=== PATIENT | male | born 1970 | race American Indian/Alaskan Native ===

== ENCOUNTER 2016-11-20 14:05 | Inpatient (IN) | payer MEDICAID ==
[2016-11-20 14:31] VITALS: BMI 23.7
--- NOTE | 2016-11-20 15:24 | ED PDOC ---
Arrival/HPI - General Historian: Patient - General Chief Complaint: Alcohol Ingestion Time Seen by Provider: 11/20/16 14:39 - History of Present Illness Narrative History of Present Illness (Text): 11/20/16 15:21 46yr old male presents today with alcohol intoxication and depression, requesting "help". pt denies fever/chills. denies cp or sob. admits to drinking alcohol today. pt c/o depression, states if he doesnt get help he will kill himself. denies vomiting/diarrhea. denies recent trauma or injury. admits to using cocaine. pt also with foul smelling wound to plantar aspect of left foot. no other complaints. 11/20/16 20:10 (Mora Gallagher) Past Medical History - Provider Review Nursing Documentation Reviewed: Yes - Travel History Have you recently traveled outside [place] w/in the past 3 mons?: No - Infectious Disease Hx of Infectious Diseases: None - Tetanus Immunization Tetanus Immunization: Unknown - Cardiac Hx Cardiac Disorders: Yes (Angina) Hx Hypertension: Yes - Pulmonary Hx Respiratory Disorders: Yes Hx Pneumonia: Yes - Neurological Hx Neurological Disorder: No - HEENT Hx HEENT Disorder: No - Renal Hx Renal Disorder: No - Endocrine/Metabolic Hx Diabetes Mellitus Type 2: Yes - Hematological/Oncological Hx Blood Disorders: No - Integumentary Hx Dermatological Disorder: No - Musculoskeletal/Rheumatological Hx Musculoskeletal Disorders: Yes Hx Falls: No Hx Unsteady Gait: Yes - Gastrointestinal Hx Gastrointestinal Disorders: No - Genitourinary/Gynecological Hx Genitourinary Disorders: Yes Other/Comment: urinary retention - Psychiatric Hx Psychophysiologic Disorder: Yes Hx Anxiety: Yes Hx Depression: Yes Hx Hallucinations: Yes Hx Substance Use: No - Surgical History Other/Comment: "left foot surgery" - Anesthesia Hx Anesthesia: Yes Hx Anesthesia Reactions: No Hx Malignant Hyperthermia: No - Suicidal Assessment Feels Threatened In Home Enviroment: No Family/Social History - Physician Review Nursing Documentation Reviewed: Yes Family/Social History: Unknown Family HX Smoking Status: Heavy Smoker > 10 Cigarettes Daily Hx Alcohol Use: Yes Frequency of alcohol use: Daily Hx Substance Use: No Hx Substance Use Treatment: No Allergies/Home Meds Allergies/Adverse Reactions: Allergies No Known Allergies Allergy (Verified 11/20/16 14:31) Review of Systems - Review of Systems Constitutional: absent: Fatigue, Fevers Respiratory: absent: SOB, Cough Cardiovascular: absent: Chest Pain, Palpitations Gastrointestinal: absent: Abdominal Pain, Nausea, Vomiting Genitourinary Male: absent: Dysuria, Frequency, Hematuria Musculoskeletal: absent: Arthralgias, Back Pain, Neck Pain Skin: Skin Lesions (plantar aspect of left foot.) Neurological: absent: Headache, Dizziness Psychiatric: Depression, Suicidal Ideation. absent: Anxiety Physical Exam Vital Signs Reviewed: Yes Temperature: Afebrile Blood Pressure: Hypertensive Pulse: Tachycardic Respiratory Rate: Normal Appearance: Positive for: Well-Appearing, Non-Toxic, Comfortable Pain Distress: None Mental Status: Positive for: Alert and Oriented X 3 - Systems Exam Head: Present: Atraumatic Mouth: Present: Moist Mucous Membranes Respiratory/Chest: Present: Clear to Auscultation Cardiovascular: Present: Tachycardic. No: Murmurs Abdomen: Present: Normal Bowel Sounds. No: Tenderness, Distention, Peritoneal Signs, Rebound, Guarding Back: Present: Normal Inspection. No: Midline Tenderness, Paraspinal Tenderness Upper Extremity: Present: Normal Inspection, Normal ROM Lower Extremity: Present: NORMAL PULSES, Normal ROM, Tenderness (left foot; there is a quarter sized ulceration on the plantar aspect of the left foot over the 5th metatarsal. + edema. foul smell noted. no discharge. ), Neurovascularly Intact, Capillary Refill < 2 s. No: CALF TENDERNESS, Swelling, Deformity Neurological: Present: GCS=15, Speech Normal Skin: Present: Warm, Dry Psychiatric: Present: Alert Vital Signs Temp Pulse Resp BP Pulse Ox 11/20/16 18:59 98.0 F 102 H 18 115/60 97 11/20/16 14:26 98.2 F 110 H 18 146/98 H 98 Medical Decision Making ED Course and Treatment: I was available for consultation during PA evaluation. The chart was reviewed by me, and I agree with disposition. The documented history was done by the physician production inspector. The documented physical exam was done by the physician production inspector. The documented procedures were done by the physician production inspector. (Sang Haro) 11/20/16 15:32 46 yr old male presents today for pes evaluation, admit to drinking and using cocaine. c/o depression. cbc wbc; 13.6 cmp: glucose; 311 Ua: + glucose UDS: + cocaine tylenol wnl etoh; 179 salicylates; wnl EKG: sinus tachycardia at 107b/m no st elevations, normal axis normal intervals cxr:wnl left foot; + bony irregularity noted to the 5th metatarsal. vanco and zosyn given IV. NS iv bolus case discussed with dr. holland; will admit to med/surg for diabetic foot ulcer with hyperglycemia; non compliant. impression: hyperglycemia, leukocytosis, foot ulcer admit to med/surg with psych consult. (Mora Gallagher) - Lab Interpretations Lab Results: 11/20/16 15:21 11/20/16 15:21 Lab Results 11/20/16 18:57: POC Glucose (mg/dL) 374 H 11/20/16 16:07: Urine Opiates Screen Negative, Urine Methadone Screen Negative, Ur Barbiturates Screen Negative, Ur Phencyclidine Scrn Negative, Ur Amphetamines Screen Negative, U Benzodiazepines Scrn Negative, U Oth Cocaine Metabols Positive H, U Cannabinoids Screen Negative 11/20/16 16:07: Urine Color Light yellow, Urine Appearance Clear, Urine pH 6.0, Ur Specific [place] <= 1.005, Urine Protein Negative, Urine Glucose (UA) 500 H, Urine Ketones Negative, Urine Blood Trace-intact H, Urine Nitrate Negative, Urine Bilirubin Negative, Urine Urobilinogen 0.2, Ur Leukocyte Esterase Trace H , Urine RBC Negative, Urine WBC 0 - 2, Ur Epithelial Cells None, Urine Bacteria Neg 11/20/16 15:21: Salicylates < 1 L, Acetaminophen < 10.0 L 11/20/16 15:21: WBC 13.6 H D, RBC 4.18, Hgb 11.8 L, Hct 33.8 L, MCV 80.9, MCH 28.2, MCHC 34.9, RDW 14.2, Plt Count 285, MPV 10.0, Gran % 67.5, Lymph % (Auto) 23.9, [place] % (Auto) 7.2 H, Eos % (Auto) 1.0 L, Baso % (Auto) 0.4, Gran # 9.17 H , Lymph # 3.2, [place] # 1.0 H, Eos # 0.1, Baso # 0.06 11/20/16 15:21: Alcohol, Quantitative 179 H 11/20/16 15:21: Sodium 139, Potassium 4.0, Chloride 100, Carbon Dioxide 23, Anion Gap 20, BUN 9, Creatinine 0.8, Est GFR ( Amer) > 60, Est GFR (Non- Af Amer) > 60, Random Glucose 311 H* D, Calcium 9.8, Total Bilirubin 0.7, AST 37 , ALT 39, Alkaline Phosphatase 104, Lactate Dehydrogenase 479, Total Creatine Kinase 183, Troponin I 0.02, Total Protein 8.3, Albumin 4.5, Globulin 3.8, Albumin/Globulin Ratio 1.2, Lipase 42 - RAD Interpretation Radiology Orders: 11/20/16 14:53 CHEST PORTABLE [RAD] Stat 11/20/16 19:03 FOOT LEFT 3 VIEWS ROUTINE [RAD] Stat - Medication Orders Current Medication Orders: Vancomycin HCl (Vancomycin 1gm) 1 gm in 250 mls @ 167 mls/hr IVPB STAT STA PRN Reason: Protocol Stop: 11/20/16 20:32 Last Admin: 11/20/16 20:01 Dose: 167 mls/hr Discontinued Medications Piperacillin Sod/Tazobactam Sod (Zosyn 3.375 In Ns 100ml) 100 mls @ 200 mls/hr IVPB STAT STA PRN Reason: Protocol Stop: 11/20/16 19:32 Last Admin: 11/20/16 19:58 Dose: 200 mls/hr Disposition/Present on Arrival - Present on Arrival Any Indicators Present on Arrival: Yes History of DVT/PE: No History of Uncontrolled Diabetes: Yes Urinary Catheter: No History of Decub. Ulcer: No History Surgical Site Infection Following: CABG - Mediastinitis, None - Disposition Have Diagnosis and Disposition been Completed?: Yes Disposition Time: 19:00 Patient Plan: Admission - Disposition Diagnosis: Diabetic foot ulcer associated with type 2 diabetes mellitus, Cocaine abuse, Depression Disposition: HOSPITALIZED Condition: FAIR
[2016-11-20 15:28] LABS: ADD MANUAL DIFF? NO
[2016-11-20 15:45] LABS: BASO # 0.06 K/mm3 (0.0-2.0); BASO % 0.4 % (0.0-3.0); EOS # 0.1 (0.0-0.7); GRAN # 9.17 (1.4-6.5); GRAN % 67.5 % (50.0-68.0); HEMATOCRIT 33.8 % (42.0-52.0); LYMPH # 3.2 (1.2-3.4); LYMPH % 23.9 % (22.0-35.0); MEAN CELL VOLUME 80.9 fL (80.0-105.0); MEAN CORPUSCULAR HEMOGLOBIN 28.2 pg (25.0-35.0); MEAN CORPUSCULAR HGB CONC 34.9 g/dl (31.0-37.0); MONO % 7.2 % (1.0-6.0); PLATELET COUNT 285 10^3/uL (120.0-450.0); RED CELL DISTRIBUTION WIDTH 14.2 % (11.5-14.5); WHITE BLOOD COUNT 13.6 10^3/ul (4.5-11.0)
[2016-11-20 15:56] LABS: ALB/GLOB RATIO 1.2 (1.1-1.8); ALKALINE PHOSPHATASE 104 U/L (38-133); ALT/SGPT 39 U/L (7-56); AST/SGOT 37 U/L (15-59); BILIRUBIN,TOTAL 0.7 mg/dL (0.2-1.3); BLOOD UREA NITROGEN 9 mg/dL (7-21); CALCIUM 9.8 mg/dL (8.4-10.5); CARBON DIOXIDE 23 mmol/L (21-33); CHLORIDE 100 mmol/L (98-107); GFR AFRICAN-AMERICAN > 60; LIPASE 42 U/L (23-300); SODIUM 139 mmol/L (132-148); TOTAL PROTEIN 8.3 g/dL (5.8-8.3)
[2016-11-20 16:03] LABS: GLUCOSE,RANDOM 311 mg/dL (70-110)
[2016-11-20 16:07] LABS: TROPONIN I 0.02 ng/mL
[2016-11-20 16:24] LABS: URINE APPEARANCE CLEAR (CLEAR); URINE BILIRUBIN NEGATIVE (NEGATIVE); URINE BLOOD TRACE-INTACT (NEGATIVE); URINE COLOR LIGHT YELLOW (YELLOW); URINE GLUCOSE (UA) 500 mg/dL (NEGATIVE); URINE KETONE NEGATIVE (NEGATIVE); URINE LEUKOCYTE ESTERASE TRACE Leu/uL (NEGATIVE); URINE PROTEIN NEGATIVE mg/dL (<30 mg/dL); URINE UROBILINOGEN 0.2 E.U./dL (<1 E.U./dL)
--- NOTE | 2016-11-20 17:00 | RAD ---
HISTORY: pes eval COMPARISON: Chest x-ray performed 08/31/16 TECHNIQUE: Chest, one view. FINDINGS: LUNGS: No focal consolidation. Please note that chest x-ray has limited sensitivity for the detection of pulmonary masses. PLEURA: No significant pleural effusion identified. No definite pneumothorax . CARDIOVASCULAR: The cardiomediastinal silhouette appears within normal limits of size. OSSEOUS STRUCTURES: Degenerative changes of the spine. VISUALIZED UPPER ABDOMEN: Unremarkable. OTHER FINDINGS: None. IMPRESSION: No focal consolidation, significant pleural effusion, or definite pneumothorax identified.
[2016-11-20 17:33] LABS: URINE BACTERIA NEG (NEG); URINE RBC NEGATIVE /hpf (0-2); URINE WBC 0 - 2 /hpf (0-6)
[2016-11-20] MEDS ORDERED: Piperacillin/Tazobact 3.375 gm 100 ML IVPB STA (19:03)
[2016-11-20] MEDS ORDERED: Vancomycin 1gm in NS 250ml 1 GM/250 ML BAG IVPB STA (19:03)
[2016-11-20] MEDS ORDERED: Sodium Chloride 0.9% 1,000 ML IV STA (20:21)
--- NOTE | 2016-11-20 22:20 | CARD ---
APPROVED REPORT EKG Measurement Heart [id number] <Conclusion> Sinus tachycardia Otherwise normal ECG
[2016-11-20] MEDS ORDERED: Oxycodone/Acetaminophen 5/325 mg Tab PO PRN (23:13)
[2016-11-20] MEDS: Insulin Reg-MEDIUM-Coverage SC SCH (23:50)
[2016-11-20] MEDS ORDERED: Insulin Regular 1 UNITS/0.01 ML ML ONE (23:52)
[2016-11-21] MEDS: Piperacillin/Tazobact 3.375 gm 100 ML IVPB SCH ×4 (03:06→18:19)
[2016-11-21] MEDS ORDERED: Sodium Chloride 0.9% 1,000 ML IV SCH (04:00)
--- NOTE | 2016-11-21 04:34 | CP.PCM.HP ---
<Astrid Schaefer - Last Filed: 11/21/16 04:33> History of Present Illness - History of Present Illness History of Present Illness: 46 year old male with past medical history of hypertension, diabetes, diabetic foot ulcer, left foot osteomyelitis presents to [facility] ED complaining of left foot pain and feeling depressed. Patient was hospitalized and discharged from [facility] in August 2016 for infect diabetic foot ulcer and a mechanical fall. Patient was instructed to follow up with Dr. Azul at the wound clinic routinely after hospital discharge but he only was able to go once. Patient is also not compliant with his medications. Patient states he came to the hospital today hoping to get admitted to the alcohol detox unit. Patient reports he drinks 3 days out of a week. He usually drinks 6 to 7 large size beer cans each time. His last drink was 9am this morning. Patient also reports of cocaine use, last use was 3 days ago. Patient admits to have thoughts of suicide but does not have a concrete plans nor attempts in the past. Patient states I am just so fed up with life right now. He denies having auditory or visual hallucinations, headache, fever, chills, shortness of breath, chest pain, abdominal pain, nausea, vomiting, diarrhea, or urinary complaints. PMD: Dr. Sousa PMHx: hypertension, diabetes, diabetic foot ulcer, left foot osteomyelitis Allergy: Social hx: drinks alcohol 3 days out of a week, admits to tobacco smoking and cocaine use Family hx Home meds: metformin, amlopidine, lisinopril Present on Admission - Present on Admission Any Indicators Present on Admission: No History of DVT/PE: No History of Uncontrolled Diabetes: No Review of Systems - Constitutional Constitutional: As Per HPI, Lethargy. absent: Chills, Fever, Headache - EENT Eyes: As Per HPI. absent: Blurred Vision, Irritation, Loss of Vision Ears: As Per HPI. absent: Dizziness Nose/Mouth/Throat: As Per HPI. absent: Change in Voice, Dysphagia - Cardiovascular Cardiovascular: As Per HPI. absent: Chest Pain, Chest Pain with Activity, Dyspnea - Respiratory Respiratory: As Per HPI. absent: Cough, Dyspnea, Wheezing - Gastrointestinal Gastrointestinal: As Per HPI. absent: Diarrhea, Nausea, Vomiting - Genitourinary Genitourinary: absent: Urinary Frequency, Urinary Hesitance, Urinary Urgency - Musculoskeletal Musculoskeletal: As Per HPI. absent: Deformity, Numbness, Tingling - Integumentary Integumentary: As Per HPI. absent: Erythema, Lesions, Pruritus, Rash - Neurological Neurological: As Per HPI. absent: Dizziness, Numbness, Syncope, Tremor - Psychiatric Psychiatric: As Per HPI, Depression, Suicidal Ideation. absent: Auditory Hallucinations, Visual Hallucinations - Endocrine Endocrine: As Per HPI - Hematologic/Lymphatic Hematologic: As Per HPI Past Patient History - Infectious Disease Hx of Infectious Diseases: None - Tetanus Immunizations Tetanus Immunization: Unknown - Past Social History Smoking Status: Current Some Days Smoker - CARDIAC Hx Cardiac Disorders: Yes Hx Angina: Yes Hx Hypercholesterolemia: Yes Hx Hypertension: Yes - PULMONARY Hx Respiratory Disorders: Yes Hx Pneumonia: Yes - NEUROLOGICAL Hx Neurological Disorder: No - HEENT Hx HEENT Problems: No - RENAL Hx Chronic Kidney Disease: No - ENDOCRINE/METABOLIC Hx Endocrine Disorders: Yes Hx Diabetes Mellitus Type 2: Yes - HEMATOLOGICAL/ONCOLOGICAL Hx Blood Disorders: No - INTEGUMENTARY Hx Dermatological Problems: No - MUSCULOSKELETAL/RHEUMATOLOGICAL Hx Musculoskeletal Disorders: Yes Hx Falls: Yes (3 months ago (Aug 2016)) Hx Unsteady Gait: Yes - GASTROINTESTINAL Hx Gastrointestinal Disorders: No - GENITOURINARY/GYNECOLOGICAL Hx Genitourinary Disorders: No - PSYCHIATRIC Hx Psychophysiologic Disorder: Yes Hx Anxiety: Yes Hx Depression: Yes Hx Hallucinations: Yes Hx Substance Use: Yes - SURGICAL HISTORY Hx Surgeries: Yes (left foot) - ANESTHESIA Hx Anesthesia: Yes Hx Anesthesia Reactions: No Hx Malignant Hyperthermia: No Meds Allergies/Adverse Reactions: Allergies Allergy/AdvReac Type Severity Reaction Status Date / Time No Known Allergies Allergy Verified 11/20/16 14:31 Physical Exam - Constitutional Appears: Non-toxic, No Acute Distress - Head Exam Head Exam: ATRAUMATIC, NORMAL INSPECTION, NORMOCEPHALIC - Eye Exam Eye Exam: EOMI, Normal appearance, PERRL - ENT Exam ENT Exam: Mucous Membranes Moist - Neck Exam Neck exam: Positive for: Normal Inspection - Respiratory Exam Respiratory Exam: Clear to Auscultation Bilateral, NORMAL BREATHING PATTERN. absent: Rhonchi, Wheezes, Respiratory Distress - Cardiovascular Exam Cardiovascular Exam: REGULAR RHYTHM, RRR, +S1, +S2 - GI/Abdominal Exam GI & Abdominal Exam: Normal Bowel Sounds, Soft. absent: Tenderness - Extremities Exam Extremities exam: Positive for: normal capillary refill, tenderness, pedal pulses present. Negative for: pedal edema Additional comments: Left foot tenderness in the plantar surface, non-draining ulceration, dark discoloration - Back Exam Back exam: NORMAL INSPECTION. absent: paraspinal tenderness, vertebral tenderness - Neurological Exam Neurological exam: Alert, Oriented x3 - Psychiatric Exam Psychiatric exam: Normal Affect, Normal Mood - Skin Skin Exam: Dry, Warm Results - Vital Signs Recent Vital Signs: Last Vital Signs Temp 97.7 F 11/21/16 02:40 Pulse 92 H 11/21/16 02:40 Resp 20 11/21/16 02:40 BP 151/90 H 11/21/16 02:40 Pulse Ox 98 11/20/16 22:27 - Labs Result Diagrams: 11/20/16 15:21 11/20/16 15:21 Labs: Laboratory Results - last 24 hr 11/20/16 23:49 POC Glucose (mg/dL) 329 H Assessment & Plan - Assessment and Plan (Free Text) Assessment: 46 year old male with past medical history of hypertension, diabetes, diabetic foot ulcer presents with left foot pain and alcohol intoxication Plan: Left Diabetic foot ulcer, hx of osteomyelitis -Leukocytosis at 13.6, afebrile -Vancomycin and zosyn given in the ED -Left foot x-ray showed bony irregularity on 5th metatarsal bone -ID consult, Dr. Garcia help appreciated -Podiatry consult, Dr. Azul help appreciated -Follow up dangelo cultures -Tylenol for mild pain -Percocet for moderate pain Alcohol intoxication -CIWA protocol -No tremors appreciated -Cessation was advised -NS @100ml/hr -multivitamin -Ativan 1mg prn Depression -Psychiatry consult, Dr. Saunders help appreciated DM -Follow up A1c -ISS -FS ACHS -resume metformin HTN -resume lisinopril, Norvasc Cocaine and tobacco abuse -Cessation was advised -nicotine patch Prophylactic measures -protonix for GI ppx -lovenox for DVT ppx <Tate Lopez - Last Filed: 11/22/16 19:51> Results - Vital Signs Recent Vital Signs: Last Vital Signs Temp 98 F 11/21/16 16:00 Pulse 72 11/21/16 16:00 Resp 20 11/21/16 16:00 BP 138/90 11/21/16 16:00 Pulse Ox 98 11/21/16 16:00 - Labs Result Diagrams: 11/21/16 07:00 11/21/16 07:00 Labs: Laboratory Results - last 24 hr 11/21/16 11/22/16 11/22/16 21:30 07:34 11:39 POC Glucose (mg/dL) 272 H 202 H 191 H 11/22/16 16:30 POC Glucose (mg/dL) 175 H Attending/Attestation - Attestation I have personally seen and examined this patient.: Yes I have fully participated in the care of the patient.: Yes I have reviewed all pertinent clinical information: Yes Notes (Text): 11/22/16 19:50 Patient was seen with medical records technician when he was in the ER. Agree with history, physical examination ,assessment and plan.
[2016-11-21] MEDS: Vancomycin 1gm in NS 250ml 1 GM/250 ML BAG IVPB SCH ×2 (05:22→18:21)
[2016-11-21 07:43] LABS: ADD MANUAL DIFF? NO
[2016-11-21 07:59] LABS: BASO # 0.04 K/mm3 (0.0-2.0); BASO % 0.4 % (0.0-3.0); EOS # 0.1 (0.0-0.7); EOS % 1.1 % (1.5-5.0); GRAN # 6.74 (1.4-6.5); GRAN % 60.3 % (50.0-68.0); HEMATOCRIT 30.2 % (42.0-52.0); LYMPH # 3.4 (1.2-3.4); LYMPH % 30.5 % (22.0-35.0); MEAN CELL VOLUME 81.6 fL (80.0-105.0); MEAN CORPUSCULAR HEMOGLOBIN 27.8 pg (25.0-35.0); MEAN CORPUSCULAR HGB CONC 34.1 g/dl (31.0-37.0); MONO # 0.9 (0.1-0.6); MONO % 7.7 % (1.0-6.0); PLATELET COUNT 252 10^3/uL (120.0-450.0); RED CELL DISTRIBUTION WIDTH 14.3 % (11.5-14.5); WHITE BLOOD COUNT 11.2 10^3/ul (4.5-11.0)
--- NOTE | 2016-11-21 08:02 | RAD ---
PROCEDURE: Left Foot Radiographs. HISTORY: foot pain/swelling COMPARISON: MRI left foot 09/03/2016 and left foot x-ray 08/31/2016 FINDINGS: BONES: No interval fracture. Fifth metatarsal head deformity with cortical irregularity and sclerosis and partial subluxation is similar-appearing. The prominent fibular sided soft tissue prominence and mild increased density is also re- noted. Findings consistent with a remote history is of chronic osteomyelitis this soft tissue findings were MR noted as phlegmonous and/or a crescentic developing abscess These radiographic appearances are similar to the 08/31/2016 study. The os peroneum and a ossification bordering the hypertrophic tibial perhaps old trauma and/or an unusual developmental variant -old trauma/old osseous avulsion given the hypertrophic changes of this portion of the tibial plafond are favored. A change here suggested First metatarsal-phalangeal joint space narrowing with minimal hallux valgus orientation. Hammertoe like orientations there is some nonstick ossific areas of lucency in the lateral soft tissues at the proximal phalangeal level - findings were similar on the 08/31/2016 study. Clinical correlation regarding any chronic unhealed ulcers here is needed. Interval periosteal reaction or interval gross osseous destruction appreciated JOINTS: As above SOFT TISSUES: Normal. OTHER FINDINGS: None. IMPRESSION: The 5th metatarsal phalangeal joint deformity/ subluxation is similar. The 1st metatarsal head osseous hypertrophy and patchy sclerosis are similar appearing consistent with chronic osteomyelitis. Acute on chronic pathology is not excluded. No interval periosteal reaction seen here. No interval gross additional cortical destruction suggested. Axilla in the regional soft tissue changes are similar consistent with chronic ulcer in her chronic cellulitis here. For this clinical correlation needed. If symptoms persist/ for further evaluation is needed, consider MRI.
[2016-11-21 08:16] LABS: ALKALINE PHOSPHATASE 84 U/L (38-133); ALT/SGPT 40 U/L (7-56); AST/SGOT 19 U/L (15-59); BILIRUBIN,TOTAL 0.4 mg/dL (0.2-1.3); BLOOD UREA NITROGEN 15 mg/dL (7-21); CALCIUM 8.7 mg/dL (8.4-10.5); CARBON DIOXIDE 25 mmol/L (21-33); CHLORIDE 107 mmol/L (95-110); GFR AFRICAN-AMERICAN > 60; GLUCOSE,RANDOM 194 mg/dL (70-110); POTASSIUM 3.9 mmol/L (3.6-5.0); SODIUM 140 mmol/L (132-148); TOTAL PROTEIN 6.2 g/dL (5.8-8.3)
[2016-11-21] MEDS: Insulin Reg-MEDIUM-Coverage SC SCH ×4 (09:45→21:47)
[2016-11-21] MEDS: Multivitamin With Minerals Tab PO SCH (11:21)
--- NOTE | 2016-11-21 12:10 | CON ---
DATE: 11/21/2016 Shortly, the patient is a 46-year-old male with history of alcohol abuse, as well as substance abuse. The patient has self-reported history of depression. The patient denied history o f being admitted to the psychiatric inpatient unit. The patient initially came to the Emergency Room requesting help with nonspecific complaint. The patient was intoxicated. Alcohol level was 179, an d cocaine was positive. The patient was found to have osteomyelitis, and the patient presently on e medical side with IV antibiotics. This tag writer is very familiar with this patient from the previous admissions on the medical floor. Mo st recent was in 04/2016. The patient has history of noncompliance with medications, as well as foll owup appointments, history of providing incorrect information. The patient was seen today on the medical side. The patient presented to be alert and oriented. The patient has vague complaints. The patient was saying that he has difficulty to stay focused and mem ory problems, but it could be related to the substance abuse and alcohol use disorder. The patient r eported that his 4 kids were killed, and it was not new, and the patient had that loss years back. T he patient reported that he lives with his current partner in [place], and he has a 2-year-old so n. The patient also reported that he has a 12-year-old daughter. The patient reported that he was n ot able to work because of the pain in his leg, and he is applying for disability. The patient denie d hearing voices, denied seeing things, denied paranoid ideations. VITAL SIGNS: Reviewed. Temperature is 97.7. Pulse is 92, blood pressure 151/90, respirations 20. Oxygen saturation is 98. MEDICATIONS: Reviewed. The patient is on Tylenol, Norvasc, Humulin, Zestril, Ativan 1 mg IV push q. 6 hours as needed, Glucophage, multivitamins, Percocet, Zosyn, sodium chloride, and vancomycin. LABORATORY DATA: Reviewed. Hematology: WBC cells 11.2, hemoglobin and hematocrit 10.3 and 30.2. G ranulocytes ____. Chemistry reviewed. AST and ALT within normal limits. Random glucose is 194. Ur inalysis was reviewed. The patient has blood in his urine, glucose 500, and leukocyte esterase is tr jennifer high. Toxicology was positive for cocaine as well as alcohol level was 179. The patient reported that he fills his medications at [facility], , as well as [facility], . This tag writer gave a call to the [facility]. Last time the patient filled medication was in 2015. The patient was on Glyburide, as well as Xanax 1 mg daily, filled in 01/[address] Wild Traylor. [place] [facility] - nobody picked up the phone. MENTAL STATUS EXAMINATION: The patient presented to be alert and oriented, awake with ____, intermi ttent eye contact. Speech was over-inclusive, lack of details. Mood described "things are not going well." Affect was reactive, mood congruent. Thought process was over-inclusive, circumstantial. T hought content: The patient denies visual, auditory, or tactile hallucinations. Denied paranoid pedro ations. The patient denied thoughts of harming himself or others, denied intent or plan. Insight an d judgment are limited. Impulses are well controlled. IMPRESSION: This tag writer has impression that the patient is abusing cocaine, as well as alcohol, rule out stimulant use disorder and alcohol use disorder. Most likely mood is related to the substances what he is taking. At the present moment, this tag writer cannot exclude that the patient has malingerin g. The patient is applying for social security disability and looking for a stay in the hospital. T he patient has multiple medical problems including hypertension, diabetes, diabetic foot ulcer, left foot osteomyelitis. PLAN: Continue current management. Continue current medications. The patient is on Ativan as neede d for withdrawal symptoms. This tag writer could implement Cymbalta for the patient for depressive sympt oms as well as neuropathy. The patient could have Neurontin at the nighttime in case of insomnia. T his tag writer does not feel that the patient needs to be transferred to the psychiatric inpatient unit. As per pharmacy, the patient was not filling any psychotropic medications since 2015. The patient w ill be on the medical side. He is on contact isolation. We will follow up on this patient every oth er day. Thank you so much for letting me participate in the care of your patient. Shelly Saunders MD cc: [phone] TT: 11/21/2016 12:10:00 Confirmation # [id number] Dictation # [id number] jn
--- NOTE | 2016-11-21 12:25 | PN ---
DATE: 11/21/2016 The patient requested to see this automotive service writer again. The patient asked to be seen by urologist because he has blood in his urine. The patient appears to be concerned about that. At the same time, the gladys ent was educated about Cymbalta, Neurontin. Risks, benefits and alternatives of the medications were discussed. The patient seems to be concerned about his health. The patient does not appear to be d epressed, suicidal or psychotic. Thank you very much for letting me participate in the care of your patient. Nursing staff was notifi ed. Consult will be initiated by medical team if they are in agreement with that plan. Shelly Saunders MD cc: [id number] TT: 11/21/2016 10:41:28 Confirmation # [id number] Dictation # [id number] jese
--- NOTE | 2016-11-21 17:10 | PN ---
DATE: 11/21/2016 HISTORY OF PRESENT ILLNESS: This patient is a 46-year-old male seen at bedside for a diabetic foot ul cer to his left foot. This is a chronic problem with this patient. He never follows up at the wound care center. I asked him why he did not follow up and he states that the wound went on to heal. I did also tell him that he needed to get diabetic shoes to prevent the wound from reoccurring. Gillian hernandez, he states that they are so ugly and he is too young to wear those type of shoes. PAST MEDICAL HISTORY: Positive for hypertension, diabetes and a history of osteomyelitis to the same area that he has at this time. He had been treated with 5 weeks of IV antibiotic therapy at which t alee the wound went on to heal last year. The patient at this visit is stating that he is depressed, that he is tired of drinking and doing drugs and that he wants to go into rehabilitation. He needs a n inpatient rehabilitation in order to help him get clean. The patient's medications were reviewed. He has been seen by psych and he is presently on Ativan and Cymbalta as well as Glucophage, Humulin, Neurontin, Norvasc, OxyContin for pain, which I am going to stop, sodium chloride and multivitamin. The patient also is on folic acid daily. VITAL SIGNS: Reviewed. His temperature is 97.4, his pulse is 73. His blood pressure is 141/88. LABORATORY DATA: The patient's labs were reviewed. His white cell count upon admission is 13.6; it is 11.2 today with the IV antibiotics. His H and H is 10.3 and 30.2. His chemistry shows grossly wi thin normal except for his glucose at 194. His urine had over 500 glucose and his toxicology was pos itive for alcohol and cocaine. PHYSICAL EXAMINATION: The patient's foot was inspected. He has 1/4 palpable pedal pulses. He has a callus on the plantar aspect of his 5th MPJ on the left foot. He is insensate to feeling on his lef t foot and with permission, we debrided the callus and found an abscess. There was approximately 4-5 mL of a pink purulence which was released. However, this wound goes right to the bone. I discussed with the patient that this means another round of IV antibiotics. I also spoke with the patient abou t surgical correction for this wound. I told him that we could debride the bone, which would definit jose take care of the infection; however, that would involve losing his pinky toe and part of the 5th metatarsal. The patient states he does not want to lose any of his foot at this time. He wants to t ry antibiotics again. The patient's x-rays were reviewed. There is callus formation around the 5th metatarsal and 5th MPJ secondary to the old osteomyelitis. At this time, there is no new periosteal lifting or erosions noted; however, because this wound probes right to that bone, he has to be consid ered positive for osteomyelitis. The patient's chest x-ray was also reviewed and there does not appe ar to be any pleural effusions. ASSESSMENT: A diabetic with neuropathy with abscess to the left foot and osteomyelitis of the 5th me tatarsal of the right foot. PLAN OF TREATMENT: Bedside I and D was done with the patient's permission and extrusion of abscess. The wound was copiously flushed with saline and iodoform packing was placed into the cavity. The pa tient will need to be off-weightbearing. He does have an off-weightbearing shoe which we had given t o him before which he does not use and he will be seen in followup. A dry sterile dressing was place d on it and the cultures were sent to down to pathology. The patient will be seen in followup. Emani Azul DPM cc: [id number] TT: 11/21/2016 17:09:50 Confirmation # [id number] Dictation # [id number] twyla
[2016-11-21 17:25] LABS: URINE BILIRUBIN NEGATIVE (NEGATIVE); URINE BLOOD TRACE-LYSED (NEGATIVE); URINE GLUCOSE (UA) 100 mg/dL (NEGATIVE); URINE KETONE NEGATIVE (NEGATIVE); URINE LEUKOCYTE ESTERASE TRACE Leu/uL (NEGATIVE); URINE PROTEIN NEGATIVE mg/dL (<30 mg/dL); URINE UROBILINOGEN 0.2 E.U./dL (<1 E.U./dL)
[2016-11-21 17:32] LABS: URINE APPEARANCE CLEAR (CLEAR); URINE COLOR YELLOW (YELLOW)
[2016-11-21 18:04] LABS: URINE EPITHELIAL CELLS 0 - 2 /hpf (0-5)
[2016-11-21 18:05] LABS: URINE BACTERIA SMALL (NEG)
[2016-11-22] MEDS ORDERED: Lidocaine 2% Inj (20ml) ONE (14:18)
--- NOTE | 2016-11-22 16:19 | CON ---
DATE: 11/22/2016 LOCATION: 576, bed 2. The patient was seen earlier this morning. REASON FOR CONSULTATION: Left foot pain and possible infection. HISTORY OF PRESENT ILLNESS: We have a 46-year-old male with past medical history of alcoholism, illi cit drug use, history of osteomyelitis of the left foot, who comes in complaining of worsening of lef t foot pain for the past 3-4 days; however, the pain has been present for a few weeks now. The patie nt was recently admitted in [facility] for the same problem, and the patient is noted to have a history of osteomyelitis of the same area, the 5th metatarsal head on the left foot. This erin e the pain has been worsening and there is also a note of ulcer, although there is note of some disch arge but it is not thick and purulent. The patient denies animal contacts, denies wading in [place] r swimming in [place], denies walking barefoot on soil, has not had any travel outside of [place] i n the past 3 months, denies fever or chills, no nausea, no vomiting, no headache, no dizziness, no bl urring of vision, no sore throat, no odynophagia, no dysphagia, no rhinorrhea, no chest pain, no abdo rosalio pain, no diarrhea and no dysuria, no hematuria. Because of the possible infection, infectious disease has been consulted for further evaluation and management. REVIEW OF SYSTEMS: As per history of present illness. PAST MEDICAL HISTORY: As per history of present illness. FAMILY MEDICAL HISTORY: Noncontributory. PERSONAL AND SOCIAL HISTORY: The patient is an occasional smoker, occasional illicit drug user, also drinks alcoholic beverages. OBJECTIVE: VITAL SIGNS: The patient is afebrile, blood pressure 130/70, heart rate of 84, respiratory rate of 2 0. HEAD AND NECK: Normocephalic, atraumatic. CHEST: Decreased breath sounds bilaterally. HEART: S1, S2 are normal. ABDOMEN: Soft, nontender, not distended. EXTREMITIES: The lateral part of the left foot has an ulcer on the lateral side which probes to bone . LABORATORY DATA: We are able to review the labs from yesterday. WBC count from 13.6 went down to 11 .2, platelets 252. The GFR is greater than 60. Alcohol level is 179. Has positive cocaine on urina ry drug screen. Foot x-ray does not show sequelae of osteomyelitis. ASSESSMENT: We have a 46-year-old male with past medical history of alcohol abuse and illicit drug u se, history of osteomyelitis of the left foot, coming in with probable sepsis due to left foot chroni c osteomyelitis. We have discussed the findings with Dr. Azul, and the patient will need at least 4-6 weeks of IV antibiotics and possible even a longer duration of antibiotic treatment. PLAN: We have started the patient on broad spectrum antibiotics. We will follow up cultures taken b y Dr. Azul's team to see if we can narrow down our broad spectrum antibiotics. The patient will n eed prolonged antibiotic course, as said at least 4-6 weeks but probably a more prolonged course chrissy use of the chronicity of the osteomyelitis. The patient will need to follow up at the wound center w [facility] Dr. Azul and her team. We will continue to follow this patient clinically. Orlando Lim M.D. cc: [id number] TT: 11/22/2016 16:18:42 Confirmation # [id number] Dictation # [id number] macy
[2016-11-23] MEDS: Piperacillin/Tazobact 3.375 gm 100 ML IVPB SCH ×5 (00:17→23:53)
[2016-11-23] MEDS: Vancomycin 1gm in NS 250ml 1 GM/250 ML BAG IVPB SCH ×3 (06:31→17:21)
--- NOTE | 2016-11-23 08:17 | PN ---
DATE: 11/22/2016 SUBJECTIVE: This is a 46-year-old diabetic male patient who was seen at bedside this morning with Dr. Azul present for followup of left foot ulceration. The patient is seen resting comfortably in bed at time of visit. Denies any acute overnight events. Denies fever, nausea, vomiting, chills, shortness of breath or chest pain. Denies any pain or discomfort to the foot at this time. Says he has not been walking very much since he was seen yesterday. The patient also states that he is requesting a rehab facility for possible therapy and possible detox. Denies any other complaints at this time. LOWER EXTREMITY EXAMINATION (LEFT FOOT FOCUSED ): VASCULAR: Pedal pulses are palpable, capillary refill is less than 3 seconds to digits x 5. Skin temperature runs warm to warm from proximal to distal. There is slight nonpitting edema noted to the plantar lateral aspect of the foot at the fifth MTPJ area. NEUROLOGIC: pedal sensation is grossly diminished. DERMATOLOGIC: There is a full thickness ulceration noted to the plantar lateral aspect of the left foot at the MTPJ. Ulceration probes to bone. There is approximately 1 mL of serosanguineous drainage noted on compression of the ulceration. Ulceration measures approximately 0.4 x 0.3 cm x 0.5 cm. There is no malodor, no tracking, no fluctuance, no purulence noted. No surrounding erythema. ORTHO: No tenderness noted on palpation of ulceration or periulcerative site. ASSESSMENT: A 46-year-old male diabetic patient with ulceration to left foot secondary to diabetic neuropathy. PLAN: The patient seen and evaluated with Dr. Azul present. Chart reviewed. Ulceration site flushed copiously with sterile normal saline, 1/4 inch iodoform packing reapplied to the ulceration site. Dressing applied with DSD. . Awaiting wound culture results. Will likely require PICC line for IV antibiotics. Podiatry will continue to follow while he is in-house. 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
[2016-11-23] MEDS: Insulin Reg-MEDIUM-Coverage SC SCH ×4 (09:24→22:48)
[2016-11-23] MEDS: Multivitamin With Minerals Tab PO SCH (09:25)
--- NOTE | 2016-11-23 10:57 | PN ---
DATE: 11/23/2016 The patient was followed up today on the medical side. The patient presented to be alert and oriente d with much improvement to compare with the last time when this database report writer spoke to the patient. The lydia ient reported that he tolerated all medications well. Mood is improving. Sleep is good. Anxiety is under control. VITAL SIGNS: Within normal limits. MEDICATIONS: Reviewed. The patient is on Cymbalta 30 mg daily, Neurontin 300 mg 3 times a day. The patient also is on Ativan as needed as per medical team and patient is on metformin, multivitamins, Zosyn as well as sodium chloride and vancomycin. Microbiology reviewed, gram-negative barron from the wound culture. Reports reviewed. Cardiac catheter ization was done on . Consultation by Dr. Lim was done yesterday. At present moment, patient is septic, on contact isolation, needs to have broad spectrum antibiotics. Collaterals from the nurs ing staff. The patient is doing well, no signs of depression. The patient has good appetite and sle ep. MENTAL STATUS EXAMINATION: The patient alert and oriented, pleasant, cooperative. The patient repor hi his mood is "I'm fine." Affect was more reactive, mood congruent. Speech was more spontaneous, normal rate, tone, quality, and quantity. Thought process was coherent and goal directed. Thought c ontent: The patient denied visual, auditory, tactile hallucinations. Denied paranoid ideation. The patient denied thoughts of killing himself or others, denied intent or plan. Insight and judgment a re improving. Impulses are well controlled. IMPRESSION: Rule out substance-induced mood disorder, rule out mood disorder due to general medical condition. The patient has history of polysubstance abuse and dependence and alcohol abuse and depen dence. PLAN: Continue current management. The patient tolerated Cymbalta well, Neurontin as well. The lydia townsend needs to be followed up with his outpatient psychiatrist. The patient has all of the informatio n about his primary care psychiatrist to follow up there. From this database report writer's perspective, there is n o need for psychiatry team to follow patient up. The patient is not suicidal, not homicidal, not psy chotic. This database report writer will sign off. Should you have any questions, give me a call back. If patient wants to go to rehab, social work evaluation is recommended. Shelly Saunders MD cc: [id number] TT: 11/23/2016 10:56:45 Confirmation # [id number] Dictation # [id number] en
[2016-11-23] MEDS: Oxychlorosene Topical 2 gm Packet TOP SCH (11:50)
--- NOTE | 2016-11-23 12:36 | CP.PCM.PN ---
<Gretchen Garcia - Last Filed: 11/23/16 12:30> Subjective - Date & Time of Evaluation Date of Evaluation: 11/23/16 Time of Evaluation: 11:45 - Subjective Subjective: 46 yo diabetic male patient seen at bedside this morning for follow up of left foot ulceration. Pt seen resting comfortably in bed at time of visit. Pt denies any acute overnight events, denies and pain or discomfort to the left foot at this time. Denies f/n/v/c/sob/cp. Says that he received the PICC line. Denies any other pedal complaints at this time. Objective - Vital Signs/Intake and Output Vital Signs (last 24 hours): Temp Pulse Resp BP Pulse Ox 98.3 F 87 20 131/82 100 11/23/16 08:00 11/23/16 08:00 11/23/16 08:00 11/23/16 09:27 11/23/16 08:00 Intake and Output: 11/23/16 11/23/16 06:59 18:59 Output Total 400 Balance -400 - Medications Medications: Current Medications Acetaminophen (Tylenol 325mg Tab) 650 mg PO Q4 PRN PRN Reason: Pain, Mild (1-3) Acetaminophen (Tylenol 325mg Tab) 650 mg PO Q4 PRN PRN Reason: Fever >100.4 F Amlodipine Besylate (Norvasc) 10 mg PO DAILY [facility] Last Admin: 11/23/16 09:25 Dose: 10 mg Duloxetine HCl (Cymbalta) 30 mg PO DAILY [facility] Last Admin: 11/23/16 09:24 Dose: 30 mg Folic Acid (Folic Acid) 1 mg PO DAILY [facility] Last Admin: 11/23/16 09:24 Dose: 1 mg Gabapentin (Neurontin) 300 mg PO TID [facility] PRN Reason: Protocol Last Admin: 11/23/16 09:25 Dose: 300 mg Vancomycin HCl (Vancomycin 1gm) 1 gm in 250 mls @ 167 mls/hr IVPB Q12H [facility] PRN Reason: Protocol Last Admin: 11/23/16 09:26 Dose: Not Given Piperacillin Sod/Tazobactam Sod (Zosyn 3.375 In Ns 100ml) 100 mls @ 200 mls/hr IVPB Q6 [facility] PRN Reason: Protocol Stop: 11/28/16 00:01 Last Admin: 11/23/16 06:35 Dose: 200 mls/hr Sodium Chloride (Sodium Chloride 0.9%) 1,000 mls @ 100 mls/hr IV .Q10H [facility] Last Admin: 11/21/16 05:01 Dose: 100 mls/hr Insulin Human Regular (Humulin R Med) 0 units SC ACHS [facility] PRN Reason: Protocol Last Admin: 11/23/16 09:24 Dose: 1 units Lisinopril (Zestril) 10 mg PO DAILY [facility] Last Admin: 11/23/16 09:27 Dose: 10 mg Lorazepam (Ativan) 1 mg IVP Q6H PRN; Protocol PRN Reason: Symptoms of alcohol withdrawl Last Admin: 11/21/16 11:22 Dose: 1 mg Metformin HCl (Glucophage) 500 mg PO BID [facility] Last Admin: 11/23/16 09:24 Dose: 500 mg Multivitamins/Minerals (Therapeutic-M Tab) 1 tab PO DAILY [facility] Last Admin: 11/23/16 09:25 Dose: 1 tab Oxychlorosene Sodium (Clorpactin Wcs-90) 2 gm TOP DAILY [facility] Thiamine HCl (Vitamin B1 Tab) 100 mg PO DAILY [facility] Last Admin: 11/23/16 09:27 Dose: 100 mg - Labs Labs: 11/21/16 07:00 11/21/16 07:00 - Constitutional Appears: Non-toxic, No Acute Distress - Extremities Exam Additional comments: Left lower ext. exam: Bandage absent from left foot at time of visit VASC- DP pulse is palpable 2/4, PT pulse is 1/4, skin temp runs warm to warm, cap refill <4 sec to digits x 5, no pedal edema noted NEURO- pedal sensation is grossly diminished DERM- there is a full thickness ulceration noted to the plantar aspect of 5th metatarsal head, scant serosanguinous drainage noted on compression, positive probe to bone, no purulence, no malodor, no sinus tracking, no surrounding or ascending cellulitis appreciated ORTHO- no tenderness to palpation of ulceration site - Neurological Exam Neurological Exam: Alert, Awake, Oriented x3 - Psychiatric Exam Psychiatric exam: Normal Affect, Normal Mood Assessment and Plan - Assessment and Plan (Free Text) Assessment: 46 yo patient with left foot ulceration with likely osteomyelitis of 5th metatarsal Plan: -Pt S&E at bedside -Plan discussed with attending Dr. Alvarado -Chart, labs, vitals reviewed: afebrile, WBC trending down (10.0 today) -Wound flushed with sterile saline, 1/4 inch iodoform packing to wound, with 4x4 gauze and kerlix -Discussed w/ patient that he will require 4-6 weeks of IV abx per PICC for OM of the foot -Advised patient that he may require surgical intervention of the foot at a future date -Pt advised to wear surgical shoe to the left foot when weightbearing -Strongly advised to f/u with wound care center to see Dr. Azul following discharge <Rai Alvarado - Last Filed: 11/23/16 16:42> Objective - Vital Signs/Intake and Output Vital Signs (last 24 hours): Temp Pulse Resp BP Pulse Ox 97.9 F 85 18 123/78 95 11/23/16 15:51 11/23/16 15:51 11/23/16 15:51 11/23/16 15:51 11/23/16 15:51 Intake and Output: 11/23/16 11/23/16 06:59 18:59 Output Total 400 Balance -400 - Medications Medications: Current Medications Acetaminophen (Tylenol 325mg Tab) 650 mg PO Q4 PRN PRN Reason: Pain, Mild (1-3) Acetaminophen (Tylenol 325mg Tab) 650 mg PO Q4 PRN PRN Reason: Fever >100.4 F Amlodipine Besylate (Norvasc) 10 mg PO DAILY [facility] Last Admin: 11/23/16 09:25 Dose: 10 mg Duloxetine HCl (Cymbalta) 30 mg PO DAILY [facility] Last Admin: 11/23/16 09:24 Dose: 30 mg Folic Acid (Folic Acid) 1 mg PO DAILY [facility] Last Admin: 11/23/16 09:24 Dose: 1 mg Gabapentin (Neurontin) 300 mg PO TID [facility] PRN Reason: Protocol Last Admin: 11/23/16 14:15 Dose: 300 mg Vancomycin HCl (Vancomycin 1gm) 1 gm in 250 mls @ 167 mls/hr IVPB Q12H [facility] PRN Reason: Protocol Last Admin: 11/23/16 09:26 Dose: Not Given Piperacillin Sod/Tazobactam Sod (Zosyn 3.375 In Ns 100ml) 100 mls @ 200 mls/hr IVPB Q6 [facility] PRN Reason: Protocol Stop: 11/28/16 00:01 Last Admin: 11/23/16 13:56 Dose: 200 mls/hr Sodium Chloride (Sodium Chloride 0.9%) 1,000 mls @ 100 mls/hr IV .Q10H [facility] Last Admin: 11/21/16 05:01 Dose: 100 mls/hr Insulin Human Regular (Humulin R Med) 0 units SC ACHS [facility] PRN Reason: Protocol Last Admin: 11/23/16 13:14 Dose: 1 units Lisinopril (Zestril) 10 mg PO DAILY [facility] Last Admin: 11/23/16 09:27 Dose: 10 mg Lorazepam (Ativan) 1 mg IVP Q6H PRN; Protocol PRN Reason: Symptoms of alcohol withdrawl Last Admin: 11/21/16 11:22 Dose: 1 mg Metformin HCl (Glucophage) 500 mg PO BID [facility] Last Admin: 11/23/16 09:24 Dose: 500 mg Multivitamins/Minerals (Therapeutic-M Tab) 1 tab PO DAILY [facility] Last Admin: 11/23/16 09:25 Dose: 1 tab Oxychlorosene Sodium (Clorpactin Wcs-90) 2 gm TOP DAILY [facility] Last Admin: 11/23/16 11:50 Dose: 2 gm Thiamine HCl (Vitamin B1 Tab) 100 mg PO DAILY [facility] Last Admin: 11/23/16 09:27 Dose: 100 mg - Labs Labs: 11/22/16 07:00 11/21/16 07:00 Attending/Attestation - Attestation I have personally seen and examined this patient.: Yes I have fully participated in the care of the patient.: Yes I have reviewed all pertinent clinical information, including history, physical exam and plan: Yes
[2016-11-23 12:39] LABS: HEMATOCRIT 31.7 % (42.0-52.0); MEAN CELL VOLUME 82.1 fL (80.0-105.0); MEAN CORPUSCULAR HGB CONC 34.1 g/dl (31.0-37.0); RED CELL DISTRIBUTION WIDTH 14.1 % (11.5-14.5); WHITE BLOOD COUNT 10.1 10^3/ul (4.5-11.0)
[2016-11-23 17:13] LABS: ALKALINE PHOSPHATASE 85 U/L (38-133); ALT/SGPT 39 U/L (7-56); AST/SGOT 33 U/L (15-59); BILIRUBIN,TOTAL 0.7 mg/dL (0.2-1.3); BLOOD UREA NITROGEN 9 mg/dL (7-21); CALCIUM 8.7 mg/dL (8.4-10.5); CARBON DIOXIDE 26 mmol/L (21-33); CHLORIDE 103 mmol/L (95-110); GFR AFRICAN-AMERICAN > 60; GLUCOSE,RANDOM 173 mg/dL (70-110); MAGNESIUM 1.7 mg/dL (1.7-2.2); PHOSPHOROUS 2.7 mg/dL (2.5-4.5); POTASSIUM 3.8 mmol/L (3.6-5.0); SODIUM 135 mmol/L (132-148); TOTAL PROTEIN 6.3 g/dL (5.8-8.3)
--- NOTE | 2016-11-23 21:52 | CP.PCM.PN ---
<Travis Poole - Last Filed: 11/23/16 21:59> Subjective - Date & Time of Evaluation Date of Evaluation: 11/23/16 Time of Evaluation: 07:45 - Subjective Subjective: Patient seen and examined this morning with medical attending. Patient reports no new complaints. Tolerating diet. Pt is s/p PICC line placement. Pending MAYELA placement. No acute events over night. Objective - Vital Signs/Intake and Output Vital Signs (last 24 hours): Temp Pulse Resp BP Pulse Ox 97.9 F 85 18 123/78 95 11/23/16 15:51 11/23/16 15:51 11/23/16 15:51 11/23/16 15:51 11/23/16 15:51 - Medications Medications: Current Medications Acetaminophen (Tylenol 325mg Tab) 650 mg PO Q4 PRN PRN Reason: Pain, Mild (1-3) Acetaminophen (Tylenol 325mg Tab) 650 mg PO Q4 PRN PRN Reason: Fever >100.4 F Amlodipine Besylate (Norvasc) 10 mg PO DAILY [facility] Last Admin: 11/23/16 09:25 Dose: 10 mg Duloxetine HCl (Cymbalta) 30 mg PO DAILY [facility] Last Admin: 11/23/16 09:24 Dose: 30 mg Folic Acid (Folic Acid) 1 mg PO DAILY [facility] Last Admin: 11/23/16 09:24 Dose: 1 mg Gabapentin (Neurontin) 300 mg PO TID [facility] PRN Reason: Protocol Last Admin: 11/23/16 17:20 Dose: 300 mg Vancomycin HCl (Vancomycin 1gm) 1 gm in 250 mls @ 167 mls/hr IVPB Q12H [facility] PRN Reason: Protocol Last Admin: 11/23/16 17:21 Dose: 167 mls/hr Piperacillin Sod/Tazobactam Sod (Zosyn 3.375 In Ns 100ml) 100 mls @ 200 mls/hr IVPB Q6 [facility] PRN Reason: Protocol Stop: 11/28/16 00:01 Last Admin: 11/23/16 13:56 Dose: 200 mls/hr Sodium Chloride (Sodium Chloride 0.9%) 1,000 mls @ 100 mls/hr IV .Q10H [facility] Last Admin: 11/21/16 05:01 Dose: 100 mls/hr Insulin Human Regular (Humulin R Med) 0 units SC ACHS [facility] PRN Reason: Protocol Last Admin: 11/23/16 17:20 Dose: 1 units Lisinopril (Zestril) 10 mg PO DAILY [facility] Last Admin: 11/23/16 09:27 Dose: 10 mg Lorazepam (Ativan) 1 mg IVP Q6H PRN; Protocol PRN Reason: Symptoms of alcohol withdrawl Last Admin: 11/21/16 11:22 Dose: 1 mg Metformin HCl (Glucophage) 500 mg PO BID [facility] Last Admin: 11/23/16 17:20 Dose: 500 mg Multivitamins/Minerals (Therapeutic-M Tab) 1 tab PO DAILY [facility] Last Admin: 11/23/16 09:25 Dose: 1 tab Oxychlorosene Sodium (Clorpactin Wcs-90) 2 gm TOP DAILY [facility] Last Admin: 11/23/16 11:50 Dose: 2 gm Thiamine HCl (Vitamin B1 Tab) 100 mg PO DAILY [facility] Last Admin: 11/23/16 09:27 Dose: 100 mg - Labs Labs: 11/22/16 07:00 11/22/16 07:00 - Constitutional Appears: No Acute Distress - Head Exam Head Exam: NORMOCEPHALIC - Eye Exam Eye Exam: Normal appearance - ENT Exam ENT Exam: Mucous Membranes Moist - Respiratory Exam Respiratory Exam: NORMAL BREATHING PATTERN - Cardiovascular Exam Cardiovascular Exam: +S1, +S2 - GI/Abdominal Exam GI & Abdominal Exam: Soft - Extremities Exam Extremities Exam: absent: Pedal Edema - Neurological Exam Neurological Exam: Alert, Awake, Oriented x3 - Psychiatric Exam Psychiatric exam: Normal Mood - Skin Skin Exam: Dry, Warm Assessment and Plan - Assessment and Plan (Free Text) Assessment: 46 year old male with past medical history of hypertension, diabetes, diabetic foot ulcer presents with left foot pain and alcohol intoxication Plan: Left Diabetic foot ulcer, hx of osteomyelitis -WBC nml, afebrile -Vancomycin and zosyn per ID. Patient will need abx for 4-6 weeks -Left foot x-ray showed bony irregularity on 5th metatarsal bone -Podiatry recs appreciated -Wound Cx: + proteus mirabilis, gram - barron. Urine Cx + E.coli -Tylenol for mild pain -Patient awaiting MAYELA placement. Hx of drug abuse, not eligible to go home w/ Picc Line. Alcohol intoxication -[facility] protocol -No tremors appreciated -Cessation was advised -NS @100ml/hr -multivitamin -Ativan 1mg prn -Thiamine, folic acid Depression -Psychiatry consult, recs appreciated -Neurontin, Cymbalta DM -A1c: 8.6 -ISS -FS ACHS -resume metformin HTN -resume lisinopril, Norvasc Cocaine and tobacco abuse -Cessation was advised -nicotine patch Prophylactic measures -protonix for GI ppx -lovenox for DVT ppx Assesment and plan discussed w medical attending. <Ck Kelly MD - Last Filed: 11/24/16 14:26> Objective - Vital Signs/Intake and Output Vital Signs (last 24 hours): Temp Pulse Resp BP Pulse Ox 98 F 83 16 147/93 H 96 11/24/16 08:00 11/24/16 08:00 11/24/16 08:00 11/24/16 09:21 11/24/16 08:00 Intake and Output: 11/24/16 11/24/16 06:59 18:59 Intake Total 480 Output Total 500 Balance -20 - Medications Medications: Current Medications Acetaminophen (Tylenol 325mg Tab) 650 mg PO Q4 PRN PRN Reason: Pain, Mild (1-3) Acetaminophen (Tylenol 325mg Tab) 650 mg PO Q4 PRN PRN Reason: Fever >100.4 F Amlodipine Besylate (Norvasc) 10 mg PO DAILY [facility] Last Admin: 11/24/16 09:20 Dose: 10 mg Duloxetine HCl (Cymbalta) 30 mg PO DAILY [facility] Last Admin: 11/24/16 09:17 Dose: 30 mg Enoxaparin Sodium (Lovenox) 40 mg SC DAILY [facility] PRN Reason: Protocol Last Admin: 11/24/16 09:18 Dose: 40 mg Folic Acid (Folic Acid) 1 mg PO DAILY [facility] Last Admin: 11/24/16 09:18 Dose: 1 mg Gabapentin (Neurontin) 300 mg PO TID [facility] PRN Reason: Protocol Last Admin: 11/24/16 09:19 Dose: 300 mg Vancomycin HCl (Vancomycin 1gm) 1 gm in 250 mls @ 167 mls/hr IVPB Q12H [facility] PRN Reason: Protocol Last Admin: 11/24/16 06:41 Dose: 167 mls/hr Piperacillin Sod/Tazobactam Sod (Zosyn 3.375 In Ns 100ml) 100 mls @ 200 mls/hr IVPB Q6 [facility] PRN Reason: Protocol Stop: 11/28/16 00:01 Last Admin: 11/24/16 13:26 Dose: 200 mls/hr Insulin Human Regular (Humulin R Med) 0 units SC ACHS [facility] PRN Reason: Protocol Last Admin: 11/24/16 09:08 Dose: 1 units Lisinopril (Zestril) 10 mg PO DAILY [facility] Last Admin: 11/24/16 09:21 Dose: 10 mg Lorazepam (Ativan) 1 mg IVP Q6H PRN; Protocol PRN Reason: Symptoms of alcohol withdrawl Last Admin: 11/21/16 11:22 Dose: 1 mg Metformin HCl (Glucophage) 500 mg PO BID [facility] Last Admin: 11/24/16 09:16 Dose: 500 mg Multivitamins/Minerals (Therapeutic-M Tab) 1 tab PO DAILY [facility] Last Admin: 11/24/16 09:20 Dose: 1 tab Oxychlorosene Sodium (Clorpactin Wcs-90) 2 gm TOP DAILY [facility] Last Admin: 11/24/16 09:07 Dose: 2 gm Pantoprazole Sodium (Protonix Ec Tab) 40 mg PO 0630 [facility] Last Admin: 11/24/16 09:20 Dose: 40 mg Thiamine HCl (Vitamin B1 Tab) 100 mg PO DAILY [facility] Last Admin: 11/24/16 09:21 Dose: 100 mg - Labs Labs: 11/24/16 05:45 11/24/16 05:45 Attending/Attestation - Attestation I have personally seen and examined this patient.: Yes I have fully participated in the care of the patient.: Yes I have reviewed all pertinent clinical information, including history, physical exam and plan: Yes Notes (Text): 11/24/16 14:26 Patient was seen and examined with medical laboratory technologist .Agreed with resident assessment and plan. Management plan was discussed in detail with patient Education was provided.
--- NOTE | 2016-11-23 22:34 | CP.PCM.PN ---
Subjective - Date & Time of Evaluation Date of Evaluation: 11/23/16 Time of Evaluation: 10:50 - Subjective Subjective: No new complaints, afebrile. Objective - Vital Signs/Intake and Output Vital Signs (last 24 hours): Temp Pulse Resp BP Pulse Ox 97.9 F 85 18 123/78 95 11/23/16 15:51 11/23/16 15:51 11/23/16 15:51 11/23/16 15:51 11/23/16 15:51 Intake and Output: 11/23/16 11/24/16 18:59 06:59 Intake Total 480 Output Total 500 Balance -20 - Medications Medications: Current Medications Acetaminophen (Tylenol 325mg Tab) 650 mg PO Q4 PRN PRN Reason: Pain, Mild (1-3) Acetaminophen (Tylenol 325mg Tab) 650 mg PO Q4 PRN PRN Reason: Fever >100.4 F Amlodipine Besylate (Norvasc) 10 mg PO DAILY [facility] Last Admin: 11/23/16 09:25 Dose: 10 mg Duloxetine HCl (Cymbalta) 30 mg PO DAILY [facility] Last Admin: 11/23/16 09:24 Dose: 30 mg Enoxaparin Sodium (Lovenox) 40 mg SC DAILY [facility] PRN Reason: Protocol Folic Acid (Folic Acid) 1 mg PO DAILY [facility] Last Admin: 11/23/16 09:24 Dose: 1 mg Gabapentin (Neurontin) 300 mg PO TID [facility] PRN Reason: Protocol Last Admin: 11/23/16 17:20 Dose: 300 mg Vancomycin HCl (Vancomycin 1gm) 1 gm in 250 mls @ 167 mls/hr IVPB Q12H [facility] PRN Reason: Protocol Last Admin: 11/23/16 17:21 Dose: 167 mls/hr Piperacillin Sod/Tazobactam Sod (Zosyn 3.375 In Ns 100ml) 100 mls @ 200 mls/hr IVPB Q6 [facility] PRN Reason: Protocol Stop: 11/28/16 00:01 Last Admin: 11/23/16 13:56 Dose: 200 mls/hr Sodium Chloride (Sodium Chloride 0.9%) 1,000 mls @ 100 mls/hr IV .Q10H [facility] Last Admin: 11/21/16 05:01 Dose: 100 mls/hr Insulin Human Regular (Humulin R Med) 0 units SC ACHS [facility] PRN Reason: Protocol Last Admin: 11/23/16 17:20 Dose: 1 units Lisinopril (Zestril) 10 mg PO DAILY [facility] Last Admin: 11/23/16 09:27 Dose: 10 mg Lorazepam (Ativan) 1 mg IVP Q6H PRN; Protocol PRN Reason: Symptoms of alcohol withdrawl Last Admin: 11/21/16 11:22 Dose: 1 mg Metformin HCl (Glucophage) 500 mg PO BID [facility] Last Admin: 11/23/16 17:20 Dose: 500 mg Multivitamins/Minerals (Therapeutic-M Tab) 1 tab PO DAILY [facility] Last Admin: 11/23/16 09:25 Dose: 1 tab Oxychlorosene Sodium (Clorpactin Wcs-90) 2 gm TOP DAILY [facility] Last Admin: 11/23/16 11:50 Dose: 2 gm Pantoprazole Sodium (Protonix Ec Tab) 40 mg PO 0630 [facility] Thiamine HCl (Vitamin B1 Tab) 100 mg PO DAILY [facility] Last Admin: 11/23/16 09:27 Dose: 100 mg - Labs Labs: 11/22/16 07:00 11/22/16 07:00 - Constitutional Appears: Non-toxic, No Acute Distress - Head Exam Head Exam: NORMAL INSPECTION - ENT Exam ENT Exam: Mucous Membranes Moist - Neck Exam Neck Exam: absent: Lymphadenopathy, Meningismus - Respiratory Exam Respiratory Exam: Decreased Breath Sounds - Cardiovascular Exam Cardiovascular Exam: +S1, +S2 - GI/Abdominal Exam GI & Abdominal Exam: Soft. absent: Tenderness - Extremities Exam Additional comments: left foot with dry dressings in place Assessment and Plan - Assessment and Plan (Free Text) Plan: Assessment Consider left foot ulcer infection with probable osteomyelitis of the 5th metatarsal head and phlegmon - as discussed with Dr. Azul, has history of chronic osteomyelitis; growing gram negative bacilli and gram positive cocci HTN DM history of osteomyelitis of the left foot last year Plan continue Vancomycin and Zosyn pending identification and sensitivities of the bacteria from the wound; will need at least 6 weeks of antibiotics
[2016-11-24] MEDS: Piperacillin/Tazobact 3.375 gm 100 ML IVPB SCH ×4 (05:15→23:39)
[2016-11-24 05:47] LABS: ADD MANUAL DIFF? NO
[2016-11-24 06:03] LABS: BASO # 0.03 K/mm3 (0.0-2.0); BASO % 0.3 % (0.0-3.0); EOS # 0.2 (0.0-0.7); EOS % 1.9 % (1.5-5.0); GRAN # 6.12 (1.4-6.5); LYMPH % 21.1 % (22.0-35.0); MEAN CELL VOLUME 82.3 fL (80.0-105.0); MEAN CORPUSCULAR HEMOGLOBIN 27.8 pg (25.0-35.0); MEAN CORPUSCULAR HGB CONC 33.8 g/dl (31.0-37.0); MEAN PLATELET VOLUME 9.7 fl (7.0-11.0); MONO # 1.1 (0.1-0.6); MONO % 11.7 % (1.0-6.0); PLATELET COUNT 246 10^3/uL (120.0-450.0); WHITE BLOOD COUNT 9.4 10^3/ul (4.5-11.0)
[2016-11-24 06:11] LABS: ALB/GLOB RATIO 1.2 (1.1-1.8); ALKALINE PHOSPHATASE 82 U/L (38-133); ALT/SGPT 43 U/L (7-56); AST/SGOT 31 U/L (15-59); BILIRUBIN,TOTAL 0.8 mg/dL (0.2-1.3); BLOOD UREA NITROGEN 10 mg/dL (7-21); CARBON DIOXIDE 27 mmol/L (21-33); CHLORIDE 104 mmol/L (98-107); GFR AFRICAN-AMERICAN > 60; GLUCOSE,RANDOM 171 mg/dL (70-110); SODIUM 136 mmol/L (132-148); TOTAL PROTEIN 6.5 g/dL (5.8-8.3)
[2016-11-24] MEDS: Vancomycin 1gm in NS 250ml 1 GM/250 ML BAG IVPB SCH ×2 (06:41→17:39)
[2016-11-24] MEDS: Oxychlorosene Topical 2 gm Packet TOP SCH (09:07)
[2016-11-24] MEDS: Insulin Reg-MEDIUM-Coverage SC SCH ×4 (09:08→21:52)
[2016-11-24] MEDS: Enoxaparin 40 mg Syringe SC SCH (09:18)
[2016-11-24] MEDS: Pantoprazole 40 mg EC Tab PO SCH (09:20)
[2016-11-24] MEDS: Multivitamin With Minerals Tab PO SCH (09:20)
--- NOTE | 2016-11-24 09:33 | CP.PCM.PN ---
<Renae Yan - Last Filed: 11/24/16 09:56> Subjective - Date & Time of Evaluation Date of Evaluation: 11/24/16 Time of Evaluation: 08:55 - Subjective Subjective: Pt seen and evaluated at bedside. Pt denies chest pain, foot pain and abdominal pain. Afebrile overnight. Objective - Vital Signs/Intake and Output Vital Signs (last 24 hours): Temp Pulse Resp BP Pulse Ox 97.9 F 85 18 147/93 H 95 11/23/16 15:51 11/23/16 15:51 11/23/16 15:51 11/24/16 09:21 11/23/16 15:51 Intake and Output: 11/24/16 11/24/16 06:59 18:59 Intake Total 480 Output Total 500 Balance -20 - Medications Medications: Current Medications Acetaminophen (Tylenol 325mg Tab) 650 mg PO Q4 PRN PRN Reason: Pain, Mild (1-3) Acetaminophen (Tylenol 325mg Tab) 650 mg PO Q4 PRN PRN Reason: Fever >100.4 F Amlodipine Besylate (Norvasc) 10 mg PO DAILY [facility] Last Admin: 11/24/16 09:20 Dose: 10 mg Duloxetine HCl (Cymbalta) 30 mg PO DAILY [facility] Last Admin: 11/24/16 09:17 Dose: 30 mg Enoxaparin Sodium (Lovenox) 40 mg SC DAILY [facility] PRN Reason: Protocol Last Admin: 11/24/16 09:18 Dose: 40 mg Folic Acid (Folic Acid) 1 mg PO DAILY [facility] Last Admin: 11/24/16 09:18 Dose: 1 mg Gabapentin (Neurontin) 300 mg PO TID [facility] PRN Reason: Protocol Last Admin: 11/24/16 09:19 Dose: 300 mg Vancomycin HCl (Vancomycin 1gm) 1 gm in 250 mls @ 167 mls/hr IVPB Q12H [facility] PRN Reason: Protocol Last Admin: 11/24/16 06:41 Dose: 167 mls/hr Piperacillin Sod/Tazobactam Sod (Zosyn 3.375 In Ns 100ml) 100 mls @ 200 mls/hr IVPB Q6 [facility] PRN Reason: Protocol Stop: 11/28/16 00:01 Last Admin: 11/24/16 05:15 Dose: 200 mls/hr Sodium Chloride (Sodium Chloride 0.9%) 1,000 mls @ 100 mls/hr IV .Q10H [facility] Last Admin: 11/21/16 05:01 Dose: 100 mls/hr Insulin Human Regular (Humulin R Med) 0 units SC ACHS [facility] PRN Reason: Protocol Last Admin: 11/24/16 09:08 Dose: 1 units Lisinopril (Zestril) 10 mg PO DAILY [facility] Last Admin: 11/24/16 09:21 Dose: 10 mg Lorazepam (Ativan) 1 mg IVP Q6H PRN; Protocol PRN Reason: Symptoms of alcohol withdrawl Last Admin: 11/21/16 11:22 Dose: 1 mg Metformin HCl (Glucophage) 500 mg PO BID [facility] Last Admin: 11/24/16 09:16 Dose: 500 mg Multivitamins/Minerals (Therapeutic-M Tab) 1 tab PO DAILY [facility] Last Admin: 11/24/16 09:20 Dose: 1 tab Oxychlorosene Sodium (Clorpactin Wcs-90) 2 gm TOP DAILY [facility] Last Admin: 11/24/16 09:07 Dose: 2 gm Pantoprazole Sodium (Protonix Ec Tab) 40 mg PO 0630 [facility] Last Admin: 11/24/16 09:20 Dose: 40 mg Thiamine HCl (Vitamin B1 Tab) 100 mg PO DAILY [facility] Last Admin: 11/24/16 09:21 Dose: 100 mg - Labs Labs: 11/24/16 05:45 11/24/16 05:45 - Constitutional Appears: Non-toxic, No Acute Distress - Head Exam Head Exam: ATRAUMATIC, NORMOCEPHALIC - Eye Exam Eye Exam: EOMI, Normal appearance - Respiratory Exam Respiratory Exam: Clear to Ausculation Bilateral, NORMAL BREATHING PATTERN - Cardiovascular Exam Cardiovascular Exam: +S1, +S2. absent: Bradycardia - GI/Abdominal Exam GI & Abdominal Exam: Soft. absent: Tenderness - Exam External exam: absent: Lacerations, Swelling - Extremities Exam Extremities Exam: absent: Normal Capillary Refill, Pedal Edema Additional comments: Ulcer of L foot - Neurological Exam Neurological Exam: Alert, Awake - Skin Skin Exam: Normal Color, Warm Assessment and Plan - Assessment and Plan (Free Text) Plan: 46 year old male with past medical history of hypertension, diabetes, diabetic foot ulcer presents with left foot pain and alcohol intoxication Plan: Left Diabetic foot ulcer, hx of osteomyelitis -WBC nml, afebrile -Vancomycin and zosyn per ID. Patient will need abx for 4-6 weeks -Left foot x-ray showed bony irregularity on 5th metatarsal bone -Podiatry recs appreciated -Wound Cx: + proteus mirabilis, gram - barron. Urine Cx + E.coli -Tylenol for mild pain -Patient awaiting MAYELA placement. Hx of drug abuse, not eligible to go home w/ PICC Line. Alcohol intoxication -[facility] protocol -No tremors appreciated -Cessation was advised -multivitamin -Ativan 1mg prn -Thiamine, folic acid Depression -Psychiatry consult, recs appreciated -Neurontin, Cymbalta DM -A1c: 8.6 -ISS -FS ACHS - metformin HTN - lisinopril, Norvasc Cocaine and tobacco abuse -Cessation was advised -nicotine patch Prophylactic measures -protonix for GI ppx -lovenox for DVT ppx Assesment and plan discussed w medical attending. <Robin SIN,Ck - Last Filed: 11/24/16 14:37> Objective - Vital Signs/Intake and Output Vital Signs (last 24 hours): Temp Pulse Resp BP Pulse Ox 98 F 83 16 147/93 H 96 11/24/16 08:00 11/24/16 08:00 11/24/16 08:00 11/24/16 09:21 11/24/16 08:00 Intake and Output: 11/24/16 11/24/16 06:59 18:59 Intake Total 480 Output Total 500 Balance -20 - Medications Medications: Current Medications Acetaminophen (Tylenol 325mg Tab) 650 mg PO Q4 PRN PRN Reason: Pain, Mild (1-3) Acetaminophen (Tylenol 325mg Tab) 650 mg PO Q4 PRN PRN Reason: Fever >100.4 F Amlodipine Besylate (Norvasc) 10 mg PO DAILY [facility] Last Admin: 11/24/16 09:20 Dose: 10 mg Duloxetine HCl (Cymbalta) 30 mg PO DAILY [facility] Last Admin: 11/24/16 09:17 Dose: 30 mg Enoxaparin Sodium (Lovenox) 40 mg SC DAILY [facility] PRN Reason: Protocol Last Admin: 11/24/16 09:18 Dose: 40 mg Folic Acid (Folic Acid) 1 mg PO DAILY [facility] Last Admin: 11/24/16 09:18 Dose: 1 mg Gabapentin (Neurontin) 300 mg PO TID [facility] PRN Reason: Protocol Last Admin: 11/24/16 09:19 Dose: 300 mg Vancomycin HCl (Vancomycin 1gm) 1 gm in 250 mls @ 167 mls/hr IVPB Q12H [facility] PRN Reason: Protocol Last Admin: 11/24/16 06:41 Dose: 167 mls/hr Piperacillin Sod/Tazobactam Sod (Zosyn 3.375 In Ns 100ml) 100 mls @ 200 mls/hr IVPB Q6 [facility] PRN Reason: Protocol Stop: 11/28/16 00:01 Last Admin: 11/24/16 13:26 Dose: 200 mls/hr Insulin Human Regular (Humulin R Med) 0 units SC ACHS [facility] PRN Reason: Protocol Last Admin: 11/24/16 09:08 Dose: 1 units Lisinopril (Zestril) 10 mg PO DAILY [facility] Last Admin: 11/24/16 09:21 Dose: 10 mg Lorazepam (Ativan) 1 mg IVP Q6H PRN; Protocol PRN Reason: Symptoms of alcohol withdrawl Last Admin: 11/21/16 11:22 Dose: 1 mg Metformin HCl (Glucophage) 500 mg PO BID [facility] Last Admin: 11/24/16 09:16 Dose: 500 mg Multivitamins/Minerals (Therapeutic-M Tab) 1 tab PO DAILY [facility] Last Admin: 11/24/16 09:20 Dose: 1 tab Oxychlorosene Sodium (Clorpactin Wcs-90) 2 gm TOP DAILY [facility] Last Admin: 11/24/16 09:07 Dose: 2 gm Pantoprazole Sodium (Protonix Ec Tab) 40 mg PO 0630 [facility] Last Admin: 11/24/16 09:20 Dose: 40 mg Thiamine HCl (Vitamin B1 Tab) 100 mg PO DAILY [facility] Last Admin: 11/24/16 09:21 Dose: 100 mg - Labs Labs: 11/24/16 05:45 11/24/16 05:45 Attending/Attestation - Attestation I have personally seen and examined this patient.: Yes I have fully participated in the care of the patient.: Yes I have reviewed all pertinent clinical information, including history, physical exam and plan: Yes Notes (Text): 11/24/16 14:32 Patient was seen and examined with medical imaging technologist .Agreed with resident assessment and plan. 46 year old male with past medical history of hypertension, diabetes, diabetic foot ulcer presents with left foot pain and alcohol intoxication.Left foot ulcers are likely chronic osteomylitis, need 6 weeks of antibiotics as per ID.Patient has history of IV drug abuse .Wound cultures are growing Proteus mirabilis. He has PICC line placed in and is awaiting Placement, can not be discharged home.Case management is working on disposition. Management plan was discussed in detail with patient Education was provided. 11/24/16 14:36
--- NOTE | 2016-11-24 12:07 | CP.PCM.PN ---
<Shilpa Erazo - Last Filed: 11/24/16 12:04> Subjective - Date & Time of Evaluation Date of Evaluation: 11/24/16 Time of Evaluation: 08:30 - Subjective Subjective: 46 y/o diabetic male patient seen at bedside this morning for follow up of left foot ulceration. Pt seen resting comfortably in bed at time of visit. Pt denies any acute overnight events, denies and pain or discomfort to the left foot at this time. Denies f/n/v/c/sob/cp. Denies any other pedal complaints at this time. Objective - Vital Signs/Intake and Output Vital Signs (last 24 hours): Temp Pulse Resp BP Pulse Ox 98 F 83 16 147/93 H 96 11/24/16 08:00 11/24/16 08:00 11/24/16 08:00 11/24/16 09:21 11/24/16 08:00 Intake and Output: 11/24/16 11/24/16 06:59 18:59 Intake Total 480 Output Total 500 Balance -20 - Medications Medications: Current Medications Acetaminophen (Tylenol 325mg Tab) 650 mg PO Q4 PRN PRN Reason: Pain, Mild (1-3) Acetaminophen (Tylenol 325mg Tab) 650 mg PO Q4 PRN PRN Reason: Fever >100.4 F Amlodipine Besylate (Norvasc) 10 mg PO DAILY [facility] Last Admin: 11/24/16 09:20 Dose: 10 mg Duloxetine HCl (Cymbalta) 30 mg PO DAILY [facility] Last Admin: 11/24/16 09:17 Dose: 30 mg Enoxaparin Sodium (Lovenox) 40 mg SC DAILY [facility] PRN Reason: Protocol Last Admin: 11/24/16 09:18 Dose: 40 mg Folic Acid (Folic Acid) 1 mg PO DAILY [facility] Last Admin: 11/24/16 09:18 Dose: 1 mg Gabapentin (Neurontin) 300 mg PO TID [facility] PRN Reason: Protocol Last Admin: 11/24/16 09:19 Dose: 300 mg Vancomycin HCl (Vancomycin 1gm) 1 gm in 250 mls @ 167 mls/hr IVPB Q12H [facility] PRN Reason: Protocol Last Admin: 11/24/16 06:41 Dose: 167 mls/hr Piperacillin Sod/Tazobactam Sod (Zosyn 3.375 In Ns 100ml) 100 mls @ 200 mls/hr IVPB Q6 [facility] PRN Reason: Protocol Stop: 11/28/16 00:01 Last Admin: 11/24/16 05:15 Dose: 200 mls/hr Insulin Human Regular (Humulin R Med) 0 units SC ACHS [facility] PRN Reason: Protocol Last Admin: 11/24/16 09:08 Dose: 1 units Lisinopril (Zestril) 10 mg PO DAILY [facility] Last Admin: 11/24/16 09:21 Dose: 10 mg Lorazepam (Ativan) 1 mg IVP Q6H PRN; Protocol PRN Reason: Symptoms of alcohol withdrawl Last Admin: 11/21/16 11:22 Dose: 1 mg Metformin HCl (Glucophage) 500 mg PO BID [facility] Last Admin: 11/24/16 09:16 Dose: 500 mg Multivitamins/Minerals (Therapeutic-M Tab) 1 tab PO DAILY [facility] Last Admin: 11/24/16 09:20 Dose: 1 tab Oxychlorosene Sodium (Clorpactin Wcs-90) 2 gm TOP DAILY [facility] Last Admin: 11/24/16 09:07 Dose: 2 gm Pantoprazole Sodium (Protonix Ec Tab) 40 mg PO 0630 [facility] Last Admin: 11/24/16 09:20 Dose: 40 mg Thiamine HCl (Vitamin B1 Tab) 100 mg PO DAILY [facility] Last Admin: 11/24/16 09:21 Dose: 100 mg - Labs Labs: 11/24/16 05:45 11/24/16 05:45 - Constitutional Appears: Well, Non-toxic, No Acute Distress - Extremities Exam Additional comments: Left lower ext. exam: Dressing clean, dry, and disheveled. VASC- DP pulse is palpable 2/4, PT pulse is 1/4, skin temp runs warm to warm, cap refill <4 sec to digits x 5, no pedal edema noted NEURO- pedal sensation is grossly diminished DERM- there is a full thickness ulceration noted to the plantar aspect of 5th metatarsal head, scant serosanguinous drainage noted on compression, positive probe to bone, no purulence, no malodor, no sinus tracking, no surrounding or ascending cellulitis appreciated ORTHO- no tenderness to palpation of ulceration site - Neurological Exam Neurological Exam: Alert, Awake, Oriented x3 - Psychiatric Exam Psychiatric exam: Normal Affect, Normal Mood Assessment and Plan - Assessment and Plan (Free Text) Assessment: 46 yo patient with left foot ulceration with likely osteomyelitis of 5th metatarsal Plan: -Pt seen and evaluated at bedside, with attending Dr. Alvarado present. -Chart, labs, vitals reviewed: afebrile, WBC trending down (9.4 today) -Wound flushed with sterile saline, 1/4 inch iodoform packing to wound, with 4x4 gauze and kerlix -Discussed w/ patient that he will require 4-6 weeks of IV abx per PICC for OM of the foot -Advised patient that he may require surgical intervention of the foot at a future date -Pt advised to wear surgical shoe to the left foot when weightbearing -Strongly advised to f/u with wound care center to see Dr. Azul following discharge <Rai Alvarado - Last Filed: 11/27/16 11:58> Objective - Vital Signs/Intake and Output Vital Signs (last 24 hours): Temp Pulse Resp BP Pulse Ox 98.2 F 75 20 132/92 H 98 11/26/16 16:00 11/26/16 16:00 11/26/16 16:00 11/26/16 16:00 11/26/16 16:00 - Labs Labs: 11/26/16 05:00 11/26/16 05:00 Attending/Attestation - Attestation I have personally seen and examined this patient.: Yes I have fully participated in the care of the patient.: Yes I have reviewed all pertinent clinical information, including history, physical exam and plan: Yes
--- NOTE | 2016-11-24 13:01 | CP.PCM.PN ---
Subjective - Date & Time of Evaluation Date of Evaluation: 11/24/16 Time of Evaluation: 11:10 - Subjective Subjective: Comfortable in bed, not in distress, no nausea, no diarrhea. No fevers. Objective - Vital Signs/Intake and Output Vital Signs (last 24 hours): Temp Pulse Resp BP Pulse Ox 98 F 83 16 147/93 H 96 11/24/16 08:00 11/24/16 08:00 11/24/16 08:00 11/24/16 09:21 11/24/16 08:00 Intake and Output: 11/24/16 11/24/16 06:59 18:59 Intake Total 480 Output Total 500 Balance -20 - Medications Medications: Current Medications Acetaminophen (Tylenol 325mg Tab) 650 mg PO Q4 PRN PRN Reason: Pain, Mild (1-3) Acetaminophen (Tylenol 325mg Tab) 650 mg PO Q4 PRN PRN Reason: Fever >100.4 F Amlodipine Besylate (Norvasc) 10 mg PO DAILY [facility] Last Admin: 11/24/16 09:20 Dose: 10 mg Duloxetine HCl (Cymbalta) 30 mg PO DAILY [facility] Last Admin: 11/24/16 09:17 Dose: 30 mg Enoxaparin Sodium (Lovenox) 40 mg SC DAILY [facility] PRN Reason: Protocol Last Admin: 11/24/16 09:18 Dose: 40 mg Folic Acid (Folic Acid) 1 mg PO DAILY [facility] Last Admin: 11/24/16 09:18 Dose: 1 mg Gabapentin (Neurontin) 300 mg PO TID [facility] PRN Reason: Protocol Last Admin: 11/24/16 09:19 Dose: 300 mg Vancomycin HCl (Vancomycin 1gm) 1 gm in 250 mls @ 167 mls/hr IVPB Q12H [facility] PRN Reason: Protocol Last Admin: 11/24/16 06:41 Dose: 167 mls/hr Piperacillin Sod/Tazobactam Sod (Zosyn 3.375 In Ns 100ml) 100 mls @ 200 mls/hr IVPB Q6 [facility] PRN Reason: Protocol Stop: 11/28/16 00:01 Last Admin: 11/24/16 05:15 Dose: 200 mls/hr Insulin Human Regular (Humulin R Med) 0 units SC ACHS [facility] PRN Reason: Protocol Last Admin: 11/24/16 09:08 Dose: 1 units Lisinopril (Zestril) 10 mg PO DAILY [facility] Last Admin: 11/24/16 09:21 Dose: 10 mg Lorazepam (Ativan) 1 mg IVP Q6H PRN; Protocol PRN Reason: Symptoms of alcohol withdrawl Last Admin: 11/21/16 11:22 Dose: 1 mg Metformin HCl (Glucophage) 500 mg PO BID [facility] Last Admin: 11/24/16 09:16 Dose: 500 mg Multivitamins/Minerals (Therapeutic-M Tab) 1 tab PO DAILY [facility] Last Admin: 11/24/16 09:20 Dose: 1 tab Oxychlorosene Sodium (Clorpactin Wcs-90) 2 gm TOP DAILY [facility] Last Admin: 11/24/16 09:07 Dose: 2 gm Pantoprazole Sodium (Protonix Ec Tab) 40 mg PO 0630 [facility] Last Admin: 11/24/16 09:20 Dose: 40 mg Thiamine HCl (Vitamin B1 Tab) 100 mg PO DAILY [facility] Last Admin: 11/24/16 09:21 Dose: 100 mg - Labs Labs: 11/24/16 05:45 11/24/16 05:45 - Constitutional Appears: Non-toxic, No Acute Distress - Head Exam Head Exam: NORMAL INSPECTION - Neck Exam Neck Exam: absent: Lymphadenopathy, Meningismus - Respiratory Exam Respiratory Exam: Decreased Breath Sounds - Cardiovascular Exam Cardiovascular Exam: +S1, +S2 - GI/Abdominal Exam GI & Abdominal Exam: Soft. absent: Tenderness - Extremities Exam Additional comments: left foot with dry dressings in place Assessment and Plan - Assessment and Plan (Free Text) Plan: Assessment Consider left foot ulcer infection with probable osteomyelitis of the 5th metatarsal head and phlegmon - as discussed with Dr. Azul, has history of chronic osteomyelitis; growing gram negative bacilli and gram positive cocci HTN DM history of osteomyelitis of the left foot last year Plan continue Vancomycin and Zosyn pending identification and sensitivities of the bacteria from the wound; will need at least 6 weeks of antibiotics with weekly ESR, CRP, CBC, CMP Discussed with Dr. Azul previously
[2016-11-25] MEDS: Pantoprazole 40 mg EC Tab PO SCH (05:31)
[2016-11-25] MEDS: Piperacillin/Tazobact 3.375 gm 100 ML IVPB SCH (05:31)
[2016-11-25] MEDS: Vancomycin 1gm in NS 250ml 1 GM/250 ML BAG IVPB SCH (05:32)
[2016-11-25 06:12] LABS: ADD MANUAL DIFF? NO
[2016-11-25 07:11] LABS: BASO # 0.02 K/mm3 (0.0-2.0); BASO % 0.2 % (0.0-3.0); EOS # 0.2 (0.0-0.7); EOS % 1.9 % (1.5-5.0); GRAN # 5.72 (1.4-6.5); GRAN % 67.2 % (50.0-68.0); HEMATOCRIT 30.9 % (42.0-52.0); LYMPH # 1.9 (1.2-3.4); LYMPH % 21.9 % (22.0-35.0); MEAN CELL VOLUME 81.7 fL (80.0-105.0); MEAN CORPUSCULAR HEMOGLOBIN 28.3 pg (25.0-35.0); MEAN CORPUSCULAR HGB CONC 34.6 g/dl (31.0-37.0); MEAN PLATELET VOLUME 9.9 fl (7.0-11.0); MONO # 0.8 (0.1-0.6); MONO % 8.8 % (1.0-6.0); PLATELET COUNT 243 10^3/uL (120.0-450.0); RED CELL DISTRIBUTION WIDTH 13.6 % (11.5-14.5); WHITE BLOOD COUNT 8.5 10^3/ul (4.5-11.0)
[2016-11-25] MEDS: Insulin Reg-MEDIUM-Coverage SC SCH ×4 (08:15→21:44)
[2016-11-25 08:33] LABS: ALB/GLOB RATIO 1.1 (1.1-1.8); ALKALINE PHOSPHATASE 78 U/L (38-133); ALT/SGPT 46 U/L (7-56); AST/SGOT 31 U/L (15-59); BILIRUBIN,TOTAL 0.8 mg/dL (0.2-1.3); BLOOD UREA NITROGEN 8 mg/dL (7-21); CALCIUM 8.8 mg/dL (8.4-10.5); CARBON DIOXIDE 25 mmol/L (21-33); CHLORIDE 105 mmol/L (98-107); GFR AFRICAN-AMERICAN > 60; GLUCOSE,RANDOM 177 mg/dL (70-110); POTASSIUM 3.7 mmol/L (3.6-5.0); SODIUM 136 mmol/L (132-148); TOTAL PROTEIN 6.5 g/dL (5.8-8.3)
[2016-11-25] MEDS: Enoxaparin 40 mg Syringe SC SCH (09:29)
[2016-11-25] MEDS: Oxychlorosene Topical 2 gm Packet TOP SCH (09:29)
[2016-11-25] MEDS: Multivitamin With Minerals Tab PO SCH (09:30)
--- NOTE | 2016-11-25 14:40 | CP.PCM.PN ---
<GaviotaDonaldo - Last Filed: 11/25/16 14:37> Subjective - Date & Time of Evaluation Date of Evaluation: 11/25/16 Time of Evaluation: 07:45 - Subjective Subjective: Medicine Progress note. Dr. Kelly Pt seen and examined at bedside. No acute events overnight. No F/C. No CP/SOB. No N/V/D. Tolerating diet. No new complaints Objective - Vital Signs/Intake and Output Vital Signs (last 24 hours): Temp Pulse Resp BP Pulse Ox 99.5 F 77 19 126/81 96 11/25/16 08:00 11/25/16 09:31 11/25/16 08:00 11/25/16 09:31 11/25/16 08:00 Intake and Output: 11/25/16 11/25/16 06:59 18:59 Intake Total 0 Output Total 700 Balance -700 - Medications Medications: Current Medications Acetaminophen (Tylenol 325mg Tab) 650 mg PO Q4 PRN PRN Reason: Pain, Mild (1-3) Acetaminophen (Tylenol 325mg Tab) 650 mg PO Q4 PRN PRN Reason: Fever >100.4 F Amlodipine Besylate (Norvasc) 10 mg PO DAILY [facility] Last Admin: 11/25/16 09:30 Dose: 10 mg Duloxetine HCl (Cymbalta) 30 mg PO DAILY [facility] Last Admin: 11/25/16 09:32 Dose: 30 mg Enoxaparin Sodium (Lovenox) 40 mg SC DAILY [facility] PRN Reason: Protocol Last Admin: 11/25/16 09:29 Dose: 40 mg Folic Acid (Folic Acid) 1 mg PO DAILY [facility] Last Admin: 11/25/16 09:32 Dose: 1 mg Gabapentin (Neurontin) 300 mg PO TID [facility] PRN Reason: Protocol Last Admin: 11/25/16 09:29 Dose: 300 mg Cefazolin Sodium 2 gm/ Sodium (Chloride) 100 mls @ 200 mls/hr IVPB Q8 [facility] PRN Reason: Protocol Insulin Human Regular (Humulin R Med) 0 units SC ACHS [facility] PRN Reason: Protocol Last Admin: 11/25/16 12:10 Dose: 1 units Lisinopril (Zestril) 10 mg PO DAILY [facility] Last Admin: 11/25/16 09:31 Dose: 10 mg Lorazepam (Ativan) 1 mg IVP Q6H PRN; Protocol PRN Reason: Symptoms of alcohol withdrawl Last Admin: 11/21/16 11:22 Dose: 1 mg Metformin HCl (Glucophage) 500 mg PO BID [facility] Last Admin: 11/25/16 09:33 Dose: 500 mg Multivitamins/Minerals (Therapeutic-M Tab) 1 tab PO DAILY [facility] Last Admin: 11/25/16 09:30 Dose: 1 tab Oxychlorosene Sodium (Clorpactin Wcs-90) 2 gm TOP DAILY [facility] Last Admin: 11/25/16 09:29 Dose: 2 gm Pantoprazole Sodium (Protonix Ec Tab) 40 mg PO 0630 [facility] Last Admin: 11/25/16 05:31 Dose: 40 mg Thiamine HCl (Vitamin B1 Tab) 100 mg PO DAILY [facility] Last Admin: 11/25/16 09:31 Dose: 100 mg - Labs Labs: 11/25/16 06:10 11/25/16 06:10 - Constitutional Appears: Well, No Acute Distress - Head Exam Head Exam: ATRAUMATIC, NORMAL INSPECTION, NORMOCEPHALIC - Eye Exam Eye Exam: EOMI, Normal appearance. absent: Scleral icterus Pupil Exam: PERRL - ENT Exam ENT Exam: Mucous Membranes Moist - Neck Exam Neck Exam: Full ROM - Respiratory Exam Respiratory Exam: Clear to Ausculation Bilateral. absent: Rales, Rhonchi, Wheezes - Cardiovascular Exam Cardiovascular Exam: REGULAR RHYTHM, RRR, +S1, +S2. absent: JVD - GI/Abdominal Exam GI & Abdominal Exam: Soft. absent: Distended, Firm, Guarding, Tenderness - Extremities Exam Extremities Exam: Normal Inspection. absent: Calf Tenderness, Pedal Edema Additional comments: Left foot ulcer. Dressing clean dry and intact - Neurological Exam Neurological Exam: Alert, Awake, Oriented x3 - Psychiatric Exam Psychiatric exam: Normal Affect, Normal Mood - Skin Skin Exam: Dry, Normal Color, Warm Assessment and Plan - Assessment and Plan (Free Text) Assessment: 46 year old male with past medical history of hypertension, diabetes, diabetic foot ulcer presents with left foot pain and alcohol intoxication 1. Left Diabetic foot ulcer, hx of osteomyelitis -WBC nml, afebrile -Vancomycin and zosyn per ID. Patient will need abx for 4-6 weeks -Left foot x-ray showed bony irregularity on 5th metatarsal bone -Podiatry recs appreciated -Wound Cx: + proteus mirabilis, gram - barron. Urine Cx + E.coli -Tylenol for mild pain -Patient awaiting [facility] placement. Hx of drug abuse, not eligible to go home w/ PICC Line. 2. Alcohol intoxication -[facility] protocol -No tremors appreciated -Cessation was advised -multivitamin -Ativan 1mg prn -Thiamine, folic acid 3. Depression -Psychiatry consult, recs appreciated -Neurontin, Cymbalta 4. Hx of DM -A1c: 8.6 -ISS -FS ACHS - metformin 5. Hx of HTN - lisinopril, Norvasc 6. Cocaine and tobacco abuse -Cessation was advised -nicotine patch 7. PPx -protonix for GI ppx -lovenox for DVT ppx Dispo: Awaiting possible [facility] placement Discussed case with Dr. Robin Meek PGY1 <Robin SIN,Ck - Last Filed: 11/25/16 14:48> Objective - Vital Signs/Intake and Output Vital Signs (last 24 hours): Temp Pulse Resp BP Pulse Ox 99.5 F 77 19 126/81 96 11/25/16 08:00 11/25/16 09:31 11/25/16 08:00 11/25/16 09:31 11/25/16 08:00 Intake and Output: 11/25/16 11/25/16 06:59 18:59 Intake Total 0 Output Total 700 Balance -700 - Medications Medications: Current Medications Acetaminophen (Tylenol 325mg Tab) 650 mg PO Q4 PRN PRN Reason: Pain, Mild (1-3) Acetaminophen (Tylenol 325mg Tab) 650 mg PO Q4 PRN PRN Reason: Fever >100.4 F Amlodipine Besylate (Norvasc) 10 mg PO DAILY [facility] Last Admin: 11/25/16 09:30 Dose: 10 mg Duloxetine HCl (Cymbalta) 30 mg PO DAILY [facility] Last Admin: 11/25/16 09:32 Dose: 30 mg Enoxaparin Sodium (Lovenox) 40 mg SC DAILY [facility] PRN Reason: Protocol Last Admin: 11/25/16 09:29 Dose: 40 mg Folic Acid (Folic Acid) 1 mg PO DAILY [facility] Last Admin: 11/25/16 09:32 Dose: 1 mg Gabapentin (Neurontin) 300 mg PO TID [facility] PRN Reason: Protocol Last Admin: 11/25/16 09:29 Dose: 300 mg Cefazolin Sodium 2 gm/ Sodium (Chloride) 100 mls @ 200 mls/hr IVPB Q8 [facility] PRN Reason: Protocol Insulin Human Regular (Humulin R Med) 0 units SC ACHS [facility] PRN Reason: Protocol Last Admin: 11/25/16 12:10 Dose: 1 units Lisinopril (Zestril) 10 mg PO DAILY [facility] Last Admin: 11/25/16 09:31 Dose: 10 mg Lorazepam (Ativan) 1 mg IVP Q6H PRN; Protocol PRN Reason: Symptoms of alcohol withdrawl Last Admin: 11/21/16 11:22 Dose: 1 mg Metformin HCl (Glucophage) 500 mg PO BID [facility] Last Admin: 11/25/16 09:33 Dose: 500 mg Multivitamins/Minerals (Therapeutic-M Tab) 1 tab PO DAILY [facility] Last Admin: 11/25/16 09:30 Dose: 1 tab Oxychlorosene Sodium (Clorpactin Wcs-90) 2 gm TOP DAILY [facility] Last Admin: 11/25/16 09:29 Dose: 2 gm Pantoprazole Sodium (Protonix Ec Tab) 40 mg PO 0630 [facility] Last Admin: 11/25/16 05:31 Dose: 40 mg Thiamine HCl (Vitamin B1 Tab) 100 mg PO DAILY [facility] Last Admin: 11/25/16 09:31 Dose: 100 mg - Labs Labs: 11/25/16 06:10 11/25/16 06:10 Attending/Attestation - Attestation I have personally seen and examined this patient.: Yes I have fully participated in the care of the patient.: Yes I have reviewed all pertinent clinical information, including history, physical exam and plan: Yes Notes (Text): 11/25/16 14:45 Patient was seen and examined with medical auditor .Agreed with resident assessment and plan. 46 year old male with past medical history of hypertension, diabetes, diabetic foot ulcer presents with left foot pain and alcohol intoxication.Left foot ulcers are likely chronic osteomylitis, need 6 weeks of antibiotics as per ID.Patient has history of IV drug abuse .Wound cultures are growing Proteus mirabilis.He has PICC line placed in and is awaiting Placement, cannot be discharged home.Case management is working on disposition.Patient will need weekly CBC,CMP,CRP ,vancomycin trough level while on antibiotics. Management plan was discussed in detail with patient Education was provided.
[2016-11-25] MEDS: ceFAZolin 2 GM in Sodium Chloride 0.9% 100 ML IVPB SCH ×2 (14:47→21:47)
[2016-11-26] MEDS: ceFAZolin 2 GM in Sodium Chloride 0.9% 100 ML IVPB SCH ×2 (05:20→14:05)
[2016-11-26] MEDS: Pantoprazole 40 mg EC Tab PO SCH (06:19)
[2016-11-26 07:24] LABS: ADD MANUAL DIFF? NO
[2016-11-26 07:30] LABS: BASO # 0.05 K/mm3 (0.0-2.0); BASO % 0.6 % (0.0-3.0); EOS # 0.2 (0.0-0.7); EOS % 2.3 % (1.5-5.0); GRAN # 5.49 (1.4-6.5); HEMATOCRIT 32.8 % (42.0-52.0); LYMPH # 1.7 (1.2-3.4); LYMPH % 20.3 % (22.0-35.0); MEAN CORPUSCULAR HEMOGLOBIN 28.3 pg (25.0-35.0); MEAN CORPUSCULAR HGB CONC 34.5 g/dl (31.0-37.0); MEAN PLATELET VOLUME 9.5 fl (7.0-11.0); MONO % 11.8 % (1.0-6.0); PLATELET COUNT 247 10^3/uL (120.0-450.0); RED CELL DISTRIBUTION WIDTH 13.4 % (11.5-14.5); WHITE BLOOD COUNT 8.4 10^3/ul (4.5-11.0)
[2016-11-26 07:52] LABS: ALB/GLOB RATIO 1.2 (1.1-1.8); ALKALINE PHOSPHATASE 86 U/L (38-133); ALT/SGPT 66 U/L (7-56); AST/SGOT 53 U/L (15-59); BILIRUBIN,TOTAL 0.5 mg/dL (0.2-1.3); BLOOD UREA NITROGEN 9 mg/dL (7-21); CALCIUM 9.2 mg/dL (8.4-10.5); CARBON DIOXIDE 28 mmol/L (21-33); CHLORIDE 106 mmol/L (98-107); GFR AFRICAN-AMERICAN > 60; GLUCOSE,RANDOM 163 mg/dL (70-110); POTASSIUM 3.9 mmol/L (3.6-5.0); SODIUM 141 mmol/L (132-148); TOTAL PROTEIN 6.9 g/dL (5.8-8.3)
[2016-11-26] MEDS: Insulin Reg-MEDIUM-Coverage SC SCH ×4 (08:15→16:55)
[2016-11-26 09:25] VITALS: O2SAT 98
[2016-11-26] MEDS: Oxychlorosene Topical 2 gm Packet TOP SCH (10:19)
[2016-11-26] MEDS: Multivitamin With Minerals Tab PO SCH (10:20)
[2016-11-26] MEDS: Enoxaparin 40 mg Syringe SC SCH (10:22)
--- NOTE | 2016-11-26 15:07 | CP.PCM.DIS ---
<Travis Poole - Last Filed: 12/04/16 06:34> Provider - Provider Date of Admission: 11/20/16 20:14 Attending physician: Crow Pastor MD Primary care physician: NO PRIMARY CARE PROVIDER Time Spent in preparation of Discharge (in minutes): 35 Hospital Course - Lab Results Lab Results: Micro Results 11/21/16 17:00 Foot - Left Gram Stain - Final 11/21/16 17:00 Foot - Left Wound Culture - Final Proteus Mirabilis 11/21/16 01:30 Foot - Left Gram Stain - Final 11/21/16 01:30 Foot - Left Wound Culture - Final Proteus Mirabilis Beta Hemolytic Strep Group B Most Recent Lab Values WBC 8.4 10^3/ul (4.5-11.0) 11/26/16 05:00 RBC 4.00 10^6/uL (3.5-6.1) 11/26/16 05:00 Hgb 11.3 gm/dL (14.0-18.0) L 11/26/16 05:00 Hct 32.8 % (42.0-52.0) L 11/26/16 05:00 MCV 82.0 fL (80.0-105.0) 11/26/16 05:00 MCH 28.3 pg (25.0-35.0) 11/26/16 05:00 MCHC 34.5 g/dl (31.0-37.0) 11/26/16 05:00 RDW 13.4 % (11.5-14.5) 11/26/16 05:00 Plt Count 247 10^3/uL (120.0-450.0) 11/26/16 05:00 MPV 9.5 fl (7.0-11.0) 11/26/16 05:00 Gran % 65.0 % (50.0-68.0) 11/26/16 05:00 Lymph % (Auto) 20.3 % (22.0-35.0) L 11/26/16 05:00 [place] % (Auto) 11.8 % (1.0-6.0) H 11/26/16 05:00 Eos % (Auto) 2.3 % (1.5-5.0) 11/26/16 05:00 Baso % (Auto) 0.6 % (0.0-3.0) 11/26/16 05:00 Gran # 5.49 (1.4-6.5) 11/26/16 05:00 Lymph # 1.7 (1.2-3.4) 11/26/16 05:00 [place] # 1.0 (0.1-0.6) H 11/26/16 05:00 Eos # 0.2 (0.0-0.7) 11/26/16 05:00 Baso # 0.05 K/mm3 (0.0-2.0) 11/26/16 05:00 Sodium 141 mmol/L (132-148) 11/26/16 05:00 Potassium 3.9 mmol/L (3.6-5.0) 11/26/16 05:00 Chloride 106 mmol/L (98-107) 11/26/16 05:00 Carbon Dioxide 28 mmol/L (21-33) 11/26/16 05:00 Anion Gap 11 (10-20) 11/26/16 05:00 BUN 9 mg/dL (7-21) 11/26/16 05:00 Creatinine 0.9 mg/dL (0.5-1.4) 11/26/16 05:00 Est GFR ( Amer) > 60 11/26/16 05:00 Est GFR (Non-Af Amer) > 60 11/26/16 05:00 POC Glucose (mg/dL) 189 mg/dL (65-110) H 11/26/16 11:29 Random Glucose 163 mg/dL (70-110) H 11/26/16 05:00 Hemoglobin A1c 8.6 % (4.2-6.5) H 11/21/16 07:00 Calcium 9.2 mg/dL (8.4-10.5) 11/26/16 05:00 Phosphorus 2.7 mg/dL (2.5-4.5) 11/22/16 07:00 Magnesium 1.7 mg/dL (1.7-2.2) 11/22/16 07:00 Total Bilirubin 0.5 mg/dL (0.2-1.3) 11/26/16 05:00 AST 53 U/L (15-59) 11/26/16 05:00 ALT 66 U/L (7-56) H 11/26/16 05:00 Alkaline Phosphatase 86 U/L (38-133) 11/26/16 05:00 Lactate Dehydrogenase 479 U/L (333-699) 11/20/16 15:21 Total Creatine Kinase 183 U/L (35-230) 11/20/16 15:21 Troponin I 0.02 ng/mL 11/20/16 15:21 Total Protein 6.9 g/dL (5.8-8.3) 11/26/16 05:00 Albumin 3.7 g/dL (3.0-4.8) 11/26/16 05:00 Globulin 3.2 gm/dL 11/26/16 05:00 Albumin/Globulin Ratio 1.2 (1.1-1.8) 11/26/16 05:00 Lipase 42 U/L (23-300) 11/20/16 15:21 Procalcitonin < 0.05 NG/ML (0.19-0.49) L 11/21/16 08:00 Urine Color Yellow (YELLOW) 11/21/16 17:21 Urine Appearance Clear (CLEAR) 11/21/16 17:21 Urine pH 6.0 (4.7-8.0) 11/21/16 17:21 Ur Specific [place] 1.020 (1.005-1.035) 11/21/16 17:21 Urine Protein Negative mg/dL (<30 mg/dL) 11/21/16 17:21 Urine Glucose (UA) 100 mg/dL (NEGATIVE) H 11/21/16 17:21 Urine Ketones Negative mg/dL (NEGATIVE) 11/21/16 17:21 Urine Blood Trace-lysed (NEGATIVE) H 11/21/16 17:21 Urine Nitrate Negative (NEGATIVE) 11/21/16 17:21 Urine Bilirubin Negative (NEGATIVE) 11/21/16 17:21 Urine Urobilinogen 0.2 E.U./dL (<1 E.U./dL) 11/21/16 17:21 Ur Leukocyte Esterase Trace Cesario/uL (NEGATIVE) H 11/21/16 17:21 Urine RBC 2 - 5 /hpf (0-2) 11/21/16 17:21 Urine WBC 10 - 15 /hpf (0-6) 11/21/16 17:21 Ur Epithelial Cells 0 - 2 /hpf (0-5) 11/21/16 17:21 Urine Bacteria Small (NEG) 11/21/16 17:21 Salicylates < 1 mg/dL (2.0-20.0) L 11/20/16 15:21 Urine Opiates Screen Negative (NEGATIVE) 11/20/16 16:07 Urine Methadone Screen Negative (NEGATIVE) 11/20/16 16:07 Acetaminophen < 10.0 ug/ml (10.0-20.0) L 11/20/16 15:21 Ur Barbiturates Screen Negative (NEGATIVE) 11/20/16 16:07 Ur Phencyclidine Scrn Negative (NEGATIVE) 11/20/16 16:07 Ur Amphetamines Screen Negative (NEGATIVE) 11/20/16 16:07 U Benzodiazepines Scrn Negative (NEGATIVE) 11/20/16 16:07 U Oth Cocaine Metabols Positive (NEGATIVE) H 11/20/16 16:07 U Cannabinoids Screen Negative (NEGATIVE) 11/20/16 16:07 Alcohol, Quantitative 179 mg/dL (0-10) H 11/20/16 15:21 C.trachomatis RNA (TMA) Not detected (Not Detected) 11/21/16 14:30 N.gonorrhoeae RNA (TMA) Not detected (Not Detected) 11/21/16 14:30 - Hospital Course Hospital Course: 11/21: 46M with PMHx of HTN, DM, diabetic foot ulcer, left foot osteomyelitis presents to [facility] ED complaining of left foot pain and feeling depressed. Patient was hospitalized and discharged from [facility] in August 2016 for infect diabetic foot ulcer and a mechanical fall. Patient was instructed to follow up with Dr. Azul at the wound clinic routinely after hospital discharge but he only was able to go once. Patient is also not compliant with his medications. Patient states he came to the hospital today hoping to get admitted to the alcohol detox unit. Patient reports he drinks 3 days out of a week. He usually drinks 6 to 7 large size beer cans each time. His last drink was 9am this morning. Patient also reports of cocaine use, last use was 3 days ago. Patient admits to have thoughts of suicide but does not have a concrete plans nor attempts in the past. Patient states I am just so fed up with life right now. He denies having auditory or visual hallucinations, headache, fever, chills, shortness of breath, chest pain, abdominal pain, nausea, vomiting, diarrhea, or urinary complaints. 11/22: Patient was seen by podiatry. Patient's left foot wound was flushed and packed with iodoform. Podiatry and infectious disease recommended 4-6 weeks of IV abx per PICC. Line was placed Dr. Joy. Wound cultures were positive for proteus and Group B Strep. Patient placed on vanc and zosyn for chronic osteomyelitis. 11/23: Patient will need six weeks of antibiotics as per ID and podiatry recs. Patient will need six weeks of antibiotics and will be placed in subacute rehab. 11/24: Patinent to go to [facility]. Discharge Exam - Head Exam Head Exam: ATRAUMATIC, NORMAL INSPECTION, NORMOCEPHALIC - Eye Exam Eye Exam: Normal appearance - ENT Exam ENT Exam: Mucous Membranes Moist - Respiratory Exam Respiratory Exam: NORMAL BREATHING PATTERN - Cardiovascular Exam Cardiovascular Exam: +S1, +S2 - GI/Abdominal Exam GI & Abdominal Exam: Soft - Extremities Exam Additional comments: chronic osteomyelitis - Neurological Exam Neurological exam: Alert, Oriented x3 - Psychiatric Exam Psychiatric exam: Normal Mood - Skin Skin Exam: Dry, Warm Discharge Plan - Discharge Medications Prescriptions: Piperacill/Tazo 3.375gm in Dex [Zosyn 3.375 Gm IV] 3.375 gm IVPB Q6H #120 bag Vancomycin/0.9 % Sod Chloride [Vancomycin 1 G/100Ml-0.9% NaCl] 1 gm IV BID #60 plast..bag - Follow Up Plan Condition: FAIR Disposition: TRANSF TO SNF Instructions: Osteomyelitis (DC), Cigarette Smoking and Your Health (GEN), Diabetes Mellitus Type 1 in Adults (DC), Peripherally Inserted Central Catheters and Midline Catheters (DC), Basic Carbohydrate Counting (DC), Meal Planning with Diabetes Exchanges (DC), Diabetic Neuropathy (GEN), Diabetic Foot Ulcers (DC), Alcohol Use Disorder (GEN) Additional Instructions: Weekly ESR, CRP, CBC, CMP levels Referrals: Emani Azul DPM [Staff Provider] - Orlando Lim MD [Staff Provider] - <Crow Pastor - Last Filed: 12/04/16 22:18> Provider - Provider Date of Admission: 11/20/16 20:14 Attending physician: Crow Pastor MD Primary care physician: NO PRIMARY CARE PROVIDER Hospital Course - Lab Results Lab Results: Micro Results 11/21/16 17:00 Foot - Left Gram Stain - Final 11/21/16 17:00 Foot - Left Wound Culture - Final Proteus Mirabilis 11/21/16 01:30 Foot - Left Gram Stain - Final 11/21/16 01:30 Foot - Left Wound Culture - Final Proteus Mirabilis Beta Hemolytic Strep Group B Most Recent Lab Values WBC 8.4 10^3/ul (4.5-11.0) 11/26/16 05:00 RBC 4.00 10^6/uL (3.5-6.1) 11/26/16 05:00 Hgb 11.3 gm/dL (14.0-18.0) L 11/26/16 05:00 Hct 32.8 % (42.0-52.0) L 11/26/16 05:00 MCV 82.0 fL (80.0-105.0) 11/26/16 05:00 MCH 28.3 pg (25.0-35.0) 11/26/16 05:00 MCHC 34.5 g/dl (31.0-37.0) 11/26/16 05:00 RDW 13.4 % (11.5-14.5) 11/26/16 05:00 Plt Count 247 10^3/uL (120.0-450.0) 11/26/16 05:00 MPV 9.5 fl (7.0-11.0) 11/26/16 05:00 Gran % 65.0 % (50.0-68.0) 11/26/16 05:00 Lymph % (Auto) 20.3 % (22.0-35.0) L 11/26/16 05:00 [place] % (Auto) 11.8 % (1.0-6.0) H 11/26/16 05:00 Eos % (Auto) 2.3 % (1.5-5.0) 11/26/16 05:00 Baso % (Auto) 0.6 % (0.0-3.0) 11/26/16 05:00 Gran # 5.49 (1.4-6.5) 11/26/16 05:00 Lymph # 1.7 (1.2-3.4) 11/26/16 05:00 [place] # 1.0 (0.1-0.6) H 11/26/16 05:00 Eos # 0.2 (0.0-0.7) 11/26/16 05:00 Baso # 0.05 K/mm3 (0.0-2.0) 11/26/16 05:00 Sodium 141 mmol/L (132-148) 11/26/16 05:00 Potassium 3.9 mmol/L (3.6-5.0) 11/26/16 05:00 Chloride 106 mmol/L (98-107) 11/26/16 05:00 Carbon Dioxide 28 mmol/L (21-33) 11/26/16 05:00 Anion Gap 11 (10-20) 11/26/16 05:00 BUN 9 mg/dL (7-21) 11/26/16 05:00 Creatinine 0.9 mg/dL (0.5-1.4) 11/26/16 05:00 Est GFR ( Amer) > 60 11/26/16 05:00 Est GFR (Non-Af Amer) > 60 11/26/16 05:00 POC Glucose (mg/dL) 163 mg/dL (65-110) H 11/26/16 16:20 Random Glucose 163 mg/dL (70-110) H 11/26/16 05:00 Hemoglobin A1c 8.6 % (4.2-6.5) H 11/21/16 07:00 Calcium 9.2 mg/dL (8.4-10.5) 11/26/16 05:00 Phosphorus 2.7 mg/dL (2.5-4.5) 11/22/16 07:00 Magnesium 1.7 mg/dL (1.7-2.2) 11/22/16 07:00 Total Bilirubin 0.5 mg/dL (0.2-1.3) 11/26/16 05:00 AST 53 U/L (15-59) 11/26/16 05:00 ALT 66 U/L (7-56) H 11/26/16 05:00 Alkaline Phosphatase 86 U/L (38-133) 11/26/16 05:00 Lactate Dehydrogenase 479 U/L (333-699) 11/20/16 15:21 Total Creatine Kinase 183 U/L (35-230) 11/20/16 15:21 Troponin I 0.02 ng/mL 11/20/16 15:21 Total Protein 6.9 g/dL (5.8-8.3) 11/26/16 05:00 Albumin 3.7 g/dL (3.0-4.8) 11/26/16 05:00 Globulin 3.2 gm/dL 11/26/16 05:00 Albumin/Globulin Ratio 1.2 (1.1-1.8) 11/26/16 05:00 Lipase 42 U/L (23-300) 11/20/16 15:21 Procalcitonin < 0.05 NG/ML (0.19-0.49) L 11/21/16 08:00 Urine Color Yellow (YELLOW) 11/21/16 17:21 Urine Appearance Clear (CLEAR) 11/21/16 17:21 Urine pH 6.0 (4.7-8.0) 11/21/16 17:21 Ur Specific [place] 1.020 (1.005-1.035) 11/21/16 17:21 Urine Protein Negative mg/dL (<30 mg/dL) 11/21/16 17:21 Urine Glucose (UA) 100 mg/dL (NEGATIVE) H 11/21/16 17:21 Urine Ketones Negative mg/dL (NEGATIVE) 11/21/16 17:21 Urine Blood Trace-lysed (NEGATIVE) H 11/21/16 17:21 Urine Nitrate Negative (NEGATIVE) 11/21/16 17:21 Urine Bilirubin Negative (NEGATIVE) 11/21/16 17:21 Urine Urobilinogen 0.2 E.U./dL (<1 E.U./dL) 11/21/16 17:21 Ur Leukocyte Esterase Trace Cesario/uL (NEGATIVE) H 11/21/16 17:21 Urine RBC 2 - 5 /hpf (0-2) 11/21/16 17:21 Urine WBC 10 - 15 /hpf (0-6) 11/21/16 17:21 Ur Epithelial Cells 0 - 2 /hpf (0-5) 11/21/16 17:21 Urine Bacteria Small (NEG) 11/21/16 17:21 Salicylates < 1 mg/dL (2.0-20.0) L 11/20/16 15:21 Urine Opiates Screen Negative (NEGATIVE) 11/20/16 16:07 Urine Methadone Screen Negative (NEGATIVE) 11/20/16 16:07 Acetaminophen < 10.0 ug/ml (10.0-20.0) L 11/20/16 15:21 Ur Barbiturates Screen Negative (NEGATIVE) 11/20/16 16:07 Ur Phencyclidine Scrn Negative (NEGATIVE) 11/20/16 16:07 Ur Amphetamines Screen Negative (NEGATIVE) 11/20/16 16:07 U Benzodiazepines Scrn Negative (NEGATIVE) 11/20/16 16:07 U Oth Cocaine Metabols Positive (NEGATIVE) H 11/20/16 16:07 U Cannabinoids Screen Negative (NEGATIVE) 11/20/16 16:07 Alcohol, Quantitative 179 mg/dL (0-10) H 11/20/16 15:21 C.trachomatis RNA (TMA) Not detected (Not Detected) 11/21/16 14:30 N.gonorrhoeae RNA (TMA) Not detected (Not Detected) 11/21/16 14:30 Attending/Attestation - Attestation I have personally seen and examined this patient.: Yes I have fully participated in the care of the patient.: Yes I have reviewed all pertinent clinical information, including history, physical exam and plan: Yes Notes (Text): 12/04/16 22:14 46 year old male with past medical history of hypertension, diabetes and diabetic foot ulcer who presented with left foot pain. He was started on iv antibiotics for chronic osteomyelitis. He was seen by ID and podiatry. Picc line was placed and patient is discharged to [facility] to complete iv antbiotics with weekly labs as above. Crow Pastor MD Hospitalist.
--- NOTE | 2016-11-26 17:35 | CP.PCM.PN ---
<Gretchen Garcia - Last Filed: 11/26/16 17:32> Subjective - Date & Time of Evaluation Date of Evaluation: 11/26/16 Time of Evaluation: 17:00 - Subjective Subjective: 46 y/o diabetic male patient seen at bedside with Dr. Azul for follow-up of left forefoot ulceration. Pt seen resting comfortably at bedside at time of visit. Appears to be in NAD. Denies f/n/v/c/sob/cp at this time. Says that he may me going to the subacute rehab today for his IV antibiotics. Denies any other pedal complaints at this time. Objective - Vital Signs/Intake and Output Vital Signs (last 24 hours): Temp Pulse Resp BP Pulse Ox 97.9 F 72 19 126/80 98 11/26/16 07:30 11/26/16 10:21 11/26/16 07:30 11/26/16 10:21 11/26/16 07:30 Intake and Output: 11/26/16 11/26/16 06:59 18:59 Intake Total 780 780 Output Total 400 4 Balance 380 776 - Medications Medications: Current Medications Acetaminophen (Tylenol 325mg Tab) 650 mg PO Q4 PRN PRN Reason: Pain, Mild (1-3) Last Admin: 11/25/16 21:46 Dose: 650 mg Acetaminophen (Tylenol 325mg Tab) 650 mg PO Q4 PRN PRN Reason: Fever >100.4 F Amlodipine Besylate (Norvasc) 10 mg PO DAILY [facility] Last Admin: 11/26/16 10:21 Dose: 10 mg Duloxetine HCl (Cymbalta) 30 mg PO DAILY [facility] Last Admin: 11/26/16 10:19 Dose: 30 mg Enoxaparin Sodium (Lovenox) 40 mg SC DAILY [facility] PRN Reason: Protocol Last Admin: 11/26/16 10:22 Dose: 40 mg Folic Acid (Folic Acid) 1 mg PO DAILY [facility] Last Admin: 11/26/16 10:22 Dose: 1 mg Gabapentin (Neurontin) 300 mg PO TID [facility] PRN Reason: Protocol Last Admin: 11/26/16 14:15 Dose: 300 mg Cefazolin Sodium 2 gm/ Sodium (Chloride) 100 mls @ 200 mls/hr IVPB Q8 [facility] PRN Reason: Protocol Last Admin: 11/26/16 05:20 Dose: 200 mls/hr Insulin Human Regular (Humulin R Med) 0 units SC ACHS [facility] PRN Reason: Protocol Last Admin: 11/26/16 12:23 Dose: 1 units Lisinopril (Zestril) 10 mg PO DAILY [facility] Last Admin: 11/26/16 10:21 Dose: 10 mg Lorazepam (Ativan) 1 mg IVP Q6H PRN; Protocol PRN Reason: Symptoms of alcohol withdrawl Last Admin: 11/21/16 11:22 Dose: 1 mg Metformin HCl (Glucophage) 500 mg PO BID [facility] Last Admin: 11/26/16 10:20 Dose: 500 mg Multivitamins/Minerals (Therapeutic-M Tab) 1 tab PO DAILY [facility] Last Admin: 11/26/16 10:20 Dose: 1 tab Oxychlorosene Sodium (Clorpactin Wcs-90) 2 gm TOP DAILY [facility] Last Admin: 11/26/16 10:19 Dose: 2 gm Pantoprazole Sodium (Protonix Ec Tab) 40 mg PO 0630 [facility] Last Admin: 11/26/16 06:19 Dose: 40 mg Thiamine HCl (Vitamin B1 Tab) 100 mg PO DAILY [facility] Last Admin: 11/26/16 10:20 Dose: 100 mg - Labs Labs: 11/26/16 05:00 11/26/16 05:00 - Constitutional Appears: Well, Non-toxic, No Acute Distress - Extremities Exam Additional comments: left foot focused: Dressing appears c/d/i to the left foot. Dressing note changed as nurse just changed dressing. - Neurological Exam Neurological Exam: Alert, Awake, Oriented x3 - Psychiatric Exam Psychiatric exam: Normal Affect, Normal Mood Assessment and Plan - Assessment and Plan (Free Text) Assessment: 46 yo patient with left foot ulceration with likely OM of left 5th metatarsal Plan: -Pt S&E at bedside with attending Dr. Azul -Chart, labs and vitals reviewed -Pt is for discharge to [facility] for 6 weeks IV abx (abx per ID) -Dressings is to be changed once daily, flush wound w/ saline, 1/4 inch iodoform packing, DSD -Pt is to wear surgical shoe at all times with weight-bearing -Dr. Alvarado to follow patient while in [facility] -Stable per podiatry <Emani Azul - Last Filed: 12/09/16 16:41> Objective - Vital Signs/Intake and Output Vital Signs (last 24 hours): Temp Pulse Resp BP Pulse Ox 98.2 F 75 20 132/92 H 98 11/26/16 16:00 11/26/16 16:00 11/26/16 16:00 11/26/16 16:00 11/26/16 16:00 - Labs Labs: 11/26/16 05:00 11/26/16 05:00 Attending/Attestation - Attestation I have personally seen and examined this patient.: Yes I have fully participated in the care of the patient.: Yes I have reviewed all pertinent clinical information, including history, physical exam and plan: Yes
--- NOTE | 2016-11-26 19:36 | CP.PCM.PN ---
Subjective - Date & Time of Evaluation Date of Evaluation: 11/26/16 Time of Evaluation: 10:50 - Subjective Subjective: Comfortable in bed, not in distress, afebrile. Objective - Vital Signs/Intake and Output Vital Signs (last 24 hours): Temp Pulse Resp BP Pulse Ox 97.9 F 72 19 126/80 98 11/26/16 07:30 11/26/16 10:21 11/26/16 07:30 11/26/16 10:21 11/26/16 07:30 Intake and Output: 11/26/16 11/27/16 18:59 06:59 Intake Total 780 Output Total 4 Balance 776 - Medications Medications: Current Medications Acetaminophen (Tylenol 325mg Tab) 650 mg PO Q4 PRN PRN Reason: Pain, Mild (1-3) Last Admin: 11/25/16 21:46 Dose: 650 mg Acetaminophen (Tylenol 325mg Tab) 650 mg PO Q4 PRN PRN Reason: Fever >100.4 F Amlodipine Besylate (Norvasc) 10 mg PO DAILY [facility] Last Admin: 11/26/16 10:21 Dose: 10 mg Duloxetine HCl (Cymbalta) 30 mg PO DAILY [facility] Last Admin: 11/26/16 10:19 Dose: 30 mg Enoxaparin Sodium (Lovenox) 40 mg SC DAILY [facility] PRN Reason: Protocol Last Admin: 11/26/16 10:22 Dose: 40 mg Folic Acid (Folic Acid) 1 mg PO DAILY [facility] Last Admin: 11/26/16 10:22 Dose: 1 mg Gabapentin (Neurontin) 300 mg PO TID [facility] PRN Reason: Protocol Last Admin: 11/26/16 18:58 Dose: 300 mg Cefazolin Sodium 2 gm/ Sodium (Chloride) 100 mls @ 200 mls/hr IVPB Q8 [facility] PRN Reason: Protocol Last Admin: 11/26/16 14:05 Dose: 200 mls/hr Insulin Human Regular (Humulin R Med) 0 units SC ACHS [facility] PRN Reason: Protocol Last Admin: 11/26/16 16:55 Dose: 1 units Lisinopril (Zestril) 10 mg PO DAILY [facility] Last Admin: 11/26/16 10:21 Dose: 10 mg Lorazepam (Ativan) 1 mg IVP Q6H PRN; Protocol PRN Reason: Symptoms of alcohol withdrawl Last Admin: 11/21/16 11:22 Dose: 1 mg Metformin HCl (Glucophage) 500 mg PO BID [facility] Last Admin: 11/26/16 18:52 Dose: 500 mg Multivitamins/Minerals (Therapeutic-M Tab) 1 tab PO DAILY [facility] Last Admin: 11/26/16 10:20 Dose: 1 tab Oxychlorosene Sodium (Clorpactin Wcs-90) 2 gm TOP DAILY [facility] Last Admin: 11/26/16 10:19 Dose: 2 gm Pantoprazole Sodium (Protonix Ec Tab) 40 mg PO 0630 [facility] Last Admin: 11/26/16 06:19 Dose: 40 mg Thiamine HCl (Vitamin B1 Tab) 100 mg PO DAILY [facility] Last Admin: 11/26/16 10:20 Dose: 100 mg - Labs Labs: 11/26/16 05:00 11/26/16 05:00 - Constitutional Appears: Non-toxic, No Acute Distress - Head Exam Head Exam: NORMAL INSPECTION - Neck Exam Neck Exam: absent: Lymphadenopathy, Meningismus - Respiratory Exam Respiratory Exam: Decreased Breath Sounds - Cardiovascular Exam Cardiovascular Exam: +S1, +S2 - GI/Abdominal Exam GI & Abdominal Exam: Soft. absent: Tenderness Assessment and Plan - Assessment and Plan (Free Text) Plan: Assessment Consider left foot ulcer infection with probable osteomyelitis of the 5th metatarsal head and phlegmon - as discussed with Dr. Azul, has history of chronic osteomyelitis; growing PRoteus and Group B Strep HTN DM history of osteomyelitis of the left foot last year Plan switched antibiotics to Cefazolin and will need at least 6 weeks of antibiotics with weekly ESR, CRP, CBC, CMP Discussed with Dr. Azul previously
[2016-11-26 20:08] VITALS: BP 132/92; PULSE 75; RESP 20; TEMP 98.2
--- NOTE | 2016-12-06 09:57 | VASCULAR ---
PROCEDURE: Ultrasound and fluoroscopically placed left upper extremity PICC line. HISTORY: Left foot osteomyelitis. Long-term IV antibiotics. Needs PICC line. PHYSICIAN(S): Pablo Joy MD. TECHNIQUE: The relative risks and indications of the procedure were explained to the patient and consent obtained. The patient was placed supine on the arteriogram table and the left arm prepped and draped in the usual sterile fashion. A tourniquet was applied to the left axilla. 1% Xylocaine was used to anesthetize the skin and soft tissues at the puncture site above the elbow. The left basilic vein was punctured under direct ultrasound guidance with a micropuncture set. A 0.018 guidewire was advanced centrally and used to measure the length to the SVC/RA junction. A 5 Maltese single-lumen PICC line 41 cm long was advanced to the SVC/RA junction. The catheter was flushed and secured. The patient tolerated the procedure well. IMPRESSION: 1. Ultrasound and fluoroscopically placed left upper extremity PICC line. A 5 Maltese single-lumen PICC line 41 cm long was advanced to the SVC/RA junction.
== END 2016-11-26 22:15 | DRG 750 ==
LOC: ED 14:05 → ERH 20:14 → 5RSO 11-21 00:01
PROVIDERS: ADMIT Internal Medicine; ATTEND Internal Medicine
PROC: 02HV33Z Insertion of Infusion Device into Superior Vena Cava, Percutaneous Approach (ICD-10-PCS; principal; 2016-11-22)
PROC: B54NZZ3 Ultrasonography of Left Upper Extremity Veins, Intravascular (ICD-10-PCS; 2016-11-22)
PROC: B51NZZA Fluoroscopy of Left Upper Extremity Veins, Guidance (ICD-10-PCS; 2016-11-22)
DX: F10.229 Alcohol dependence with intoxication, unspecified (principal); E11.621 Type 2 diabetes mellitus with foot ulcer; F14.10 Cocaine abuse, uncomplicated; E11.40 Type 2 diabetes mellitus with diabetic neuropathy, unspecified; E11.65 Type 2 diabetes mellitus with hyperglycemia; L02.612 Cutaneous abscess of left foot; L97.529 Non-pressure chronic ulcer of other part of left foot with unspecified severity; B96.4 Proteus (mirabilis) (morganii) as the cause of diseases classified elsewhere; F32.89 Other specified depressive episodes; E11.69 Type 2 diabetes mellitus with other specified complication; D72.829 Elevated white blood cell count, unspecified; E78.00 Pure hypercholesterolemia, unspecified; F41.9 Anxiety disorder, unspecified; I10 Essential (primary) hypertension; R31.9 Hematuria, unspecified; Y90.6 Blood alcohol level of 120-199 mg/100 ml; Z72.0 Tobacco use; Z76.5 Malingerer [conscious simulation]; Z87.01 Personal history of pneumonia (recurrent); Z91.14 Patient's other noncompliance with medication regimen; Z86.59 Personal history of other mental and behavioral disorders; R00.0 Tachycardia, unspecified; R40.2412 Glasgow coma scale score 13-15, at arrival to emergency department; I20.9 Angina pectoris, unspecified; F19.24 Other psychoactive substance dependence with psychoactive substance-induced mood disorder; F06.30 Mood disorder due to known physiological condition, unspecified; M86.672 Other chronic osteomyelitis, left ankle and foot; B95.1 Streptococcus, group B, as the cause of diseases classified elsewhere

== ENCOUNTER 2016-12-27 01:44 | Emergency (ER) | payer MEDICAID ==
[2016-12-27 01:49] VITALS: BMI 22.4
[2016-12-27 02:06] VITALS: BP 143/89; PULSE 96; RESP 16; TEMP 98.1; O2SAT 96
--- NOTE | 2016-12-27 02:13 | ED PDOC ---
Arrival/HPI - General Historian: Patient - History of Present Illness Time/Duration: Prior to Arrival Symptom Course: Unchanged Context: Home - General Time Seen by Provider: 12/27/16 01:47 - History of Present Illness Narrative History of Present Illness (Text): 12/27/16 02:09 46 yo male with PMH of DM, HTN, osteomylitis of left foot presented to ED with tooth pain. Patient states that the pain started yesterday and is located on the right side. He describes the pain as sharp, 8/10 pain. He states he had an ear ache a few days ago but it resolved before the toothache started. He denies any fever, chills, sob, abd pain. Patient currently has picc line in left arm for IV antibiotic for osteomyelitis of of the left foot. PMD: none (Vani Du) Past Medical History - Provider Review Nursing Documentation Reviewed: Yes - Infectious Disease Hx of Infectious Diseases: None - Tetanus Immunization Tetanus Immunization: Unknown - Cardiac Hx Cardiac Disorders: Yes Hx Angina: Yes Hx Hypertension: Yes - Pulmonary Hx Respiratory Disorders: Yes Hx Pneumonia: Yes - Neurological Hx Neurological Disorder: No - HEENT Hx HEENT Disorder: No - Renal Hx Renal Disorder: No - Endocrine/Metabolic Hx Endocrine Disorders: Yes Hx Diabetes Mellitus Type 2: Yes - Hematological/Oncological Hx Blood Disorders: No - Integumentary Hx Dermatological Disorder: No Other/Comment: right foot ulcer mrsa possibly - Musculoskeletal/Rheumatological Hx Musculoskeletal Disorders: Yes Hx Falls: Yes (3 months ago (Aug 2016)) Hx Unsteady Gait: Yes - Gastrointestinal Hx Gastrointestinal Disorders: No - Genitourinary/Gynecological Hx Genitourinary Disorders: No - Psychiatric Hx Psychophysiologic Disorder: Yes Hx Anxiety: Yes Hx Depression: Yes Hx Hallucinations: Yes Hx Substance Use: Yes - Surgical History Other/Comment: "left foot surgery" - Anesthesia Hx Anesthesia: Yes Hx Anesthesia Reactions: No Hx Malignant Hyperthermia: No - Suicidal Assessment Feels Threatened In Home Enviroment: No Family/Social History - Physician Review Nursing Documentation Reviewed: Yes Family/Social History: No Known Family HX Smoking Status: Current Some Days Smoker Hx Alcohol Use: Yes Hx Substance Use: Yes Hx Substance Use Treatment: No Allergies/Home Meds Allergies/Adverse Reactions: Allergies No Known Allergies Allergy (Verified 12/27/16 01:50) Home Medications: Home Meds Medication Instructions Recorded Confirmed DULoxetine [Cymbalta] 60 mg PO DAILY 12/27/16 12/27/16 Folic Acid 1 mg PO DAILY 12/27/16 12/27/16 Insulin Glargine,Hum.rec.anlog 10 unit SQ HS 12/27/16 12/27/16 [Lantus] Megestrol Acetate [Megace] 10 ml PO DAILY 12/27/16 12/27/16 metFORMIN [glucOPHAGE] 1,000 mg PO BID 12/27/16 12/27/16 traMADol [Ultram] 50 mg PO Q6 PRN 12/27/16 12/27/16 Review of Systems - Review of Systems Constitutional: Normal. absent: Fatigue, Fevers Eyes: Normal. absent: Vision Changes ENT: Normal, Other (tooth pain ). absent: Sore Throat, Rhinorrhea, Sinus Congestion Respiratory: Normal. absent: SOB, Cough, Sputum, Wheezing Cardiovascular: Normal. absent: Chest Pain, Palpitations, Edema Gastrointestinal: Normal. absent: Abdominal Pain, Constipation, Diarrhea, Nausea, Vomiting Genitourinary Male: Normal. absent: Dysuria, Frequency, Hematuria Musculoskeletal: Normal. absent: Arthralgias, Back Pain, Myalgias Skin: Normal, Ulcer (left foot). absent: Rash, Laceration Neurological: Normal. absent: Headache, Dizziness Endocrine: Normal. absent: Diaphoresis Hemo/Lymphatic: Normal. absent: Easy Bleeding, Easy Bruising Psychiatric: Normal Physical Exam Finger Stick Blood Glucose: 440 - Systems Exam Head: Present: Atraumatic, Normocephalic Pupils: Present: PERRL. No: Non-Reactive, Pinpoint Extroacular Muscles: Present: EOMI. No: Gaze Palsy, Entrapment Conjunctiva: Present: Normal Ears: Present: Normal, NORMAL TM. No: Erythema Mouth: Present: Moist Mucous Membranes, Normal Tounge, Other (tooth sensitive to percussion ) Pharnyx: Present: Normal. No: ERYTHEMA, EXUDATE, TONSILS ENLARGED Neck: Present: Normal Range of Motion Respiratory/Chest: Present: Clear to Auscultation, Good Air Exchange. No: Respiratory Distress, Accessory Muscle Use, Wheezes, Rales, Rhonchi, Tachypneic Cardiovascular: Present: Regular Rate and Rhythm, Normal S1, S2. No: Murmurs, Tachycardic, Bradycardic Abdomen: Present: Normal Bowel Sounds. No: Tenderness, Distention, Peritoneal Signs Back: Present: Normal Inspection Upper Extremity: Present: Normal Inspection, Other (PICC line left arm). No: Cyanosis, Edema, Tenderness, Swelling Neurological: Present: GCS=15, CN II-XII Intact, Speech Normal Skin: Present: Warm, Dry, Normal Color. No: Rashes Psychiatric: Present: Alert, Oriented x 3, Normal Insight, Normal Concentration Vital Signs Temp Pulse Resp BP Pulse Ox 12/27/16 02:05 98.1 F 96 H 16 143/89 96 Medical Decision Making ED Course and Treatment: Impression: Pt seen and evaluated with medical center manager. Pt, whose past medical history includes diabetes, hypertension, and osteomyelitis, transferred from [facility] for right sided dental pain since yesterday. Aware and agree with HPI, clinical findings, plan, and management. Plan: -- Percocet -- Reassess and disposition (Edinson Ross) 12/27/16 02:17 Impression: 46 yo male with PMH of DM, HTN, osteomylitis of left foot presented to ED with tooth pain. Differential diagnoses includes but not limited to: - dental caries Plan: - tramadol - patient is receiving antibiotic via picc line of osteomyletis. 12/27/16 02:18 - Patient refused tramdol, asked for percocet. - patients blood glucose was 440, will give 6 units insulin 12/27/16 04:14 - Patient is agreeable to be discharged, he is to follow up with dentist in 1-2 days. (Vani Du) - Medication Orders Current Medication Orders: Discontinued Medications Insulin Human Regular (Humulin R) 6 units SC ONCE ONE Stop: 12/27/16 02:32 Last Admin: 12/27/16 02:47 Dose: 6 units Oxycodone/Acetaminophen (Percocet 5/325 Mg Tab) 1 tab PO STAT [facility] Stop: 12/27/16 02:15 Last Admin: 12/27/16 02:20 Dose: 1 tab Disposition/Present on Arrival - Present on Arrival Any Indicators Present on Arrival: Yes History of DVT/PE: No History of Uncontrolled Diabetes: Yes Urinary Catheter: No History of Decub. Ulcer: Yes History Surgical Site Infection Following: None - Disposition Have Diagnosis and Disposition been Completed?: Yes Disposition Time: 03:00 Patient Plan: Discharge - Disposition Diagnosis: Pain, dental Disposition: HOME/ ROUTINE Condition: GOOD Discharge Instructions (ExitCare): Toothache (ED) Additional Instructions: Byron Cárdenas, thank you for letting us take care of you today. Your provider was Dr. Du and Dr. Cabrales. You were treated for dental pain. The emergency medical care you received today was directed at your acute symptoms. If you were prescribed any medication, please fill it and take as directed. It may take several days for your symptoms to resolve. Return to the Emergency Department if your symptoms worsen, do not improve, or if you have any other problems. Please contact your doctor or call one of the physicians/clinics you have been referred to that are listed on the Patient Visit Information form that is included in your discharge packet. Bring any paperwork you were given at discharge with you along with any medications you are taking to your follow up visit. Our treatment cannot replace ongoing medical care by a primary care provider (PCP) outside of the emergency department. Thank you for allowing the [facility] team to be part of your care today. Prescriptions: oxyCODONE/Acetaminophen [Percocet 5/325 mg Tab] 1 ea PO QID #10 tab
[2016-12-27] MEDS ORDERED: Oxycodone/Acetaminophen 5/325 mg Tab PO STA (02:14)
[2016-12-27] MEDS ORDERED: Insulin Regular 1 UNITS/0.01 ML ML SC ONE (02:31)
== END 2016-12-27 03:35 | disposition home or self-care (01) ==
LOC: ED 01:44
DX: K08.89 Other specified disorders of teeth and supporting structures (principal); I10 Essential (primary) hypertension; E11.9 Type 2 diabetes mellitus without complications

== ENCOUNTER 2017-01-11 14:37 | Emergency (ER) | payer MEDICAID ==
[2017-01-11 14:43] VITALS: BMI 23.1
[2017-01-11] MEDS ORDERED: Sodium Chloride 0.9% 1,000 ML IV STA ×2 (14:55→15:24)
--- NOTE | 2017-01-11 15:20 | ED PDOC ---
Arrival/HPI - General Chief Complaint: High Blood Sugar Time Seen by Provider: 01/11/17 14:53 - History of Present Illness Narrative History of Present Illness (Text): 01/11/17 15:19 Patient reports that he was discharged from [facility] days ago and has not had his insulin since then. He reports that he went to his PMD today and PMD sent him to emergency department as FS was >600. He reports some lightheadedness Past Medical History - Infectious Disease Hx of Infectious Diseases: None - Tetanus Immunization Tetanus Immunization: Unknown - Cardiac Hx Cardiac Disorders: Yes Hx Angina: Yes Hx Hypertension: Yes - Pulmonary Hx Respiratory Disorders: Yes Hx Pneumonia: Yes - Neurological Hx Neurological Disorder: No - HEENT Hx HEENT Disorder: No - Renal Hx Renal Disorder: No - Endocrine/Metabolic Hx Endocrine Disorders: Yes Hx Diabetes Mellitus Type 2: Yes - Hematological/Oncological Hx Blood Disorders: No - Integumentary Hx Dermatological Disorder: No Other/Comment: right foot ulcer mrsa possibly - Musculoskeletal/Rheumatological Hx Musculoskeletal Disorders: Yes Hx Falls: Yes (3 months ago (Aug 2016)) Hx Unsteady Gait: Yes - Gastrointestinal Hx Gastrointestinal Disorders: No - Genitourinary/Gynecological Hx Genitourinary Disorders: No - Psychiatric Hx Psychophysiologic Disorder: Yes Hx Anxiety: Yes Hx Depression: Yes Hx Hallucinations: Yes Hx Substance Use: Yes - Surgical History Other/Comment: "left foot surgery" - Anesthesia Hx Anesthesia: Yes Hx Anesthesia Reactions: No Hx Malignant Hyperthermia: No - Suicidal Assessment Feels Threatened In Home Enviroment: No Family/Social History Family/Social History: No Known Family HX Smoking Status: Current Some Days Smoker Hx Alcohol Use: Yes Hx Substance Use: Yes Hx Substance Use Treatment: No Allergies/Home Meds Allergies/Adverse Reactions: Allergies No Known Allergies Allergy (Verified 12/27/16 01:50) Home Medications: Home Meds Medication Instructions Recorded Confirmed DULoxetine [Cymbalta] 60 mg PO DAILY 12/27/16 12/27/16 Folic Acid 1 mg PO DAILY 12/27/16 12/27/16 Insulin Glargine,Hum.rec.anlog 10 unit SQ HS 12/27/16 12/27/16 [Lantus] Megestrol Acetate [Megace] 10 ml PO DAILY 12/27/16 12/27/16 metFORMIN [glucOPHAGE] 1,000 mg PO BID 12/27/16 12/27/16 traMADol [Ultram] 50 mg PO Q6 PRN 12/27/16 12/27/16 Review of Systems - Review of Systems Constitutional: absent: Fatigue, Weight Change, Fevers ENT: absent: Hearing Changes Respiratory: absent: SOB, Cough, Sputum, Wheezing Cardiovascular: absent: Chest Pain, Edema, Calf Pain, NAIR, Orthopnea Gastrointestinal: absent: Constipation, Diarrhea, Nausea, Vomiting Genitourinary Male: absent: Dysuria Neurological: Other (lightheaded). absent: Headache Physical Exam Vital Signs Temp Pulse Resp BP Pulse Ox 01/11/17 17:05 98.3 F 97 H 20 136/83 100 01/11/17 14:39 98.1 F 105 H 21 136/80 99 Medical Decision Making ED Course and Treatment: 01/11/17 16:58 EKG shows sinus tach at 102bpm wtih normal intervals and no ST changes. Patient is hyperglycemic with normal ph and normal anion gap. He was given 2L IVF and 10units insulin and his vitals and glucose normalized. He was instructed on the importance of taking his insulin and reports that he now has a prescription. - Lab Interpretations Lab Results: 01/11/17 15:00 01/11/17 15:00 Lab Results 01/11/17 15:25: Urine Color Yellow, Urine Appearance Clear, Urine pH 6.0, Ur Specific Mcgregor <= 1.005, Urine Protein Negative, Urine Glucose (UA) >=1000, Urine Ketones Negative, Urine Blood Negative, Urine Nitrate Negative, Urine Bilirubin Negative, Urine Urobilinogen 0.2, Ur Leukocyte Esterase Negative 01/11/17 15:00: Sodium 134, Chloride 102, Potassium 4.3, Carbon Dioxide 18 L, Anion Gap 18, BUN 20, Creatinine 0.8, Est GFR ( Amer) > 60, Est GFR (Non- Af Amer) > 60, Random Glucose 519 H* D, Calcium 10.0, Phosphorus 3.8, Magnesium 1.4 L, Total Bilirubin 0.3, AST 26, ALT 32, Alkaline Phosphatase 92, Lactate Dehydrogenase 298 L, Total Creatine Kinase 54, Troponin I < 0.01 D, Total Protein 7.4, Albumin 4.0, Globulin 3.4, Albumin/Globulin Ratio 1.2 01/11/17 15:00: pO2 75 H, VBG pH 7.34, VBG pCO2 37.0 L, VBG HCO3 20.0 L, VBG Total CO2 21.1 L, VBG O2 Sat (Calc) 97.0 H, VBG Base Excess -5.3 L, VBG Potassium 4.4, Sodium 136.0, Chloride 105.0, Glucose 520 H*, Lactate 2.3 H, FiO2 21.0, Venous Blood Potassium 4.4 01/11/17 15:00: WBC 10.6 D, RBC 3.48 L, Hgb 9.4 L, Hct 27.4 L, MCV 78.7 L, MCH 27.0, MCHC 34.3, RDW 14.4, Plt Count 268, MPV 9.8, Gran % 63.8, Lymph % (Auto) 28.7, Yell % (Auto) 5.7, Eos % (Auto) 1.5, Baso % (Auto) 0.3, Gran # 6.76 H, Lymph # 3.1, Yell # 0.6, Eos # 0.2, Baso # 0.03 - RAD Interpretation Radiology Orders: 01/11/17 14:53 CHEST PORTABLE [RAD] Stat - Medication Orders Current Medication Orders: Discontinued Medications Sodium Chloride (Sodium Chloride 0.9%) 1,000 mls @ 999 mls/hr IV .Q1H1M STA Stop: 01/11/17 15:55 Last Admin: 01/11/17 15:00 Dose: 999 mls/hr Sodium Chloride (Sodium Chloride 0.9%) 1,000 mls @ 999 mls/hr IV .Q1H1M STA Stop: 01/11/17 16:24 Last Admin: 01/11/17 15:37 Dose: 999 mls/hr Insulin Human Regular (Humulin R) 10 units IV STAT STA Stop: 01/11/17 15:48 Last Admin: 01/11/17 15:53 Dose: 10 units Insulin Human Regular (Humulin R) Confirm Administered Dose 5 units .ROUTE .[facility] Stop: 01/11/17 15:52 Last Admin: 01/11/17 15:57 Dose: Disposition/Present on Arrival - Present on Arrival Any Indicators Present on Arrival: No History of DVT/PE: No History of Uncontrolled Diabetes: Yes Urinary Catheter: No History of Decub. Ulcer: No History Surgical Site Infection Following: None - Disposition Have Diagnosis and Disposition been Completed?: Yes Diagnosis: Hyperglycemia Disposition: HOME/ ROUTINE Disposition Time: 16:59 Patient Plan: Discharge Condition: GOOD Discharge Instructions (ExitCare): Diabetic Hyperglycemia (ED) Additional Instructions: Take all medication as prescribed. Return to emergency department if condition worsens. Referrals: Merry Zhao MD [Primary Care Provider] - Follow up with primary
[2017-01-11 15:21] LABS: BASO # 0.03 K/mm3 (0.0-2.0); BASO % 0.3 % (0.0-3.0); EOS # 0.2 (0.0-0.7); EOS % 1.5 % (1.5-5.0); GRAN # 6.76 (1.4-6.5); GRAN % 63.8 % (50.0-68.0); HEMOGLOBIN 9.4 gm/dL (14.0-18.0); LYMPH # 3.1 (1.2-3.4); LYMPH % 28.7 % (22.0-35.0); MEAN CELL VOLUME 78.7 fL (80.0-105.0); MEAN CORPUSCULAR HGB CONC 34.3 g/dl (31.0-37.0); MEAN PLATELET VOLUME 9.8 fl (7.0-11.0); MONO # 0.6 (0.1-0.6); MONO % 5.7 % (1.0-6.0); PLATELET COUNT 268 10^3/uL (120.0-450.0); RBC 3.48 10^6/uL (3.5-6.1); RED CELL DISTRIBUTION WIDTH 14.4 % (11.5-14.5); VENOUS BLOOD GAS BASE EXCESS -5.3 mmol/L (0.0-2.0); VENOUS BLOOD GAS PO2 75 mm/Hg (30-55); VENOUS BLOOD PH 7.34 (7.32-7.43); WHITE BLOOD COUNT 10.6 10^3/ul (4.5-11.0)
[2017-01-11 15:38] LABS: URINE BILIRUBIN NEGATIVE (NEGATIVE); URINE BLOOD NEGATIVE (NEGATIVE); URINE GLUCOSE (UA) >=1000 mg/dL (NEGATIVE); URINE LEUKOCYTE ESTERASE NEGATIVE Leu/uL (NEGATIVE); URINE NITRATE NEGATIVE (NEGATIVE); URINE PROTEIN NEGATIVE mg/dL (<30 mg/dL); URINE UROBILINOGEN 0.2 E.U./dL (<1 E.U./dL)
--- NOTE | 2017-01-11 15:38 | RAD ---
HISTORY: hyperglycemia COMPARISON: 11/20/2016 FINDINGS: LUNGS: No active pulmonary disease. PLEURA: No significant pleural effusion identified, no pneumothorax apparent. CARDIOVASCULAR: Normal. OSSEOUS STRUCTURES: No significant abnormalities. VISUALIZED UPPER ABDOMEN: Normal. OTHER FINDINGS: None. IMPRESSION: No active disease.
[2017-01-11 15:41] LABS: URINE APPEARANCE CLEAR (CLEAR); URINE COLOR YELLOW (YELLOW)
[2017-01-11 15:43] LABS: ALB/GLOB RATIO 1.2 (1.1-1.8); ALT/SGPT 32 U/L (7-56); AST/SGOT 26 U/L (15-59); BLOOD UREA NITROGEN 20 mg/dL (7-21); GFR AFRICAN-AMERICAN > 60; GFR NON-AFRICAN AMERICAN > 60; MAGNESIUM 1.4 mg/dL (1.7-2.2)
[2017-01-11] MEDS ORDERED: Insulin Regular 1 UNITS/0.01 ML ML IV STA (15:47)
[2017-01-11] MEDS ORDERED: Insulin Regular 1 UNITS/0.01 ML ML ONE (15:51)
[2017-01-11 15:56] LABS: TROPONIN I < 0.01 ng/mL
[2017-01-11 17:07] VITALS: BP 136/83; PULSE 97; RESP 20; TEMP 98.3; O2SAT 100
--- NOTE | 2017-01-12 09:41 | CARD ---
APPROVED REPORT EKG Measurement Heart [id number] <Conclusion> Sinus tachycardia Otherwise normal ECG
== END 2017-01-11 17:07 | disposition home or self-care (01) ==
LOC: ED 14:37
DX: E11.65 Type 2 diabetes mellitus with hyperglycemia (principal); I10 Essential (primary) hypertension; Z72.0 Tobacco use
CPT/HCPCS: 71010; 80053; 81003; 82550; 82803; 83615; 83735; 84100; 84484; 85025; 93005; 96361; 96374; 99284; J7040

== ENCOUNTER 2017-07-26 19:30 | Emergency (ER) | payer MEDICAID ==
[2017-07-26 19:31] VITALS: BMI 23.1
[2017-07-26 19:58] VITALS: TEMP 98.8
[2017-07-26 21:07] LABS: BASO # 0.04 K/mm3 (0.0-2.0); BASO % 0.4 % (0.0-3.0); EOS # 0.2 (0.0-0.7); EOS % 1.4 % (1.5-5.0); GRAN # 7.56 (1.4-6.5); GRAN % 67.3 % (50.0-68.0); HEMOGLOBIN 12.7 g/dL (14.0-18.0); LYMPH # 2.5 (1.2-3.4); LYMPH % 22.3 % (22.0-35.0); MEAN CORPUSCULAR HEMOGLOBIN 27.8 pg (25.0-35.0); MEAN CORPUSCULAR HGB CONC 34.3 g/dl (31.0-37.0); MEAN PLATELET VOLUME 10.7 fl (7.0-11.0); MONO % 8.6 % (1.0-6.0); RBC 4.57 10^6/uL (3.5-6.1); RED CELL DISTRIBUTION WIDTH 13.5 % (11.5-14.5); WHITE BLOOD COUNT 11.2 10^3/ul (4.5-11.0)
[2017-07-26 21:23] LABS: ALB/GLOB RATIO 1.4 (1.1-1.8); ALBUMIN 4.3 g/dL (3.0-4.8); ALT/SGPT 118 U/L (7-56); AST/SGOT 86 U/L (17-59); BLOOD UREA NITROGEN 21 mg/dL (7-21); CALCIUM 10.1 mg/dL (8.4-10.5); GFR AFRICAN-AMERICAN > 60; GFR NON-AFRICAN AMERICAN > 60; MAGNESIUM 1.6 mg/dL (1.7-2.2)
[2017-07-26 21:28] LABS: B-TYPE NATRIURETIC PEPTIDE 48.8 pg/mL (0-450); TROPONIN I < 0.01 ng/mL
[2017-07-26 21:36] LABS: INR 0.93 (0.93-1.08); PARTIAL THROMBOPLASTIN TIME 32.9 Seconds (25.1-36.5); PROTHROMBIN TIME 10.6 SECONDS (9.4-12.5)
[2017-07-26] MEDS ORDERED: Sodium Chloride 0.9% 1,000 ML IV STA (21:45)
[2017-07-26] MEDS ORDERED: Magnesium Sulfate 1 gm in D5W 1 GM/100 ML BAG IVPB ONE (21:45)
--- NOTE | 2017-07-26 21:46 | ED PDOC ---
Arrival/HPI - General Chief Complaint: Back Pain Time Seen by Provider: 07/26/17 20:02 Historian: Patient, Family - History of Present Illness Narrative History of Present Illness (Text): you were treated in the ED today for history of COPD, left flank pain and pain related difficulty breathing with mild dark urine but otherwise without any trauma/fall/neck pain/nausea/vomiting/headache/dizziness/chest pain/abdomen pain /numbness/tingling/loss of limb function/pain with urination. you didn't want sexual disease testing or treatment. 07/26/17 21:56 07/26/17 22:53 Time/Duration: Other (2 days) Symptom Course: Unchanged Quality: Aching Severity Level: 4 Activities at Onset: Rest Context: Sitting Past Medical History - Provider Review Nursing Documentation Reviewed: Yes - Travel History Have you recently traveled outside [place] w/in the past 3 mons?: No - Infectious Disease Hx of Infectious Diseases: None - Tetanus Immunization Tetanus Immunization: Unknown - Cardiac Hx Cardiac Disorders: Yes Hx Angina: Yes Hx Hypertension: Yes - Pulmonary Hx Respiratory Disorders: Yes Hx Pneumonia: Yes - Neurological Hx Neurological Disorder: No - HEENT Hx HEENT Disorder: No - Renal Hx Renal Disorder: No - Endocrine/Metabolic Hx Endocrine Disorders: Yes Hx Diabetes Mellitus Type 2: Yes - Hematological/Oncological Hx Blood Disorders: No - Integumentary Hx Dermatological Disorder: No Other/Comment: right foot ulcer mrsa possibly - Musculoskeletal/Rheumatological Hx Musculoskeletal Disorders: Yes Hx Falls: Yes (3 months ago (Aug 2016)) Hx Unsteady Gait: Yes - Gastrointestinal Hx Gastrointestinal Disorders: No - Genitourinary/Gynecological Hx Genitourinary Disorders: No - Psychiatric Hx Psychophysiologic Disorder: Yes Hx Anxiety: Yes Hx Depression: Yes Hx Hallucinations: Yes Hx Substance Use: Yes - Surgical History Other/Comment: "left foot surgery" - Anesthesia Hx Anesthesia: Yes Hx Anesthesia Reactions: No Hx Malignant Hyperthermia: No - Suicidal Assessment Feels Threatened In Home Enviroment: No Family/Social History - Physician Review Nursing Documentation Reviewed: Yes Family/Social History: No Known Family HX Smoking Status: Heavy Smoker > 10 Cigarettes Daily Hx Alcohol Use: Yes Hx Substance Use: Yes Hx Substance Use Treatment: No Allergies/Home Meds Allergies/Adverse Reactions: Allergies No Known Allergies Allergy (Verified 12/27/16 01:50) Home Medications: Home Meds Medication Instructions Recorded Confirmed Alprazolam [Xanax] 2 mg PO DAILY PRN 07/26/17 07/26/17 Lisinopril [Zestril] 25 mg PO DAILY 07/26/17 07/26/17 Oxycodone HCl [Oxycontin] 10 mg PO PRN PRN 07/26/17 07/26/17 metFORMIN [glucOPHAGE] 500 mg PO BID 07/26/17 07/26/17 Review of Systems - Review of Systems Constitutional: Normal Eyes: Normal ENT: Normal Respiratory: SOB Cardiovascular: Normal Gastrointestinal: Normal Genitourinary Male: Other (dark urine) Musculoskeletal: Back Pain Skin: Normal Neurological: Normal Endocrine: Normal Hemo/Lymphatic: Normal Psychiatric: Normal Physical Exam Vital Signs Reviewed: Yes Vital Signs Temp Pulse Resp BP Pulse Ox 07/26/17 19:56 98.8 F 94 H 20 158/83 H 98 Temperature: Afebrile Blood Pressure: Hypertensive Pulse: Regular Respiratory Rate: Normal Appearance: Positive for: Well-Appearing, Non-Toxic Pain Distress: None Mental Status: Positive for: Alert and Oriented X 3 - Systems Exam Head: Present: Atraumatic, Normocephalic Pupils: Present: PERRL Extroacular Muscles: Present: EOMI Conjunctiva: Present: Normal Ears: Present: Normal Mouth: Present: Moist Mucous Membranes Pharnyx: Present: Normal Nose (External): Present: Atraumatic Nose (Internal): Present: Normal Inspection Neck: Present: Normal Range of Motion Respiratory/Chest: Present: Clear to Auscultation, Good Air Exchange Cardiovascular: Present: Regular Rate and Rhythm Abdomen: No: Tenderness, Distention, Normal Bowel Sounds, Peritoneal Signs, Rebound, Guarding, McBurney's Point Tender, Rovsing's Sign Present, Hernias, Feeding Tubes, Ostomy Tubes, Mass/Organomegaly, Scars, Other Back: Present: Normal Inspection, CVA Tenderness, Other (no c-t-l spinal. mild left lower back cva tenderness.). No: Midline Tenderness, Paraspinal Tenderness , Pain with Leg Raise, Decubitus Ulcer Upper Extremity: Present: Normal Inspection Lower Extremity: Present: Normal Inspection Neurological: Present: GCS=15, CN II-XII Intact, Speech Normal, Motor Func Grossly Intact Skin: Present: Warm, Normal Color Psychiatric: Present: Alert, Oriented x 3, Normal Insight, Normal Concentration Medical Decision Making ED Course and Treatment: you were treated in the ED today for history of COPD, left flank pain and pain related difficulty breathing with mild dark urine but otherwise without any trauma/fall/neck pain/nausea/vomiting/headache/dizziness/chest pain/abdomen pain /numbness/tingling/loss of limb function/pain with urination. you didn't want sexual disease testing or treatment. You were otherwise breathing easily, smiling with your brother, good strength/sensation, alert/oriented, walking easily, clear lungs, no abdomen tenderness, mild left lower back pain without any other spinal or other back tenderness, no fever temp 98.8, stable heart rate 94, stable breathing rate 20, excellent oxygen level 98% room air, elevated blood pressure 158/83 which we recommend repeat in 2-3 days primary care office to determine further treatment, you have blood tests mild infection count 11.2, stable blood level hemoglobin 12.7/platelets 217, stable chemistry, glucose 316 with hydration given, liver AST/ALT mildly elevated 86/118 without skin yellowing, magnesium mildly low 1.6 and supplement given, heart blood test negative, heart failure test within normal limits, urine test with sign of infection and antibiotics given, radiology CT chest no acute findings, CT abdomen/pelvis mild kidney stranding and bladder thickening without other acute findings, ECG normal sinus rhythm, percocet, ciprofloxacin done in the ED with improvement, counselled to drink lots of fluids and thus discharged home with brother who is driving. 1. Recommend ciprofloxacin as directed for infection control urine/early kidney infection. 2. Recommend tylenol as directed for mild pain, percocet as directed for breakthrough pain and don't work/drive/drink alcohol when using. Zofran as directed for nausea. 3. Recommend follow-up primary care 2-3 days to review symptoms, referral to surgery for adrenal gland lesion to ensure no complications/cancer development, referral to urology for bladder wall thickening, prostate enlargement, kidney stranding to ensure no complications/cancer development. 4. If any worsening pain, fever, chills, nausea, vomiting, difficulty breathing, numbness, loss of limb function, pain with urination or any medical condition then return to the ED. 07/26/17 22:54 - Lab Interpretations Lab Results: 07/26/17 20:55 07/26/17 20:55 Lab Results 07/26/17 22:15: Urine Color Yellow, Urine Appearance Sl cloudy, Urine pH 6.0, Ur Specific [place] 1.020, Urine Protein Negative, Urine Glucose (UA) >=1000, Urine Ketones Negative, Urine Blood Trace-intact H, Urine Nitrate Positive H, Urine Bilirubin Negative, Urine Urobilinogen 0.2, Ur Leukocyte Esterase Small H , Urine RBC 0 - 2, Urine WBC 5 - 10, Ur Epithelial Cells 4 - 5, Urine Bacteria Large, Urine Other Trichomonas 07/26/17 20:55: Sodium 133, Potassium 4.4, Chloride 97 L, Carbon Dioxide 25, Anion Gap 15, BUN 21, Creatinine 1.0, Est GFR ( Amer) > 60, Est GFR (Non- Af Amer) > 60, Random Glucose 316 H* D, Calcium 10.1, Magnesium 1.6 L, Total Bilirubin 0.4, AST 86 H, ALT 118 H, Alkaline Phosphatase 104, Lactate Dehydrogenase 550, Total Creatine Kinase 220, Troponin I < 0.01, NT-Pro-B Natriuret Pep 48.8, Total Protein 7.4, Albumin 4.3, Globulin 3.1, Albumin/ Globulin Ratio 1.4 07/26/17 20:55: PT 10.6, INR 0.93, APTT 32.9 07/26/17 20:55: WBC 11.2 H, RBC 4.57, Hgb 12.7 L, Hct 37.0 L, MCV 81.0, MCH 27.8 , MCHC 34.3, RDW 13.5, Plt Count 217, MPV 10.7, Gran % 67.3, Lymph % (Auto) 22.3 , [place] % (Auto) 8.6 H, Eos % (Auto) 1.4 L, Baso % (Auto) 0.4, Gran # 7.56 H, Lymph # 2.5, [place] # 1.0 H, Eos # 0.2, Baso # 0.04 I have reviewed the lab results: Yes - RAD Interpretation Radiology Orders: 07/26/17 20:41 ABD & PELVIS W/O PO OR IV CONT [CT] Stat CHEST W/O CONTRAST [CT] Stat Packaging Tech: Radiologist - EKG Interpretation Interpreted by ED Physician: Yes (NSR, flipped t waves avr, iii, flattened avl) Type: 12 lead EKG Comparison: Similar to previous EKG (11/20/16) - Medication Orders Current Medication Orders: Discontinued Medications Ciprofloxacin (Cipro) 500 mg PO ONCE STA PRN Reason: Protocol Stop: 07/26/17 22:50 Last Admin: 07/26/17 23:07 Dose: 500 mg Magnesium Sulfate/Dextrose (Magnesium Sulfate 1 Gm/100 Ml D5w) 1 gm in 100 mls @ 100 mls/hr IVPB ONCE ONE Stop: 07/26/17 22:44 Last Admin: 07/26/17 21:59 Dose: 100 mls/hr eMAR Start Stop Document 07/26/17 21:59 AD (Rec: 07/26/17 21:59 AD [email or web address] Intravenous Solution Start Date 07/26/17 Start Time 21:59 Sodium Chloride (Sodium Chloride 0.9%) 1,000 mls @ 999 mls/hr IV .Q1H1M STA Stop: 07/26/17 22:45 Last Admin: 07/26/17 21:56 Dose: 999 mls/hr eMAR Start Stop Document 07/26/17 21:56 AD (Rec: 07/26/17 21:59 AD [email or web address]) Intravenous Solution Start Date 07/26/17 Start Time 21:59 Oxycodone/Acetaminophen (Percocet 5/325 Mg Tab) 1 tab PO STAT STA Stop: 07/26/17 22:51 Last Admin: 07/26/17 23:09 Dose: 1 tab MAR Pain Assessment Document 07/26/17 23:09 AD (Rec: 07/26/17 23:09 AD [email or web address] Pain Reassessment Is this a pain reassessment? No Presence of Pain Presence of Pain Yes Pain Scale Used Pain Scale Used Numeric Description Intensity of Pain at present 8 Pain Behavior Facial Grimacing Disposition/Present on Arrival - Present on Arrival Any Indicators Present on Arrival: No History of DVT/PE: No History of Uncontrolled Diabetes: Yes Urinary Catheter: No History of Decub. Ulcer: No History Surgical Site Infection Following: None - Disposition Have Diagnosis and Disposition been Completed?: Yes Diagnosis: UTI (urinary tract infection), Pyelonephritis Disposition: HOME/ ROUTINE Disposition Time: 23:09 Patient Plan: Discharge Patient Problems: Current Active Problems Problem Status Onset Pyelonephritis Acute UTI (urinary tract infection) Acute Condition: IMPROVED Additional Instructions: you were treated in the ED today for history of COPD, left flank pain and pain related difficulty breathing with mild dark urine but otherwise without any trauma/fall/neck pain/nausea/vomiting/headache/dizziness/chest pain/abdomen pain /numbness/tingling/loss of limb function/pain with urination. you didn't want sexual disease testing or treatment. You were otherwise breathing easily, smiling with your brother, good strength/sensation, alert/oriented, walking easily, clear lungs, no abdomen tenderness, mild left lower back pain without any other spinal or other back tenderness, no fever temp 98.8, stable heart rate 94, stable breathing rate 20, excellent oxygen level 98% room air, elevated blood pressure 158/83 which we recommend repeat in 2-3 days primary care office to determine further treatment, you have blood tests mild infection count 11.2, stable blood level hemoglobin 12.7/platelets 217, stable chemistry, glucose 316 with hydration given, liver AST/ALT mildly elevated 86/118 without skin yellowing, magnesium mildly low 1.6 and supplement given, heart blood test negative, heart failure test within normal limits, urine test with sign of infection and antibiotics given, radiology CT chest no acute findings, CT abdomen/pelvis mild kidney stranding and bladder thickening without other acute findings, ECG normal sinus rhythm, percocet, ciprofloxacin done in the ED with improvement, counselled to drink lots of fluids and thus discharged home with brother who is driving. 1. Recommend ciprofloxacin as directed for infection control urine/early kidney infection. 2. Recommend tylenol as directed for mild pain, percocet as directed for breakthrough pain and don't work/drive/drink alcohol when using. Zofran as directed for nausea. 3. Recommend follow-up primary care 2-3 days to review symptoms, referral to surgery for adrenal gland lesion to ensure no complications/cancer development, referral to urology for bladder wall thickening, prostate enlargement, kidney stranding to ensure no complications/cancer development. 4. If any worsening pain, fever, chills, nausea, vomiting, difficulty breathing, numbness, loss of limb function, pain with urination or any medical condition then return to the ED. Prescriptions: Ciprofloxacin [Cipro] 500 mg PO Q12 7 Days #14 tab Ondansetron ODT [Zofran ODT] 4 mg PO Q8 PRN #20 odt PRN Reason: Nausea/Vomiting oxyCODONE/Acetaminophen 1/2TAB [Percocet 5-325 mg HALF TAB] 0.5 ea PO Q6 PRN 3 Days #8 tab PRN Reason: breakthrough pain Referrals: Merry Zhao MD [Primary Care Provider] - Follow up with primary Forms: [employer] (Thai)
--- NOTE | 2017-07-26 22:03 | CT ---
EXAM: CT Chest Without Intravenous Contrast CLINICAL HISTORY: 46 years old, male; Signs and symptoms; Cough; Smoker's cough; Additional info: 46yom, copd/sob TECHNIQUE: Axial computed tomography images of the chest without intravenous contrast. All CT scans at this facility use one or more dose reduction techniques, viz.: automated exposure control; ma/kV adjustment per patient size (including targeted exams where dose is matched to indication; i.e. head); or iterative reconstruction technique. Coronal and sagittal reformatted images were created and reviewed. COMPARISON: DX - CHEST PORTABLE 2017-01-11 15:26 FINDINGS: Limitations: Lack of intravenous contrast. Lungs: No consolidation. Pleural space: No pneumothorax. No significant effusion. Heart: No cardiomegaly. No significant pericardial effusion. Thyroid: Mild diffuse prominence of thyroid gland. Bones/joints: No acute fracture. Soft tissues: Unremarkable. Vasculature: Unremarkable. No aneurysm. Lymph nodes: No pathologically enlarged lymph nodes. Upper abdomen: See abdomen CT report for additional details. IMPRESSION: 1. No definite CT evidence of pneumonia. 2. Incidental/non-acute findings are described above.
--- NOTE | 2017-07-26 22:12 | CT ---
EXAM: CT Abdomen and Pelvis Without Intravenous Contrast CLINICAL HISTORY: 46 years old, male; Pain; Abdominal pain; Flank; Left; Additional info: 46yom, left flank pain TECHNIQUE: Axial computed tomography images of the abdomen and pelvis without intravenous contrast. All CT scans at this facility use one or more dose reduction techniques, viz.: automated exposure control; ma/kV adjustment per patient size (including targeted exams where dose is matched to indication; i.e. head); or iterative reconstruction technique. Coronal and sagittal reformatted images were created and reviewed. COMPARISON: No relevant prior studies available. FINDINGS: Lower thorax: See chest CT report for additional details. ABDOMEN: Liver: Unremarkable. Gallbladder and bile ducts: No calcified stones. No ductal dilation. Pancreas: Unremarkable. No ductal dilation. Spleen: No splenomegaly. Adrenals: Mild hypertrophy of adrenal glands. 2.7 x 2.1 x 1.8 cm lesion within RIGHT adrenal gland, indeterminate by CT criteria. Kidneys and ureters: Mild stranding about kidneys. No renal calculi. No hydronephrosis. Stomach and bowel: No definite mural thickening. No obstruction. Appendix: Normal caliber. No inflammation. PELVIS: Bladder: Apparent mild bladder wall thickening. No stones. Reproductive: Mildly enlarged prostate. ABDOMEN and PELVIS: Intraperitoneal space: No significant fluid collection. No free air. Bones/joints: No acute fracture. Soft tissues: Small ventral hernia containing fat. Small umbilical hernia containing fat. Vasculature: Mild atherosclerotic disease. No aneurysm. Lymph nodes: No pathologically enlarged lymph nodes. IMPRESSION: 1. No definite CT evidence of urolithiasis. 2. Perinephric stranding, nonspecific. Bladder wall thickening, nonspecific. Correlate with urinalysis to exclude infection. 3. Adrenal lesion. Recommend further evaluation with MR. Alternatively, if there is a history of malignancy, consider PET. 4. Incidental/non-acute findings are described above.
[2017-07-26 22:32] LABS: URINE BILIRUBIN NEGATIVE (NEGATIVE); URINE BLOOD TRACE-INTACT (NEGATIVE); URINE GLUCOSE (UA) >=1000 mg/dL (NEGATIVE); URINE LEUKOCYTE ESTERASE SMALL Leu/uL (NEGATIVE); URINE NITRATE POSITIVE (NEGATIVE); URINE PROTEIN NEGATIVE mg/dL (<30 mg/dL); URINE UROBILINOGEN 0.2 E.U./dL (<1 E.U./dL)
[2017-07-26 22:35] LABS: URINE APPEARANCE SL CLOUDY (CLEAR); URINE COLOR YELLOW (YELLOW)
[2017-07-26 22:45] LABS: URINE BACTERIA LARGE (NEG); URINE RBC 0 - 2 /hpf (0-2)
[2017-07-26] MEDS ORDERED: Oxycodone/Acetaminophen 5/325 mg Tab PO STA (22:50)
[2017-07-26 23:35] VITALS: BP 135/82; PULSE 90; RESP 18; O2SAT 100
--- NOTE | 2017-07-27 11:06 | CARD ---
APPROVED REPORT EKG Measurement Heart [id number] <Conclusion> Normal sinus rhythm Nonspecific T wave abnormality, new. Slight ST elevations 1.L Peaked T waves V 1 - 3
== END 2017-07-26 23:37 | disposition home or self-care (01) ==
LOC: ED 19:30
DX: N12 Tubulo-interstitial nephritis, not specified as acute or chronic (principal); I10 Essential (primary) hypertension; E11.9 Type 2 diabetes mellitus without complications; F17.210 Nicotine dependence, cigarettes, uncomplicated; J44.9 Chronic obstructive pulmonary disease, unspecified
CPT/HCPCS: 71250; 74176; 80053; 81001; 82550; 83615; 83735; 83880; 84484; 85025; 85610; 85730; 87086; 93005; 99283; J3475; J7040

== ENCOUNTER 2018-02-25 16:33 | Emergency (ER) | payer MEDICAID ==
[2018-02-25 17:18] VITALS: PULSE 86; RESP 18; TEMP 98; BMI 24.3
--- NOTE | 2018-02-25 18:01 | ED PDOC ---
Arrival/HPI <Ramses Estevez - Last Filed: 02/25/18 19:11> <Nikko Gee - Last Filed: 02/25/18 21:34> - General Chief Complaint: Back Pain Time Seen by Provider: 02/25/18 17:02 - History of Present Illness Narrative History of Present Illness (Text): 02/25/18 17:58 47 yr old male w/ hx of DM2, recent UTI p/w L sided flank pain and anxiety. He notes feeling anxious 1 hour prior to arrival- "like a panic attack with weakness." The weakness resolved with his anxiety, which only lasted a couple of seconds. He also notes recent UTI which was treated ~[address] Garza. He notes finishing his antibiotics yesterday but still notes L sided flank pain. He notes months of L sided flank pain, non tearing without any nausea, vomiting, fever, chills or night sweat. Abdominal pain is non sharp, non stabbing, without radiation. He denies any dysuria, urgency, frequency. No chest pain or sob. No other complaints. (Ramses Estevez) Past Medical History - Provider Review Nursing Documentation Reviewed: Yes - Travel History Have you recently traveled outside [place] w/in the past 3 mons?: No - Infectious Disease Hx of Infectious Diseases: None - Tetanus Immunization Tetanus Immunization: Unknown - Cardiac Hx Cardiac Disorders: Yes Hx Angina: Yes Hx Hypertension: Yes - Pulmonary Hx Respiratory Disorders: Yes Hx Chronic Obstructive Pulmonary Disease (COPD): Yes Hx Pneumonia: Yes - Neurological Hx Neurological Disorder: No - HEENT Hx HEENT Disorder: No - Renal Hx Renal Disorder: No - Endocrine/Metabolic Hx Endocrine Disorders: Yes Hx Diabetes Mellitus Type 2: Yes - Hematological/Oncological Hx Blood Disorders: No - Integumentary Hx Dermatological Disorder: No Other/Comment: right foot ulcer mrsa possibly - Musculoskeletal/Rheumatological Hx Musculoskeletal Disorders: Yes Hx Falls: Yes (3 months ago (Aug 2016)) Hx Unsteady Gait: Yes - Gastrointestinal Hx Gastrointestinal Disorders: No - Genitourinary/Gynecological Hx Genitourinary Disorders: No - Psychiatric Hx Psychophysiologic Disorder: Yes Hx Anxiety: Yes Hx Depression: Yes Hx Hallucinations: Yes Hx Substance Use: Yes - Surgical History Other/Comment: "left foot surgery" - Anesthesia Hx Anesthesia: Yes Hx Anesthesia Reactions: No Hx Malignant Hyperthermia: No - Suicidal Assessment Feels Threatened In Home Enviroment: No <Ramses Estevez - Last Filed: 02/25/18 19:11> Family/Social History Family/Social History: Unknown Family HX Smoking Status: Light Smoker < 10 Cigarettes Daily Hx Alcohol Use: Yes Hx Substance Use: Yes Hx Substance Use Treatment: No <Ramses Estevez - Last Filed: 02/25/18 19:11> Allergies/Home Meds <Ramses Estevez - Last Filed: 02/25/18 19:11> <Nikko Gee - Last Filed: 02/25/18 21:34> Allergies/Adverse Reactions: Allergies No Known Allergies Allergy (Verified 12/27/16 01:50) Home Medications: Home Meds Medication Instructions Recorded Confirmed Alprazolam [Xanax] 2 mg PO DAILY PRN 07/26/17 02/25/18 Lisinopril [Zestril] 25 mg PO DAILY 07/26/17 02/25/18 Oxycodone HCl [Oxycontin] 10 mg PO PRN PRN 07/26/17 02/25/18 metFORMIN [glucOPHAGE] 850 mg PO BID 07/26/17 02/25/18 Gabapentin [Neurontin] 1 cap PO BID 02/25/18 02/25/18 Physical Exam Vital Signs Reviewed: Yes Temperature: Afebrile Blood Pressure: Normal Pulse: Regular Respiratory Rate: Normal Appearance: Positive for: Well-Appearing, Non-Toxic, Comfortable Pain Distress: None Mental Status: Positive for: Alert and Oriented X 3 - Systems Exam Head: Present: Atraumatic, Normocephalic Pupils: Present: PERRL Extroacular Muscles: Present: EOMI Conjunctiva: Present: Normal Mouth: Present: Moist Mucous Membranes Neck: Present: Normal Range of Motion Respiratory/Chest: Present: Clear to Auscultation, Good Air Exchange. No: Respiratory Distress, Accessory Muscle Use Cardiovascular: Present: Regular Rate and Rhythm, Normal S1, S2. No: Murmurs Abdomen: No: Tenderness, Distention, Peritoneal Signs Back: Present: CVA Tenderness (L). No: Midline Tenderness, Paraspinal Tenderness, Pain with Leg Raise, Decubitus Ulcer Upper Extremity: Present: Normal Inspection. No: Cyanosis, Edema Lower Extremity: Present: Normal Inspection. No: Edema Neurological: Present: GCS=15, CN II-XII Intact, Speech Normal, Motor Func Grossly Intact, Normal Cerebellar Funct, Other (no saddle anesthesia) Skin: Present: Warm, Dry, Normal Color. No: Rashes Psychiatric: Present: Alert, Oriented x 3, Normal Insight, Normal Concentration <Ramses Estevez - Last Filed: 02/25/18 19:11> Vital Signs Temp Pulse Resp BP Pulse Ox 02/25/18 16:57 98.0 F 86 18 137/81 96 Medical Decision Making <Ramses Estevez - Last Filed: 02/25/18 19:11> <Nikko Gee - Last Filed: 02/25/18 21:34> ED Course and Treatment: 02/25/18 18:02 47 yr old male w/ hx of UTI, DM2 p/w L sided flank pain, anxiety/panic attack + weakness (without SI or HI). On exam, normal neuro exam, normal affect, well appearing. No hx of SI or HI attempts in past per pt. Will seek out labs and CT. 02/25/18 19:11 signed out pending UA and CT to oncoming physician. (Ramses Estevez) - Lab Interpretations Lab Results: 02/25/18 17:43 02/25/18 17:43 Lab Results 02/25/18 19:45: Urine Color Yellow, Urine Appearance Clear, Urine pH 6.0, Ur Specific [place] 1.025, Urine Protein Negative, Urine Glucose (UA) Negative, Urine Ketones Negative, Urine Blood Trace-intact H, Urine Nitrate Negative, Urine Bilirubin Negative, Urine Urobilinogen 0.2, Ur Leukocyte Esterase Negative , Urine RBC 0 - 2, Urine WBC Negative, Ur Epithelial Cells 1 - 3 02/25/18 17:43: TSH 3rd Generation 0.78 02/25/18 17:43: Sodium 141, Potassium 4.6, Chloride 105, Carbon Dioxide 24, Anion Gap 16, BUN 16, Creatinine 0.8, Est GFR ( Amer) > 60, Est GFR (Non- Af Amer) > 60, Random Glucose 175 H, Calcium 9.6, Total Bilirubin 0.3, AST 32, ALT 24, Alkaline Phosphatase 87, Troponin I < 0.01, Total Protein 7.6, Albumin 4.4, Globulin 3.2, Albumin/Globulin Ratio 1.4, Lipase 45 02/25/18 17:43: WBC 13.2 H, RBC 4.48, Hgb 12.1 L, Hct 34.4 L, MCV 76.8 L D, MCH 27.0, MCHC 35.2, RDW 13.1, Plt Count 241, MPV 10.0, Gran % 69.0 H, Lymph % (Auto ) 22.7, [place] % (Auto) 6.2 H, Eos % (Auto) 1.7, Baso % (Auto) 0.4, Gran # 9.09 H , Lymph # (Auto) 3.0, [place] # (Auto) 0.8 H, Eos # (Auto) 0.2, Baso # (Auto) 0.05 - RAD Interpretation Radiology Orders: 02/25/18 18:54 ABDOMEN & PELVIS [ABD & PELVIS IV CONTRAST ONLY] [CT] Stat - Medication Orders Current Medication Orders: Discontinued Medications Sodium Chloride (Sodium Chloride 0.9%) 1,000 mls @ 999 mls/hr IV .Q1H1M STA Stop: 02/25/18 20:17 Last Admin: 02/25/18 19:26 Dose: 999 mls/hr eMAR Start Stop Document 02/25/18 19:26 SS (Rec: 02/25/18 19:26 SS [id number]) Intravenous Solution Start Date 02/25/18 Start Time 19:26 End Date 02/25/18 End time 20:26 Total Infusion Time 60 Disposition/Present on Arrival - Present on Arrival Any Indicators Present on Arrival: No History of DVT/PE: No History of Uncontrolled Diabetes: Yes Urinary Catheter: No History of Decub. Ulcer: No History Surgical Site Infection Following: None - Disposition Have Diagnosis and Disposition been Completed?: No <Ramses Estevez - Last Filed: 02/25/18 19:11> - Present on Arrival Any Indicators Present on Arrival: No - Disposition Have Diagnosis and Disposition been Completed?: Yes Disposition Time: 21:29 Patient Plan: Discharge <Nikko Gee - Last Filed: 02/25/18 21:34> - Disposition Diagnosis: Hematuria, UTI (urinary tract infection) Disposition: HOME/ ROUTINE Patient Problems: Current Active Problems Problem Status Onset Hematuria Acute UTI (urinary tract infection) Acute Condition: GOOD Discharge Instructions (ExitCare): Blood in the Urine (Hematuria), Adult (DC), Urinary Tract Infection, Adult (DC) Additional Instructions: Drink plenty of liquids/take meds as prescribed/follow up with your doctor Dr. Garza this week Prescriptions: Cephalexin [cephalexin] 500 mg PO BID #14 cap oxyCODONE/Acetaminophen [Percocet 5/325 mg Tab] 1 ea PO Q6 PRN #12 tab PRN Reason: Pain, Moderate (4-7) Forms: [facility] [facility] ([place]er)
[2018-02-25 18:12] LABS: BASO # 0.05 K/mm3 (0.0-2.0); BASO % 0.4 % (0.0-3.0); EOS # 0.2 (0.0-0.7); EOS % 1.7 % (1.5-5.0); GRAN # 9.09 (1.4-6.5); HEMOGLOBIN 12.1 g/dL (14.0-18.0); LYMPH % 22.7 % (22.0-35.0); MEAN CELL VOLUME 76.8 fl (80.0-105.0); MEAN CORPUSCULAR HGB CONC 35.2 g/dl (31.0-37.0); MONO # 0.8 (0.1-0.6); MONO % 6.2 % (1.0-6.0); RBC 4.48 10^6/uL (3.5-6.1); RED CELL DISTRIBUTION WIDTH 13.1 % (11.5-14.5); WHITE BLOOD COUNT 13.2 10^3/ul (4.5-11.0)
[2018-02-25 18:14] LABS: ALB/GLOB RATIO 1.4 (1.1-1.8); ALBUMIN 4.4 g/dL (3.0-4.8); ALT/SGPT 24 U/L (7-56); AST/SGOT 32 U/L (17-59); BLOOD UREA NITROGEN 16 mg/dL (7-21); CALCIUM 9.6 mg/dL (8.4-10.5); GFR AFRICAN-AMERICAN > 60; GFR NON-AFRICAN AMERICAN > 60; LIPASE 45 U/L (23-300)
[2018-02-25 18:24] LABS: TROPONIN I < 0.01 ng/mL
[2018-02-25] MEDS ORDERED: Sodium Chloride 0.9% 1,000 ML IV STA (19:17)
--- NOTE | 2018-02-25 19:24 | ED PDOC ---
Physical Exam Vital Signs Reviewed: Yes Vital Signs Temp Pulse Resp BP Pulse Ox 02/25/18 16:57 98.0 F 86 18 137/81 96 Temperature: Afebrile Blood Pressure: Normal Pulse: Regular Respiratory Rate: Normal Appearance: Positive for: Well-Appearing, Non-Toxic, Comfortable Pain Distress: None Mental Status: Positive for: Alert and Oriented X 3 - Systems Exam Head: Present: Atraumatic, Normocephalic Pupils: Present: PERRL Extroacular Muscles: Present: EOMI Conjunctiva: Present: Normal Mouth: Present: Moist Mucous Membranes Neck: Present: Normal Range of Motion Respiratory/Chest: Present: Clear to Auscultation, Good Air Exchange. No: Respiratory Distress, Accessory Muscle Use Cardiovascular: Present: Regular Rate and Rhythm, Normal S1, S2. No: Murmurs Abdomen: No: Tenderness, Distention, Peritoneal Signs Back: Present: CVA Tenderness (Left CVA tenderness). No: Midline Tenderness, Paraspinal Tenderness, Pain with Leg Raise, Decubitus Ulcer Upper Extremity: Present: Normal Inspection. No: Cyanosis, Edema Lower Extremity: Present: Normal Inspection. No: Edema Neurological: Present: GCS=15, CN II-XII Intact, Speech Normal, Other (No saddle anesthesia) Skin: Present: Warm, Dry, Normal Color. No: Rashes Psychiatric: Present: Alert, Oriented x 3, Normal Insight, Normal Concentration Medical Decision Making ED Course and Treatment: 02/25/18 19:10 Case endorsed to me by Dr. Ramses Estevez for pending Urinalysis and CT study. Patient had a recent history of UTI and was treated with antibiotics by his doctor with mild improvement to symptoms. Patient still complains of left flank pain. Patient is currently resting in bed in no acute distress. Final disposition pending results. CT Abdomen and Pelvis With Intravenous Contrast Dictated and Authenticated by: Ar Mejia MD 02/25/2018 9:14 PM Eastern Time ([place] & [place]) IMPRESSION: Bilateral perinephric stranding, nonspecific. This could be seen with chronic changes or acute infection in the appropriate clinical setting. Correlate clinically and with urine analysis. No imaging features to suggest acute appendicitis at this time 02/25/18 21:42 On re-evaluation, patient feels better and is in no acute distress. I have discussed the results and plan with the patient, who expresses understanding. Patient in agreement with plan to be discharged home. Patient is stable for discharge. Patient was instructed to follow up with physician or return if symptoms worsen or new concerning symptoms arise. - Lab Interpretations Lab Results: 02/25/18 17:43 02/25/18 17:43 Lab Results 02/25/18 19:45: Urine Color Yellow, Urine Appearance Clear, Urine pH 6.0, Ur Specific [place] 1.025, Urine Protein Negative, Urine Glucose (UA) Negative, Urine Ketones Negative, Urine Blood Trace-intact H, Urine Nitrate Negative, Urine Bilirubin Negative, Urine Urobilinogen 0.2, Ur Leukocyte Esterase Negative , Urine RBC 0 - 2, Urine WBC Negative, Ur Epithelial Cells 1 - 3 02/25/18 17:43: TSH 3rd Generation 0.78 02/25/18 17:43: Sodium 141, Potassium 4.6, Chloride 105, Carbon Dioxide 24, Anion Gap 16, BUN 16, Creatinine 0.8, Est GFR ( Amer) > 60, Est GFR (Non- Af Amer) > 60, Random Glucose 175 H, Calcium 9.6, Total Bilirubin 0.3, AST 32, ALT 24, Alkaline Phosphatase 87, Troponin I < 0.01, Total Protein 7.6, Albumin 4.4, Globulin 3.2, Albumin/Globulin Ratio 1.4, Lipase 45 02/25/18 17:43: WBC 13.2 H, RBC 4.48, Hgb 12.1 L, Hct 34.4 L, MCV 76.8 L D, MCH 27.0, MCHC 35.2, RDW 13.1, Plt Count 241, MPV 10.0, Gran % 69.0 H, Lymph % (Auto ) 22.7, [place] % (Auto) 6.2 H, Eos % (Auto) 1.7, Baso % (Auto) 0.4, Gran # 9.09 H , Lymph # (Auto) 3.0, [place] # (Auto) 0.8 H, Eos # (Auto) 0.2, Baso # (Auto) 0.05 - RAD Interpretation Radiology Orders: 02/25/18 18:54 ABDOMEN & PELVIS [ABD & PELVIS IV CONTRAST ONLY] [CT] Stat - Medication Orders Current Medication Orders: Discontinued Medications Cephalexin Monohydrate (Keflex) 500 mg PO ONCE STA PRN Reason: Protocol Stop: 02/25/18 21:33 Sodium Chloride (Sodium Chloride 0.9%) 1,000 mls @ 999 mls/hr IV .Q1H1M STA Stop: 02/25/18 20:17 Last Admin: 02/25/18 19:26 Dose: 999 mls/hr eMAR Start Stop Document 02/25/18 19:26 SS (Rec: 02/25/18 19:26 SS [id number]) Intravenous Solution Start Date 02/25/18 Start Time 19:26 End Date 02/25/18 End time 20:26 Total Infusion Time 60 Oxycodone/Acetaminophen (Percocet 5/325 Mg Tab) 1 tab PO STAT STA Stop: 02/25/18 21:34 - Scribe Statement The provider has reviewed the documentation as recorded by the Scribe Dana Mckeon. All medical record entries made by the Scribe were at my direction and personally dictated by me. I have reviewed the chart and agree that the record accurately reflects my personal performance of the history, physical exam, medical decision making, and the department course for this patient. I have also personally directed, reviewed, and agree with the discharge instructions and disposition. Disposition/Present on Arrival - Present on Arrival Any Indicators Present on Arrival: No History of DVT/PE: No History of Uncontrolled Diabetes: Yes Urinary Catheter: No History of Decub. Ulcer: No History Surgical Site Infection Following: None - Disposition Have Diagnosis and Disposition been Completed?: Yes Diagnosis: Hematuria, UTI (urinary tract infection) Disposition: HOME/ ROUTINE Disposition Time: 21:30 Condition: GOOD Discharge Instructions (ExitCare): Urinary Tract Infection, Adult (DC), Blood in the Urine (Hematuria), Adult (DC) Additional Instructions: Drink plenty of liquids/take meds as prescribed/follow up with your doctor Dr. Garza this week Prescriptions: Cephalexin [cephalexin] 500 mg PO BID #14 cap oxyCODONE/Acetaminophen [Percocet 5/325 mg Tab] 1 ea PO Q6 PRN #12 tab PRN Reason: Pain, Moderate (4-7) Forms: [facility] [facility] ([place])
[2018-02-25] MEDS ORDERED: Iohexol 350 MG/100 ML VIAL ONE (19:44)
[2018-02-25 20:00] LABS: URINE BILIRUBIN NEGATIVE (NEGATIVE); URINE BLOOD TRACE-INTACT (NEGATIVE); URINE GLUCOSE (UA) NEGATIVE (NEGATIVE); URINE LEUKOCYTE ESTERASE NEGATIVE Leu/uL (NEGATIVE); URINE PROTEIN NEGATIVE mg/dL (<30 mg/dL); URINE UROBILINOGEN 0.2 E.U./dL (<1 E.U./dL)
[2018-02-25 20:03] LABS: URINE APPEARANCE CLEAR (CLEAR); URINE COLOR YELLOW (YELLOW)
[2018-02-25 20:07] LABS: URINE RBC 0 - 2 /hpf (0-2); URINE WBC NEGATIVE /hpf (0-6)
[2018-02-25] MEDS ORDERED: Oxycodone/Acetaminophen 5/325 mg Tab PO STA (21:33)
[2018-02-25 22:06] VITALS: BP 130/82; O2SAT 99
--- NOTE | 2018-02-26 10:29 | CT ---
Date of service: 02/25/2018 PROCEDURE: CT Abdomen and Pelvis with contrast HISTORY: L flank pain, ?pyelo COMPARISON: 07/26/2017 CT TECHNIQUE: Contrast dose: 100 cc of Omni 350 Radiation dose: Total exam DLP = 418 mGy-cm. This CT exam was performed using one or more of the following dose reduction techniques: Automated exposure control, adjustment of the mA and/or kV according to patient size, and/or use of iterative reconstruction technique. FINDINGS: LOWER THORAX: Unremarkable. LIVER: Unremarkable. No gross lesion or ductal dilatation. GALLBLADDER AND BILE DUCTS: Unremarkable. PANCREAS: Unremarkable. No gross lesion or ductal dilatation. SPLEEN: Unremarkable. ADRENALS: There is a 2 cm right adrenal mass that is unchanged. KIDNEYS AND URETERS: Minimal perinephric stranding which is chronic VASCULATURE: Unremarkable. No aortic aneurysm. BOWEL: Unremarkable. No obstruction. No gross mural thickening. APPENDIX: Normal appendix. PERITONEUM: Unremarkable. No free fluid. No free air. Small umbilical hernia LYMPH NODES: Unremarkable. No enlarged lymph nodes. BLADDER: Unremarkable. REPRODUCTIVE: Unremarkable. BONES: No acute fracture. OTHER FINDINGS: The report concurs with the preliminary [facility] report IMPRESSION: Minimal perinephric stranding which is chronic
--- NOTE | 2018-02-27 08:22 | CARD ---
APPROVED REPORT Date of service: 02/25/2018 EKG Measurement Heart [id number] <Conclusion> Normal sinus rhythm Normal ECG
== END 2018-02-25 22:04 | disposition home or self-care (01) ==
LOC: ED 16:33
DX: N39.0 Urinary tract infection, site not specified (principal); R31.9 Hematuria, unspecified; I10 Essential (primary) hypertension; E11.9 Type 2 diabetes mellitus without complications; F17.210 Nicotine dependence, cigarettes, uncomplicated
CPT/HCPCS: 74177; 80053; 81001; 83690; 84443; 84484; 85025; 87086; 96360; 99283; J7030; Q9967

== ENCOUNTER 2018-07-25 10:22 | Emergency (ER) | payer MEDICAID ==
[2018-07-25 10:40] VITALS: BMI 25.7
[2018-07-25 10:46] VITALS: BP 147/95; PULSE 96; RESP 16; TEMP 97.3; O2SAT 98
--- NOTE | 2018-07-25 11:01 | ED PDOC ---
Arrival/HPI - General Chief Complaint: Dental Pain Time Seen by Provider: 07/25/18 10:39 Historian: Patient - History of Present Illness Narrative History of Present Illness (Text): 07/25/18 10:54 A 47 year old male, with no significant past medical history, presents to the emergency department with a complaint of right sided toothache and left sided flank pain. The patient reports that he was seen by his dentist a few months ago for the toothache. He reports feeling better after receiving treatment. He sates that he developed the tooth pain over the past few days with mild swelling. Patient also complains of left sided flank pain for the past 1.5 weeks. He reports foul odor to his urine. Patient states that he has experienced these symptoms in the past for previous UTIs. The patient denies fevers, chills, headache, dizziness, chest pain, shortness of breath, dyspnea on exertion, cough, abdominal pain, nausea, vomiting, diarrhea, back pain, neck pain, urinary/bowel changes, or any other complaint. Time/Duration: Other (Several Days) Symptom Onset: Sudden Symptom Course: Unchanged Activities at Onset: Rest, Light Context: Home Past Medical History - Provider Review Nursing Documentation Reviewed: Yes - Infectious Disease Hx of Infectious Diseases: None - Tetanus Immunization Tetanus Immunization: Unknown - Cardiac Hx Cardiac Disorders: Yes Hx Angina: Yes Hx Hypertension: Yes - Pulmonary Hx Respiratory Disorders: Yes Hx Chronic Obstructive Pulmonary Disease (COPD): Yes Hx Pneumonia: Yes - Neurological Hx Neurological Disorder: No - HEENT Hx HEENT Disorder: No - Renal Hx Renal Disorder: No - Endocrine/Metabolic Hx Endocrine Disorders: Yes Hx Diabetes Mellitus Type 2: Yes - Hematological/Oncological Hx Blood Disorders: No - Integumentary Hx Dermatological Disorder: No Other/Comment: right foot ulcer mrsa possibly - Musculoskeletal/Rheumatological Hx Musculoskeletal Disorders: Yes Hx Falls: Yes (3 months ago (Aug 2016)) Hx Unsteady Gait: Yes - Gastrointestinal Hx Gastrointestinal Disorders: No - Genitourinary/Gynecological Hx Genitourinary Disorders: No - Psychiatric Hx Psychophysiologic Disorder: Yes Hx Anxiety: Yes Hx Depression: Yes Hx Hallucinations: Yes Hx Substance Use: Yes - Surgical History Other/Comment: "left foot surgery" - Anesthesia Hx Anesthesia: Yes Hx Anesthesia Reactions: No Hx Malignant Hyperthermia: No - Suicidal Assessment Feels Threatened In Home Enviroment: No Family/Social History - Physician Review Nursing Documentation Reviewed: Yes Family/Social History: No Known Family HX Smoking Status: Heavy Smoker > 10 Cigarettes Daily Hx Alcohol Use: Yes Hx Substance Use: Yes Hx Substance Use Treatment: No Allergies/Home Meds Allergies/Adverse Reactions: Allergies No Known Allergies Allergy (Verified 12/27/16 01:50) Home Medications: Home Meds Medication Instructions Recorded Confirmed Alprazolam [Xanax] 2 mg PO DAILY PRN 07/26/17 02/25/18 Lisinopril [Zestril] 25 mg PO DAILY 07/26/17 02/25/18 Oxycodone HCl [Oxycontin] 10 mg PO PRN PRN 07/26/17 02/25/18 metFORMIN [glucOPHAGE] 850 mg PO BID 07/26/17 02/25/18 Gabapentin [Neurontin] 1 cap PO BID 02/25/18 02/25/18 Review of Systems - Physician Review All systems were reviewed & negative as marked: Yes - Review of Systems Cardiovascular: absent: Chest Pain Gastrointestinal: absent: Abdominal Pain Physical Exam - Physical Exam Narrative Physical Exam (Text): 07/25/18 11:05 Constitutional: No acute distress. Head: Normocephalic. Atraumatic. Eyes: PERRL. ENT: Moist mucous membranes. Poor dentition. Mild edema without tenderness to right cheek. Uvula midline. Neck: Supple. Cardiovascular: Regular rate. Chest: No tenderness. Respiratory: Clear to auscultation bilaterally. GI: Soft. Nontender. Nondistended. Back: No CVA tenderness. Musculoskeletal: No tenderness or swelling of extremities. Skin: No rash. Neurologic: Alert, no focal deficit. Vital Signs Reviewed: Yes Vital Signs Temp Pulse Resp BP Pulse Ox 07/25/18 10:40 97.3 F L 96 H 16 147/95 H 98 Temperature: Hypothermic Blood Pressure: Hypertensive Pulse: Tachycardic Respiratory Rate: Normal Appearance: Positive for: Well-Appearing, Non-Toxic, Comfortable Pain Distress: None Mental Status: Positive for: Alert and Oriented X 3 Medical Decision Making ED Course and Treatment: 07/25/18 11:07 Impression: A 47 year old male presents to the emergency department with a complaint of right sided toothache and left sided flank pain. Plan: -- Urinalysis -- Urine Culture -- Toradol -- Reassess and disposition Progress Notes: Checked previous UTI culture, shows E coli which was sensitive to Zosyn. Will treat with Augmentin. - Lab Interpretations I have reviewed the lab results: Yes - Scribe Statement The provider has reviewed the documentation as recorded by the Scribe No Guy Provider Scribe Attestation: All medical record entries made by the Scribe were at my direction and personally dictated by me. I have reviewed the chart and agree that the record accurately reflects my personal performance of the history, physical exam, medical decision making, and the department course for this patient. I have also personally directed, reviewed, and agree with the discharge instructions and disposition. Disposition/Present on Arrival - Present on Arrival Any Indicators Present on Arrival: No History of DVT/PE: No History of Uncontrolled Diabetes: No Urinary Catheter: No History of Decub. Ulcer: No History Surgical Site Infection Following: None - Disposition Have Diagnosis and Disposition been Completed?: Yes Diagnosis: Pain, dental, UTI (urinary tract infection) Disposition: HOME/ ROUTINE Disposition Time: 11:22 Patient Plan: Discharge Condition: STABLE Discharge Instructions (ExitCare): Dental Pain (DC), Urinary Tract Infection, Adult (DC) Additional Instructions: Follow up with your dentist. Referrals: Willy Singh MD [Primary Care Provider] - Follow up with primary Forms: [employer] ([place])
[2018-07-25 11:05] LABS: URINE BILIRUBIN NEGATIVE (NEGATIVE); URINE BLOOD SMALL (NEGATIVE); URINE GLUCOSE (UA) 500 mg/dL (NEGATIVE); URINE LEUKOCYTE ESTERASE NEGATIVE Leu/uL (NEGATIVE); URINE PROTEIN TRACE mg/dL (<30 mg/dL); URINE UROBILINOGEN 0.2 E.U./dL (<1 E.U./dL)
[2018-07-25 11:11] LABS: URINE APPEARANCE CLEAR (CLEAR); URINE COLOR YELLOW (YELLOW)
[2018-07-25 11:14] LABS: URINE BACTERIA LARGE /hpf
[2018-07-25] MEDS ORDERED: Amoxicillin-Clav 875-125 mg Tab PO STA (11:21)
== END 2018-07-25 11:40 | disposition home or self-care (01) ==
LOC: ED 10:22
DX: K08.89 Other specified disorders of teeth and supporting structures (principal); N39.0 Urinary tract infection, site not specified; I10 Essential (primary) hypertension; F17.210 Nicotine dependence, cigarettes, uncomplicated
CPT/HCPCS: 81001; 87086; 87181; 96372; 99282; J1885

== ENCOUNTER 2018-08-27 16:42 | Emergency (ER) | payer MEDICARE, MEDICAID ==
[2018-08-27 16:42] VITALS: BMI 25.7
[2018-08-27 17:20] LABS: BASO # 0.05 K/mm3 (0.0-2.0); BASO % 0.4 % (0.0-3.0); EOS # 0.2 (0.0-0.7); EOS % 1.5 % (1.5-5.0); HEMOGLOBIN 12.9 g/dL (14.0-18.0); LYMPH # 2.5 (1.2-3.4); LYMPH % 20.1 % (22.0-35.0); MEAN CELL VOLUME 82.1 fl (80.0-105.0); MEAN CORPUSCULAR HEMOGLOBIN 28.2 pg (25.0-35.0); MEAN CORPUSCULAR HGB CONC 34.4 g/dl (31.0-37.0); MEAN PLATELET VOLUME 9.9 fl (7.0-11.0); MONO # 0.8 (0.1-0.6); MONO % 6.2 % (1.0-6.0); RBC 4.57 10^6/uL (3.5-6.1); RED CELL DISTRIBUTION WIDTH 12.5 % (11.5-14.5); WHITE BLOOD COUNT 12.6 10^3/uL (4.5-11.0)
[2018-08-27 17:33] LABS: ALB/GLOB RATIO 1.4 (1.1-1.8); ALBUMIN 4.5 g/dL (3.0-4.8); ALT/SGPT 33 U/L (7-56); AST/SGOT 34 U/L (17-59); BLOOD UREA NITROGEN 15 mg/dL (7-21); CALCIUM 9.6 mg/dL (8.4-10.5); GFR NON-AFRICAN AMERICAN > 60
[2018-08-27 17:39] LABS: B-TYPE NATRIURETIC PEPTIDE 104 pg/mL (0-450); TROPONIN I < 0.01 ng/mL
[2018-08-27 17:45] LABS: INR 0.95; PARTIAL THROMBOPLASTIN TIME 32.3 Seconds (26.9-38.3); PROTHROMBIN TIME 10.6 SECONDS (9.4-12.5)
[2018-08-27 17:47] LABS: D DIMER < 200 ng/mlDDU (0-243)
--- NOTE | 2018-08-27 17:48 | ED PDOC ---
Arrival/HPI - General Chief Complaint: Chest Pain Historian: Patient - History of Present Illness Narrative History of Present Illness (Text): 08/27/18 17:24 48M w/ h/o substance abuse, HTN, current smoker presenting to the Emergency Room for chest pain that began today. The patient states he was previously shoveling snow in his driveway and noted chest pressure and heaviness when he went back inside to rest. He reports shortness of breath as well and right leg numbness. He denies taking any medications for the pain and reports the chest pain as res olve upon arrival to the Emergency Room. He denies dizziness, syncopal epiosdes, emesis, fever, abdominal pain, back pain or arm pain. Time/Duration: Prior to Arrival Symptom Onset: Sudden Symptom Course: Resolved Quality: Aching Activities at Onset: Rest Context: Home Past Medical History - Provider Review Nursing Documentation Reviewed: Yes - Travel History Have you recently traveled outside [place] w/in the past 3 mons?: No - Infectious Disease Hx of Infectious Diseases: None - Tetanus Immunization Tetanus Immunization: Unknown - Cardiac Hx Cardiac Disorders: Yes Hx Angina: Yes Hx Hypertension: Yes - Pulmonary Hx Respiratory Disorders: Yes Hx Chronic Obstructive Pulmonary Disease (COPD): Yes Hx Pneumonia: Yes - Neurological Hx Neurological Disorder: No - HEENT Hx HEENT Disorder: No - Renal Hx Renal Disorder: No - Endocrine/Metabolic Hx Endocrine Disorders: Yes Hx Diabetes Mellitus Type 2: Yes - Hematological/Oncological Hx Blood Disorders: No - Integumentary Hx Dermatological Disorder: No Other/Comment: right foot ulcer mrsa possibly - Musculoskeletal/Rheumatological Hx Musculoskeletal Disorders: Yes Hx Falls: Yes (3 months ago (Aug 2016)) Hx Unsteady Gait: Yes - Gastrointestinal Hx Gastrointestinal Disorders: No - Genitourinary/Gynecological Hx Genitourinary Disorders: No - Psychiatric Hx Psychophysiologic Disorder: Yes Hx Anxiety: Yes Hx Depression: Yes Hx Hallucinations: Yes Hx Substance Use: Yes - Surgical History Other/Comment: "left foot surgery" - Anesthesia Hx Anesthesia: Yes Hx Anesthesia Reactions: No Hx Malignant Hyperthermia: No - Suicidal Assessment Feels Threatened In Home Enviroment: No Family/Social History - Physician Review Nursing Documentation Reviewed: Yes Family/Social History: Unknown Family HX Smoking Status: Heavy Smoker > 10 Cigarettes Daily Hx Alcohol Use: Yes Hx Substance Use: Yes Hx Substance Use Treatment: No Allergies/Home Meds Allergies/Adverse Reactions: Allergies No Known Allergies Allergy (Verified 12/27/16 01:50) Home Medications: Home Meds Medication Instructions Recorded Confirmed Alprazolam [Xanax] 2 mg PO DAILY PRN 07/26/17 02/25/18 Lisinopril [Zestril] 25 mg PO DAILY 07/26/17 02/25/18 Oxycodone HCl [Oxycontin] 10 mg PO PRN PRN 07/26/17 02/25/18 metFORMIN [glucOPHAGE] 850 mg PO BID 07/26/17 02/25/18 Gabapentin [Neurontin] 1 cap PO BID 02/25/18 02/25/18 Review of Systems - Physician Review All systems were reviewed & negative as marked: Yes - Review of Systems Respiratory: SOB Cardiovascular: Chest Pain Physical Exam Vital Signs Reviewed: Yes Temperature: Afebrile Blood Pressure: Normal Pulse: Regular Respiratory Rate: Normal Appearance: Positive for: Well-Appearing, Non-Toxic, Comfortable Mental Status: Positive for: Alert and Oriented X 3 - Systems Exam Head: Present: Atraumatic, Normocephalic Pupils: Present: PERRL Extroacular Muscles: Present: EOMI Conjunctiva: Present: Normal Mouth: Present: Moist Mucous Membranes Neck: Present: Normal Range of Motion Respiratory/Chest: Present: Clear to Auscultation, Good Air Exchange. No: Respiratory Distress Cardiovascular: Present: Regular Rate and Rhythm, Normal S1, S2 Abdomen: Present: Normal Bowel Sounds. No: Tenderness, Distention Upper Extremity: Present: Normal Inspection. No: Edema Lower Extremity: Present: Normal Inspection. No: Edema Neurological: Present: GCS=15, Speech Normal Skin: Present: Warm, Dry, Normal Color, Other (Keloid noted to chest area). No: Rashes Psychiatric: Present: Alert, Oriented x 3, Normal Insight, Normal Concentration Medical Decision Making ED Course and Treatment: 08/27/18 18:17 Impression 48M w/ h/o substance abuse presenting with chest pain Differential Diagnoses Include But Are Not Limited To: --ACS --Bronchitis --PNA Plan --Labs --IV Fluids --Urinalysis --IV fluids --Insulin --Urine drug screen --Reassess & disposition Progress Notes 08/27/18 19:00 Labs reviewed with negative troponin and unremarkable CXR. Elevated glucose to 300s noted without anion gap. Fluids and insulin given. 08/27/18 20:19 Recheck of blood sugar at 246. Patient advised to continue checking his blood sugars and to follow up with his PCP. He is advised to continue monitoring his symptoms and to return to the Emergency Room should symptoms return. - Lab Interpretations Lab Results: 08/27/18 17:00 08/27/18 17:00 Lab Results 08/27/18 17:00: PT 10.6, INR 0.95, APTT 32.3, D-Dimer, Quantitative < 200 08/27/18 17:00: Sodium 134, Potassium 3.9, Chloride 97 L, Carbon Dioxide 24, Anion Gap 17, BUN 15, Creatinine 0.9, Est GFR ( Amer) > 60, Est GFR (Non- Af Amer) > 60, Random Glucose 317 H* D, Calcium 9.6, Magnesium 1.8, Total Bili dawn 0.3, AST 34, ALT 33, Alkaline Phosphatase 112, Troponin I < 0.01, NT-Pro-B Natriuret Pep 104, Total Protein 7.8, Albumin 4.5, Globulin 3.3, Albumin/Globulin Ratio 1.4 08/27/18 17:00: WBC 12.6 H, RBC 4.57, Hgb 12.9 L, Hct 37.5 L, MCV 82.1 D, MCH 28.2, MCHC 34.4, RDW 12.5, Plt Count 245, MPV 9.9, Neut % (Auto) 71.8 H, Lymph % (Auto) 20.1 L, Henry % (Auto) 6.2 H, Eos % (Auto) 1.5, Baso % (Auto) 0.4, Lymph # (Auto) 2.5, Henry # (Auto) 0.8 H, Eos # (Auto) 0.2, Baso # (Auto) 0.05, Ab solute Neuts (auto) 9.07 H I have reviewed the lab results: Yes - RAD Interpretation Radiology Orders: 08/27/18 16:55 CHEST PORTABLE [RAD] Stat Disposition/Present on Arrival - Present on Arrival Any Indicators Present on Arrival: No History of DVT/PE: No History of Uncontrolled Diabetes: No Urinary Catheter: No History of Decub. Ulcer: No History Surgical Site Infection Following: None - Disposition Have Diagnosis and Disposition been Completed?: Yes Diagnosis: UTI (urinary tract infection), Hyperglycemia Disposition Time: 20:24 Patient Plan: Discharge Condition: IMPROVED Discharge Instructions (ExitCare): Urinary Tract Infection, Adult (DC), Hyp erglycemia, Adult (DC) Print Language: SAO TOMEAN Additional Instructions: Please take antibiotics as prescribed Follow up with your PCP in 1 week Prescriptions: Sulfamethoxazole/Trimethoprim [Bactrim DS 800 mg-160 mg] 1 tab PO BID 7 Days #14 tab Referrals: Bianca Camp MD [Medical Doctor] - Follow up with primary [facility] [place] [Outside] - Follow up with primary Forms: [facility] ([place]), WORK NOTE
[2018-08-27 18:56] LABS: URINE BILIRUBIN NEGATIVE (NEGATIVE); URINE BLOOD MODERATE (NEGATIVE); URINE GLUCOSE (UA) >=1000 mg/dL (NEGATIVE); URINE LEUKOCYTE ESTERASE NEGATIVE Leu/uL (NEGATIVE); URINE PROTEIN 30 mg/dL (<30 mg/dL); URINE UROBILINOGEN 0.2 E.U./dL (<1 E.U./dL)
[2018-08-27 19:00] LABS: URINE APPEARANCE CLOUDY (CLEAR); URINE COLOR YELLOW (YELLOW)
[2018-08-27 19:03] LABS: URINE WBC 25 - 30 /hpf (0-6)
[2018-08-27] MEDS ORDERED: cefTRIAXone 1 gm 1 GM/100 ML BAG IVPB STA (19:03)
[2018-08-27 19:04] LABS: URINE BACTERIA MANY /hpf
[2018-08-27 19:28] LABS: BARBITURATES, UR NEGATIVE (NEGATIVE); BENZODIAZEPINES, UR NEGATIVE (NEGATIVE); OPIATES, UR POSITIVE (NEGATIVE); PHENCYCLIDINE, UR NEGATIVE (NEGATIVE)
[2018-08-27 20:46] VITALS: BP 131/76; PULSE 68; RESP 16; O2SAT 100
--- NOTE | 2018-08-27 23:07 | CARD ---
APPROVED REPORT Date of service: 08/27/2018 EKG Measurement Heart [id number] <Conclusion> Normal sinus rhythm Normal ECG
--- NOTE | 2018-08-28 10:12 | RAD ---
Date of service: 08/27/2018 HISTORY: Chest pain COMPARISON: 01/11/2017 FINDINGS: LUNGS: No active pulmonary disease. PLEURA: No significant pleural effusion identified, no pneumothorax apparent. CARDIOVASCULAR: No aortic atherosclerotic calcification present. Normal cardiac size. No pulmonary vascular congestion. OSSEOUS STRUCTURES: No significant abnormalities. VISUALIZED UPPER ABDOMEN: Normal. OTHER FINDINGS: None. IMPRESSION: No active disease.
== END 2018-08-27 20:45 | disposition home or self-care (01) ==
LOC: ED 16:42
DX: E11.65 Type 2 diabetes mellitus with hyperglycemia (principal); N39.0 Urinary tract infection, site not specified; I10 Essential (primary) hypertension; J44.9 Chronic obstructive pulmonary disease, unspecified; F17.210 Nicotine dependence, cigarettes, uncomplicated; F19.10 Other psychoactive substance abuse, uncomplicated
CPT/HCPCS: 71045; 80053; 81001; 82948; 83735; 83880; 84484; 85025; 85378; 85610; 85730; 87086; 93005; 96365; 99284; G0480; J0696

== ENCOUNTER 2018-08-30 11:35 | Emergency (ER) | payer MEDICARE, MEDICAID ==
[2018-08-30 11:44] VITALS: BMI 26.3
[2018-08-30 11:48] VITALS: RESP 17; TEMP 97.3; O2SAT 99
[2018-08-30] MEDS ORDERED: Aspirin 325 mg EC Tablets PO STA (11:54)
--- NOTE | 2018-08-30 11:59 | ED PDOC ---
Arrival/HPI - General Chief Complaint: Chest Pain Time Seen by Provider: 08/30/18 11:44 Historian: Patient - History of Present Illness Time/Duration: Other (this morning) Symptom Course: Unchanged Quality: Aching Severity Level: Mild Associated Symptoms (Text): 08/30/18 11:56 Patient reports that he woke up this morning with dizziness and lightheadedness along with right-sided chest pain and shortness of breath. He was seen in the emergency department several days ago for chest pain and discharged. He is a heavy smoker and diabetic. No history of cardiac disease. No injury or trauma. He does report that the pain is worse with deep breathing. Past Medical History - Infectious Disease Hx of Infectious Diseases: None - Tetanus Immunization Tetanus Immunization: Unknown - Cardiac Hx Cardiac Disorders: Yes Hx Angina: Yes Hx Hypertension: Yes - Pulmonary Hx Respiratory Disorders: Yes Hx Chronic Obstructive Pulmonary Disease (COPD): Yes Hx Pneumonia: Yes - Neurological Hx Neurological Disorder: No - HEENT Hx HEENT Disorder: No - Renal Hx Renal Disorder: No - Endocrine/Metabolic Hx Endocrine Disorders: Yes Hx Diabetes Mellitus Type 2: Yes - Hematological/Oncological Hx Blood Disorders: No - Integumentary Hx Dermatological Disorder: No Other/Comment: right foot ulcer mrsa possibly - Musculoskeletal/Rheumatological Hx Musculoskeletal Disorders: Yes Hx Falls: Yes (3 months ago (Aug 2016)) Hx Unsteady Gait: Yes - Gastrointestinal Hx Gastrointestinal Disorders: No - Genitourinary/Gynecological Hx Genitourinary Disorders: No - Psychiatric Hx Psychophysiologic Disorder: Yes Hx Anxiety: Yes Hx Depression: Yes Hx Hallucinations: Yes Hx Substance Use: Yes - Surgical History Other/Comment: "left foot surgery" - Anesthesia Hx Anesthesia: Yes Hx Anesthesia Reactions: No Hx Malignant Hyperthermia: No - Suicidal Assessment Feels Threatened In Home Enviroment: No Family/Social History - Physician Review Nursing Documentation Reviewed: Yes Family/Social History: Unknown Family HX Smoking Status: Heavy Smoker > 10 Cigarettes Daily Hx Alcohol Use: Yes Frequency of alcohol use: Daily Hx Substance Use: Yes Hx Substance Use Treatment: No Allergies/Home Meds Allergies/Adverse Reactions: Allergies No Known Allergies Allergy (Verified 12/27/16 01:50) Home Medications: Home Meds Medication Instructions Recorded Confirmed Alprazolam [Xanax] 2 mg PO DAILY PRN 07/26/17 08/30/18 Lisinopril [Zestril] 25 mg PO DAILY 07/26/17 08/30/18 metFORMIN [glucOPHAGE] 850 mg PO BID 07/26/17 08/30/18 Review of Systems - Physician Review All systems were reviewed & negative as marked: Yes - Review of Systems Constitutional: absent: Fatigue, Fevers Respiratory: SOB. absent: Cough Cardiovascular: Chest Pain. absent: Palpitations, Syncope Gastrointestinal: absent: Abdominal Pain, Nausea, Vomiting Neurological: Dizziness. absent: Headache, Focal Weakness Physical Exam Vital Signs Temp Pulse Pulse Resp BP Pulse Ox 08/30/18 11:48 101 H 08/30/18 11:43 97.3 F L 100 H 17 168/93 H 99 Temperature: Afebrile Blood Pressure: Hypertensive Pulse: Regular Respiratory Rate: Normal Appearance: Positive for: Well-Appearing, Non-Toxic, Uncomfortable Pain Distress: Mild Mental Status: Positive for: Alert and Oriented X 3 Finger Stick Blood Glucose: 315 - Systems Exam Head: Present: Atraumatic, Normocephalic Pupils: Present: PERRL Extroacular Muscles: Present: EOMI Conjunctiva: Present: Normal Mouth: Present: Moist Mucous Membranes Pharnyx: No: ERYTHEMA, EXUDATE, TONSILS ENLARGED Neck: Present: Normal Range of Motion Respiratory/Chest: Present: Clear to Auscultation, Good Air Exchange, Decreased Breath Sounds. No: Respiratory Distress, Accessory Muscle Use, Tender to Palpation Cardiovascular: Present: Regular Rate and Rhythm, Normal S1, S2. No: Murmurs Abdomen: No: Tenderness, Distention, Peritoneal Signs, Rebound, Guarding Back: Present: Normal Inspection Upper Extremity: Present: Normal Inspection. No: Cyanosis, Edema Lower Extremity: Present: Normal Inspection. No: Edema Neurological: Present: GCS=15, CN II-XII Intact, Speech Normal, Motor Func Grossly Intact Skin: Present: Warm, Dry, Normal Color. No: Rashes Psychiatric: Present: Alert, Oriented x 3, Normal Insight, Normal Concentration Medical Decision Making ED Course and Treatment: 08/30/18 13:32 EKG shows normal sinus rhythm rate approximately 95 with elevated J-point and nonspecific T changes and ST depressions different from the EKG of 08/27/2018 - RAD Interpretation Radiology Orders: 08/30/18 11:54 CHEST PORTABLE [RAD] Stat Chest one view shows no infiltrate effusion or cardiomegaly. Pressure Tester: ED Physician - Medication Orders Current Medication Orders: Aspirin (Ecotrin) 325 mg PO STAT STA Stop: 08/30/18 11:55 Disposition/Present on Arrival - Present on Arrival Any Indicators Present on Arrival: No History of DVT/PE: No History of Uncontrolled Diabetes: No Urinary Catheter: No History of Decub. Ulcer: No History Surgical Site Infection Following: None - Disposition Have Diagnosis and Disposition been Completed?: Yes Diagnosis: Diabetes mellitus, Chest pain, Dizziness, Hypertension Disposition: HOSPITALIZED Disposition Time: 13:37 Patient Plan: Observation, Telemetry Condition: FAIR Discharge Instructions (ExitCare): Chest Pain (ED) Forms: [facility] (Welsh)
[2018-08-30 12:29] LABS: BASO # 0.04 K/mm3 (0.0-2.0); BASO % 0.4 % (0.0-3.0); EOS # 0.2 (0.0-0.7); EOS % 1.8 % (1.5-5.0); HEMOGLOBIN 12.9 g/dL (14.0-18.0); LYMPH # 2.5 (1.2-3.4); LYMPH % 22.7 % (22.0-35.0); MEAN CELL VOLUME 81.8 fl (80.0-105.0); MEAN CORPUSCULAR HEMOGLOBIN 27.9 pg (25.0-35.0); MEAN CORPUSCULAR HGB CONC 34.1 g/dl (31.0-37.0); MEAN PLATELET VOLUME 11.1 fl (7.0-11.0); MONO # 0.7 (0.1-0.6); MONO % 6.2 % (1.0-6.0); RBC 4.62 10^6/uL (3.5-6.1); RED CELL DISTRIBUTION WIDTH 12.7 % (11.5-14.5); WHITE BLOOD COUNT 10.9 10^3/uL (4.5-11.0)
[2018-08-30 12:35] LABS: INR 0.95; PROTHROMBIN TIME 10.7 SECONDS (9.4-12.5)
[2018-08-30 12:45] LABS: D DIMER < 200 ng/mlDDU (0-243)
--- NOTE | 2018-08-30 12:57 | RAD ---
Date of service: 08/30/2018 HISTORY: cp COMPARISON: 08/27/2018 FINDINGS: LUNGS: The lungs are well inflated and clear. PLEURA: No pleural effusions or pneumothorax. CARDIOVASCULAR: The heart is normal in size. No aortic atherosclerotic calcifications present. OSSEOUS STRUCTURES: Within normal limits for the patient's age. VISUALIZED UPPER ABDOMEN: Normal. OTHER FINDINGS: None. IMPRESSION: No active pulmonary disease.
--- NOTE | 2018-08-30 13:09 | CP.PCM.HP ---
<JamesJuyanna - Last Filed: 08/30/18 14:16> History of Present Illness - History of Present Illness History of Present Illness: PGY1 Medicine History and Physical Exam Note for Dr. Kelly Patient is a 48-year-old M with PMH HTN, DM, diabetic foot ulcer, left foot osteomyelitis who presents with chest pain x 1 hour ago. Patient reports that he woke up this morning with dizziness and lightheadedness along with right-sided chest pain and shortness of breath that lasted 1-2 minutes. Patient describes the pain as crampy and rates it at 7/10 in severity. Patient was seen in the emergency department several days ago for chest pain and discharged. Patient admits to associated nausea. ROS otherwise unremarkable for vomiting, dizziness, abdominal pain, headache, leg pain, leg edema, rash, fever, and/or chills. PMHx: hypertension, diabetes, diabetic foot ulcer, left foot osteomyelitis PSHx: hernia repair, tracheostomy Allergy: KNDA Social hx: drinks alcohol 3 days out of a week, admits to tobacco smoking 1/2 PPD for 20 years, and cocaine use Family hx: Diabetes Mellitus Medications: - Xanax 2mg PO daily PRN - Zestril 25mg PO daily - Metformin 850mg PO BID PMD: Dr. Sousa Podiatry: Dr. Azul Pharmacy: [facility] Present on Admission - Present on Admission Any Indicators Present on Admission: No History of DVT/PE: No History of Uncontrolled Diabetes: No Urinary Catheter: No Decubitus Ulcer Present: No Review of Systems - Review of Systems All systems: reviewed and no additional remarkable complaints except Review of Systems: as mentioned in HPI Past Patient History - Infectious Disease Hx of Infectious Diseases: None - Tetanus Immunizations Tetanus Immunization: Unknown - Past Social History Smoking Status: Heavy Smoker > 10 Cigarettes Daily - CARDIAC Hx Cardiac Disorders: Yes Hx Angina: Yes Hx Hypertension: Yes - PULMONARY Hx Respiratory Disorders: Yes Hx Chronic Obstructive Pulmonary Disease (COPD): Yes Hx Pneumonia: Yes - NEUROLOGICAL Hx Neurological Disorder: No - HEENT Hx HEENT Problems: No - RENAL Hx Chronic Kidney Disease: No - ENDOCRINE/METABOLIC Hx Endocrine Disorders: Yes Hx Diabetes Mellitus Type 2: Yes - HEMATOLOGICAL/ONCOLOGICAL Hx Blood Disorders: No - INTEGUMENTARY Hx Dermatological Problems: No Other/Comment: right foot ulcer mrsa possibly - MUSCULOSKELETAL/RHEUMATOLOGICAL Hx Musculoskeletal Disorders: Yes Hx Falls: Yes (3 months ago (Aug 2016)) Hx Unsteady Gait: Yes - GASTROINTESTINAL Hx Gastrointestinal Disorders: No - GENITOURINARY/GYNECOLOGICAL Hx Genitourinary Disorders: No - PSYCHIATRIC Hx Psychophysiologic Disorder: Yes Hx Anxiety: Yes Hx Depression: Yes Hx Hallucinations: Yes Hx Substance Use: Yes - SURGICAL HISTORY Other/Comment: "left foot surgery" - ANESTHESIA Hx Anesthesia: Yes Hx Anesthesia Reactions: No Hx Malignant Hyperthermia: No Meds Allergies/Adverse Reactions: Allergies Allergy/AdvReac Type Severity Reaction Status Date / Time No Known Allergies Allergy Verified 12/27/16 01:50 Physical Exam - Constitutional Appears: Non-toxic, No Acute Distress - Head Exam Head Exam: ATRAUMATIC, NORMAL INSPECTION, NORMOCEPHALIC - Eye Exam Eye Exam: EOMI, Normal appearance, PERRL Pupil Exam: NORMAL ACCOMODATION - ENT Exam ENT Exam: Mucous Membranes Moist, Normal Exam - Neck Exam Neck exam: Positive for: Normal Inspection - Respiratory Exam Respiratory Exam: Clear to Auscultation Bilateral, NORMAL BREATHING PATTERN. absent: Accessory Muscle Use, Prolonged Expiratory Phase, Rales, Rhonchi, Wheezes, Respiratory Distress, Stridor - Cardiovascular Exam Cardiovascular Exam: Tachycardia, +S1, +S2. absent: Gallop, Systolic Murmur - GI/Abdominal Exam GI & Abdominal Exam: Normal Bowel Sounds, Soft. absent: Rebound, Rigid, Tenderness - Extremities Exam Extremities exam: Positive for: full ROM, normal inspection - Back Exam Back exam: NORMAL INSPECTION - Neurological Exam Neurological exam: Alert, CN II-XII Intact, Oriented x3, Reflexes Normal - Psychiatric Exam Psychiatric exam: Normal Affect, Normal Mood Results - Vital Signs Recent Vital Signs: Last Vital Signs Temp 97.3 F L 08/30/18 11:43 Pulse 101 H 08/30/18 11:48 Resp 17 08/30/18 11:43 BP 168/93 H 08/30/18 11:43 Pulse Ox 99 08/30/18 11:43 - Labs Result Diagrams: 08/30/18 12:05 08/30/18 12:45 Labs: Laboratory Results - last 24 hr 08/30/18 08/30/18 08/30/18 12:05 12:05 12:05 WBC 10.9 RBC 4.62 Hgb 12.9 L Hct 37.8 L MCV 81.8 MCH 27.9 MCHC 34.1 RDW 12.7 Plt Count 279 MPV 11.1 H Neut % (Auto) 68.9 H Lymph % (Auto) 22.7 Norman % (Auto) 6.2 H Eos % (Auto) 1.8 Baso % (Auto) 0.4 Lymph # (Auto) 2.5 Norman # (Auto) 0.7 H Eos # (Auto) 0.2 Baso # (Auto) 0.04 Absolute Neuts (auto) 7.54 H PT 10.7 INR 0.95 APTT 27.0 D-Dimer, Quantitative < 200 Alcohol, Quantitative < 10 Assessment & Plan - Assessment and Plan (Free Text) Assessment: Patient is a 48-year-old M with PMH HTN, DM, diabetic foot ulcer, left foot osteomyelitis who presents with chest pain x 1 hour ago. Patient reports that he woke up this morning with dizziness and lightheadedness along with right-sided chest pain and shortness of breath that lasted 1-2 minutes. Please note Patient requested to sign out AGAINST MEDICAL ADVICE. This action is against my medical advice to the patient and the decision was made with informed refusal. The patient was told that further workup is necessary and a full explanation of the rationale was given. The risks of leaving were explained to the patient and include but are not limited to increased morbidity and mortality, , and worsening of known or unknown conditions. Patient was AAOX3 and was able to make this informed decision and understood the clinical situation and my explanation of the risks of leaving. The patient voluntarily accepted these risks and signed an AMA form documenting our conversation. The patient was given the opportunity ask questions and reconsider. The patient was encouraged to return to emergency room at any time for further care. He was advised to follow-up with his primary care doctor as soon as possible. Chest Pain, Rule-Out ACS - CXR: no active pulmonary disease - F/U BNP - ETOH negative - ASA loading dose administered - ASA 81mg daily starting tomorrow - F/U HgbA1C - EKG: Sinus tachycardia, non-specific T-wave changes in lead 3 - F/U ECHO - Troponin Q6H ordered History of Diabetes Mellitus - Accuchecks - ISS- moderate - Hypoglycemic protocol - F/U HbGA1C - Urinalysis History of HTN - Continued home medications: Lisinopril - F/U lipid panel - Monitor Vitals Tobacco / Cocaine Use Disorder - Smoking Cessation encouraged - Hold Nicotine patch Prophylactic Measures - GI PPX: Not indicated at this time - DVT PPX: Lovenox 40mg SC daily, SCDs - Consistent HHD Patient seen and case discussed in detail with Dr. Robin Ramirez PGY1 <Ck Kelly - Last Filed: 08/31/18 14:51> Results - Vital Signs Recent Vital Signs: Last Vital Signs Temp 97.3 F L 08/30/18 11:43 Pulse 93 H 08/30/18 13:59 Resp 17 08/30/18 13:59 BP 147/78 08/30/18 13:59 Pulse Ox 99 08/30/18 13:59 - Labs Result Diagrams: 08/30/18 12:05 08/30/18 12:45 Attending/Attestation - Attestation I have personally seen and examined this patient.: Yes I have fully participated in the care of the patient.: Yes I have reviewed all pertinent clinical information: Yes Notes (Text): 08/31/18 14:49 Medical record note made by the resident after discussion with my direction and input after the patient was personally seen and examined by me. I have reviewed the chart and agree that the record accurately reflects by personal performance of the history, physical exam, data review, and medical decision-making, in the course for the patient. I have also personally directed the plan of care. 48 yrs old male with PMH of HTN,Alcohol and drug abuse was admitted with chest pain. Patient was admitted to telemetry to rule out ACS and to monitor for alcohol withdrawal. Patient is alert,awake and oriented.He has signed against medical advice.The issue was discussed in detail with him.
[2018-08-30] MEDS ORDERED: Dextrose 50% SYRINGE Inj (50 ml) IV PRN (13:11)
[2018-08-30 13:19] LABS: B-TYPE NATRIURETIC PEPTIDE 61.8 pg/mL (0-450); TROPONIN I 0.02 ng/mL
[2018-08-30 13:36] LABS: ALB/GLOB RATIO 1.4 (1.1-1.8); ALBUMIN 4.3 g/dL (3.0-4.8); ALT/SGPT 24 U/L (7-56); AST/SGOT 26 U/L (17-59); BLOOD UREA NITROGEN 18 mg/dL (7-21); CALCIUM 9.9 mg/dL (8.4-10.5); GFR NON-AFRICAN AMERICAN > 60
[2018-08-30 13:59] VITALS: BP 147/78; PULSE 93
[2018-08-30 14:17] LABS: URINE BILIRUBIN NEGATIVE (NEGATIVE); URINE BLOOD TRACE-LYSED (NEGATIVE); URINE GLUCOSE (UA) >=1000 mg/dL (NEGATIVE); URINE LEUKOCYTE ESTERASE NEGATIVE Leu/uL (NEGATIVE); URINE PROTEIN NEGATIVE mg/dL (<30 mg/dL); URINE UROBILINOGEN 0.2 E.U./dL (<1 E.U./dL)
[2018-08-30 14:19] LABS: URINE APPEARANCE CLEAR (CLEAR); URINE COLOR YELLOW (YELLOW)
[2018-08-30 14:24] LABS: URINE BACTERIA TRACE /hpf; URINE EPITHELIAL CELLS 0 - 2 /hpf (0-5); URINE RBC 0 - 2 /hpf (0-2)
[2018-08-30] MEDS ORDERED: Insulin Regular 1 UNITS/0.01 ML ML SC SCH (16:30)
--- NOTE | 2018-08-30 18:12 | CARD ---
APPROVED REPORT Date of service: 08/30/2018 EKG Measurement Heart [id number] <Conclusion> Normal sinus rhythm ST elevation anterior leads of questionable significance T wave abnormality CCR Abnormal ECG
--- NOTE | 2018-08-30 18:59 | CARD ---
APPROVED REPORT Date of service: 08/30/2018 EXAM: Two-dimensional and M-mode echocardiogram with Doppler and color Doppler. INDICATION Chest Pain 2D DIMENSIONS Left Atrium (2D)4.2 (1.6-4.0cm)IVSd1.4 (0.7-1.1cm) LVDd4.6 (3.9-5.9cm)PWd1.4 (0.7-1.1cm) LVDs3.1 (2.5-4.0cm)FS (%) 33.8 % LVEF (%)62.7 (>50%) M-Mode DIMENSIONS Aortic Root3.70 (2.2-3.7cm)Aortic Cusp Exc.2.00 (1.5-2.0cm) Aortic Valve AoV Peak Maavpmzt705.0cm/Mercedes Peak GR.10mmHg Mitral Valve MV E Igvzidgg12.0cm/sMV A Olcgplgu97.7cm/sE/A ratio0.8 TDI Lateral E' Peak V9.26cm/sMedial E' Peak V7.02cm/sE/Lateral E'8.6 E/Medial E'11.4 Pulmonary Valve PV Peak Iksblrwl666.0cm/sPV Peak Grad.4mmHg Tricuspid Valve TR Peak Fxtvoubm214td/sRAP OGLPLTBV91peDfYO Peak Gr.22mmHg PDEA09dhZs LEFT VENTRICLE The left ventricle is normal size. There is mild concentric left ventricular hypertrophy. The left ventricular function is normal. The left ventricular ejection fraction is within the normal range. There is normal LV segmental wall motion. Transmitral Doppler flow pattern is Grade I-abnormal relaxation pattern. RIGHT VENTRICLE The right ventricle is normal size. There is normal right ventricular wall thickness. The right ventricular systolic function is normal. ATRIA The left atrium is borderline dilated. The right atrium size is normal. AORTIC VALVE The aortic valve is normal in structure. No aortic regurgitation is present. There is no aortic valvular stenosis. MITRAL VALVE The mitral valve is normal in structure. There is no mitral valve regurgitation noted. There is no mitral valve stenosis. TRICUSPID VALVE The tricuspid valve is normal in structure. There is mild tricuspid regurgitation. There is mild pulmonary hypertension. PULMONIC VALVE The pulmonary valve is normal in structure. There is no pulmonic valvular regurgitation. GREAT VESSELS The aortic root is normal in size. The IVC is normal in size and collapses >50% with inspiration. PERICARDIAL EFFUSION There is no pericardial effusion. <Conclusion> There is mild concentric left ventricular hypertrophy. The left ventricular function is normal. The left ventricular ejection fraction is within the normal range. There is normal LV segmental wall motion. Transmitral Doppler flow pattern is Grade I-abnormal relaxation pattern. There is mild tricuspid regurgitation. There is mild pulmonary hypertension.
[2018-08-31] MEDS ORDERED: Enoxaparin 40 mg Syringe SC SCH (10:00)
== END 2018-08-30 14:33 | disposition left against medical advice (07) ==
LOC: ED 11:35 → ERH 13:28 → UNDOADMOB 13:28 → ERH 13:48
DX: E11.9 Type 2 diabetes mellitus without complications (principal); I10 Essential (primary) hypertension; R42 Dizziness and giddiness; R07.9 Chest pain, unspecified
CPT/HCPCS: 71045; 80053; 81001; 82550; 83615; 83735; 83880; 84484; 85025; 85378; 85610; 85730; 93005; 93306; 99284; G0480

== ENCOUNTER 2018-11-08 03:18 | Emergency (ER) | payer MEDICAID, MEDICARE ==
[2018-11-08 03:18] VITALS: BMI 26.3
[2018-11-08 03:29] VITALS: RESP 18; TEMP 97.5
[2018-11-08] MEDS ORDERED: Alum-Mag Hydrox-Simethicone Susp (30 mL) PO STA (03:51)
[2018-11-08] MEDS ORDERED: Simethicone 80 mg Chewtab PO ONE (03:53)
--- NOTE | 2018-11-08 03:59 | ED PDOC ---
Arrival/HPI - General Historian: Patient - History of Present Illness Narrative History of Present Illness (Text): 11/08/18 03:56 Patient is a 48 year old male with past medical history of HTN, DM, diabetic foot ulcer, left foot osteomyelitis presenting with chief complaint of abdominal discomfort and bloating beginning a few hours prior. Patient states he has had approximately six drinks tonight, including beer and he notices he has bloating associated with beer intake. Discomfort is mainly in his epigastric region and described as a burning sensation. Denies fevers, chills, chest pain, shortness of breath, diarrhea, constipation, dysuria. Time/Duration: 4-6 hours Symptom Onset: Sudden Symptom Course: Unchanged Quality: Gas Like <Darleen Tyler - Last Filed: 11/08/18 05:25> <Benny Cardoza - Last Filed: 11/08/18 06:20> - General Chief Complaint: Abdominal Pain Time Seen by Provider: 11/08/18 03:37 Past Medical History - Provider Review Nursing Documentation Reviewed: Yes - Infectious Disease Hx of Infectious Diseases: None - Tetanus Immunization Tetanus Immunization: Unknown - Cardiac Hx Cardiac Disorders: Yes Hx Angina: Yes Hx Hypertension: Yes - Pulmonary Hx Respiratory Disorders: Yes Hx Chronic Obstructive Pulmonary Disease (COPD): Yes Hx Pneumonia: Yes - Neurological Hx Neurological Disorder: No - HEENT Hx HEENT Disorder: No - Renal Hx Renal Disorder: No - Endocrine/Metabolic Hx Endocrine Disorders: Yes Hx Diabetes Mellitus Type 2: Yes - Hematological/Oncological Hx Blood Disorders: No - Integumentary Hx Dermatological Disorder: No Other/Comment: right foot ulcer mrsa possibly - Musculoskeletal/Rheumatological Hx Musculoskeletal Disorders: Yes Hx Falls: Yes (Aug 2016) Hx Unsteady Gait: Yes - Gastrointestinal Hx Gastrointestinal Disorders: No - Genitourinary/Gynecological Hx Genitourinary Disorders: No - Psychiatric Hx Psychophysiologic Disorder: Yes Hx Anxiety: Yes Hx Depression: Yes Hx Hallucinations: Yes Hx Substance Use: Yes - Surgical History Other/Comment: "left foot surgery" - Anesthesia Hx Anesthesia: Yes Hx Anesthesia Reactions: No Hx Malignant Hyperthermia: No - Suicidal Assessment Feels Threatened In Home Enviroment: No <Darleen Tyler - Last Filed: 11/08/18 05:25> Family/Social History - Physician Review Nursing Documentation Reviewed: Yes Family/Social History: No Known Family HX Smoking Status: Light Smoker < 10 Cigarettes Daily Hx Alcohol Use: Yes Frequency of alcohol use: Socially Hx Substance Use: Yes Hx Substance Use Treatment: No <Darleen Tyler - Last Filed: 11/08/18 05:25> Allergies/Home Meds <Darleen Tyler - Last Filed: 11/08/18 05:25> <Benny Cardoza - Last Filed: 11/08/18 06:20> Allergies/Adverse Reactions: Allergies No Known Allergies Allergy (Verified 12/27/16 01:50) Home Medications: Home Meds Medication Instructions Recorded Confirmed Alprazolam [Xanax] 2 mg PO DAILY PRN 07/26/17 08/30/18 Lisinopril [Zestril] 25 mg PO DAILY 07/26/17 08/30/18 metFORMIN [glucOPHAGE] 850 mg PO BID 07/26/17 08/30/18 Review of Systems - Physician Review All systems were reviewed & negative as marked: Yes - Review of Systems Respiratory: Normal Cardiovascular: Normal Gastrointestinal: Abdominal Pain Genitourinary Male: Normal <Darleen Tyler - Last Filed: 11/08/18 05:25> Physical Exam Vital Signs Reviewed: Yes Vital Signs Temp Pulse Resp BP Pulse Ox 11/08/18 03:33 18 95 11/08/18 03:28 97.5 F L 105 H 18 165/95 H 95 Temperature: Afebrile Blood Pressure: Hypertensive Pulse: Tachycardic Respiratory Rate: Normal Appearance: Positive for: Well-Appearing, Non-Toxic, Comfortable Pain Distress: None Mental Status: Positive for: Alert and Oriented X 3 Finger Stick Blood Glucose: 102 - Systems Exam Head: Present: Atraumatic, Normocephalic Pupils: Present: PERRL Extroacular Muscles: Present: EOMI Conjunctiva: Present: Normal Mouth: Present: Moist Mucous Membranes Respiratory/Chest: Present: Clear to Auscultation, Good Air Exchange. No: Respiratory Distress, Accessory Muscle Use Cardiovascular: Present: Regular Rate and Rhythm, Normal S1, S2, Tachycardic. No: Murmurs Abdomen: Present: Distention, Normal Bowel Sounds. No: Tenderness, Peritoneal Signs, Rebound, Guarding Lower Extremity: Present: Normal Inspection. No: Edema Neurological: Present: GCS=15, CN II-XII Intact, Speech Normal Skin: Present: Warm, Dry, Normal Color. No: Rashes Psychiatric: Present: Alert, Oriented x 3, Normal Insight, Normal Concentration <Darleen Tyler - Last Filed: 11/08/18 05:25> Vital Signs Temp Pulse Resp BP Pulse Ox 11/08/18 05:29 78 18 145/76 100 11/08/18 03:33 18 95 11/08/18 03:28 97.5 F L 105 H 18 165/95 H 95 <Benny Cardoza - Last Filed: 11/08/18 06:20> Medical Decision Making ED Course and Treatment: 11/08/18 04:00 Impression: 48 year old male with abdominal discomfort and bloating Plan: - Pepcid - Zofran - Mylicon - Maalox - Reassess and disposition Prior Visits: Notes and results from previous visits were reviewed. Progress Notes: 11/08/18 05:26 Patient states his symptoms have improved. Patient hemodynamically stable and optimized for discharge to follow up with primary medical doctor. Patient in agreement with plan of management. - Medication Orders Current Medication Orders: Al Hydrox/Mg Hydrox/Simethicone (Maalox Plus 30 Ml) 30 ml PO STAT STA Stop: 11/08/18 03:52 Famotidine (Pepcid) 20 mg PO STAT STA Stop: 11/08/18 03:52 Ondansetron HCl (Zofran Odt) 4 mg PO STAT STA Stop: 11/08/18 03:52 Simethicone (Mylicon Chew Tab) 80 mg PO ONCE ONE Stop: 11/08/18 03:54 <Darleen Tyler - Last Filed: 11/08/18 05:25> ED Course and Treatment: Seen and examined with resident. 48 y/o M p/w abdominal bloating after drinking beer. On exam, abdomen soft and nontender. [place] better after treatment, discharged home. - Medication Orders Current Medication Orders: Discontinued Medications Al Hydrox/Mg Hydrox/Simethicone (Maalox Plus 30 Ml) 30 ml PO STAT STA Stop: 11/08/18 03:52 Last Admin: 11/08/18 04:05 Dose: 30 ml Famotidine (Pepcid) 20 mg PO STAT STA Stop: 11/08/18 03:52 Last Admin: 11/08/18 04:06 Dose: 20 mg Ondansetron HCl (Zofran Odt) 4 mg PO STAT STA Stop: 11/08/18 03:52 Last Admin: 11/08/18 04:06 Dose: 4 mg Simethicone (Mylicon Chew Tab) 80 mg PO ONCE ONE Stop: 11/08/18 03:54 Last Admin: 11/08/18 04:06 Dose: 80 mg <Benny Cardoza - Last Filed: 11/08/18 06:20> Disposition/Present on Arrival - Present on Arrival Any Indicators Present on Arrival: No History of DVT/PE: No History of Uncontrolled Diabetes: No Urinary Catheter: No History of Decub. Ulcer: No History Surgical Site Infection Following: None - Disposition Have Diagnosis and Disposition been Completed?: Yes Disposition Time: 05:23 <Darleen Tyler L - Last Filed: 11/08/18 05:25> <Benny Cardoza - Last Filed: 11/08/18 06:20> - Disposition Diagnosis: Abdominal bloating Disposition: HOME/ ROUTINE Condition: GOOD Discharge Instructions (ExitCare): Gas and Bloating Additional Instructions: Follow up with your primary medical doctor within one week Resume your home medications as prescribed Return to ED if symptoms return or worsen Forms: [employer] (Urdu)
[2018-11-08 05:31] VITALS: BP 145/76; PULSE 78; O2SAT 100
--- NOTE | 2018-11-08 19:46 | CARD ---
APPROVED REPORT Date of service: 11/08/2018 EKG Measurement Heart [id number] [id number] <Conclusion> Sinus tachycardia Nonspecific T wave abnormality Abnormal ECG
== END 2018-11-08 05:30 | disposition home or self-care (01) ==
LOC: ED 03:18
DX: R14.0 Abdominal distension (gaseous) (principal); I10 Essential (primary) hypertension; E11.9 Type 2 diabetes mellitus without complications; F17.210 Nicotine dependence, cigarettes, uncomplicated; J44.9 Chronic obstructive pulmonary disease, unspecified

== ENCOUNTER 2018-12-05 11:33 | Emergency (ER) | payer MEDICARE ==
[2018-12-05 11:40] VITALS: RESP 18; TEMP 98.2; BMI 26.4
--- NOTE | 2018-12-05 13:45 | ED PDOC ---
Arrival/HPI - General Chief Complaint: Anxiety Time Seen by Provider: 12/05/18 13:19 Historian: Patient - History of Present Illness Narrative History of Present Illness (Text): 12/05/18 13:39 CC: panic attack HPI: 48 yo male w/ PMH of Hypertension, DM2, pinched nerve, and panic attacks comes to ED for evaluation of a panic attack. Patient states he has been feeling more anxious due to being recently stuck in an elevator at [facility]. Patient states that he normally has a prescription of alprazolam prescribed to him by his doctors but he ran out of his meds. Patient states that today he felt pain from his pinched neck which made him start having palpitations that led him to the feeling that he was going to . Patient states he did not feel shortness of breath, n/v, diaphoresis, pain radiating into his neck or jaw during this time. Denies fevers, chills, constipation or diarrhea, and dysuria. States he will follow up with his primary and pain management team for refills but feels uncomfortable currently due to this anxiety. Patient currently has on prescription at home today. Time/Duration: 24 hours Symptom Onset: Sudden Symptom Course: Unchanged Activities at Onset: Rest Context: Sitting Past Medical History - Provider Review Nursing Documentation Reviewed: Yes - Infectious Disease Hx of Infectious Diseases: None - Tetanus Immunization Tetanus Immunization: Unknown - Cardiac Hx Cardiac Disorders: Yes Hx Angina: Yes Hx Hypertension: Yes - Pulmonary Hx Respiratory Disorders: Yes Hx Chronic Obstructive Pulmonary Disease (COPD): Yes Hx Pneumonia: Yes - Neurological Hx Neurological Disorder: No - HEENT Hx HEENT Disorder: No - Renal Hx Renal Disorder: No - Endocrine/Metabolic Hx Endocrine Disorders: Yes Hx Diabetes Mellitus Type 2: Yes - Hematological/Oncological Hx Blood Disorders: No - Integumentary Hx Dermatological Disorder: No Other/Comment: right foot ulcer mrsa possibly - Musculoskeletal/Rheumatological Hx Musculoskeletal Disorders: Yes Hx Falls: Yes (Aug 2016) Hx Unsteady Gait: Yes - Gastrointestinal Hx Gastrointestinal Disorders: No - Genitourinary/Gynecological Hx Genitourinary Disorders: No - Psychiatric Hx Psychophysiologic Disorder: Yes Hx Anxiety: Yes Hx Depression: Yes Hx Hallucinations: Yes Hx Substance Use: Yes - Surgical History Other/Comment: "left foot surgery" - Anesthesia Hx Anesthesia: Yes Hx Anesthesia Reactions: No Hx Malignant Hyperthermia: No - Suicidal Assessment Feels Threatened In Home Enviroment: No Family/Social History - Physician Review Nursing Documentation Reviewed: Yes Family/Social History: No Known Family HX Smoking Status: Light Smoker < 10 Cigarettes Daily Hx Alcohol Use: Yes Frequency of alcohol use: Socially Hx Substance Use: Yes Hx Substance Use Treatment: No Allergies/Home Meds Allergies/Adverse Reactions: Allergies No Known Allergies Allergy (Verified 12/05/18 13:22) Home Medications: Home Meds Medication Instructions Recorded Confirmed Alprazolam [Xanax] 2 mg PO DAILY PRN 07/26/17 12/05/18 Lisinopril [Zestril] 25 mg PO DAILY 07/26/17 12/05/18 metFORMIN [glucOPHAGE] 850 mg PO BID 07/26/17 12/05/18 Review of Systems - Review of Systems Constitutional: Normal. absent: Fatigue, Weight Change, Fevers Eyes: Normal. absent: Vision Changes, Photophobia, Eye Pain ENT: Normal. absent: Hearing Changes, Tinnitus, TMJ Pain, Sore Throat, Rhinorrhea, Epistaxis Respiratory: Normal. absent: SOB, Cough, Sputum, Wheezing Cardiovascular: Palpitations. absent: Normal, Chest Pain, Edema Gastrointestinal: Normal. absent: Abdominal Pain, Stool Changes, Constipation, Nausea, Vomiting Genitourinary Male: Normal. absent: Dysuria, Frequency, Hematuria Musculoskeletal: Normal. absent: Arthralgias, Back Pain, Neck Pain Skin: Normal Neurological: Normal. absent: Headache, Dizziness, Focal Weakness Endocrine: Normal. absent: Diaphoresis, Polyuria, Polydipsia Hemo/Lymphatic: Normal. absent: Adenopathy, Easy Bleeding Psychiatric: Anxiety. absent: Normal Physical Exam Vital Signs Reviewed: Yes Vital Signs Temp Pulse Resp BP Pulse Ox 12/05/18 11:38 98.2 F 89 18 130/81 98 Temperature: Afebrile Blood Pressure: Normal Pulse: Regular Respiratory Rate: Normal Appearance: Positive for: Well-Appearing, Non-Toxic, Comfortable Pain Distress: None Mental Status: Positive for: Alert and Oriented X 3 - Systems Exam Head: Present: Atraumatic, Normocephalic Pupils: Present: PERRL Extroacular Muscles: Present: EOMI Conjunctiva: Present: Normal Mouth: Present: Moist Mucous Membranes Respiratory/Chest: Present: Clear to Auscultation, Good Air Exchange. No: Respiratory Distress, Accessory Muscle Use Cardiovascular: Present: Regular Rate and Rhythm, Normal S1, S2. No: Murmurs, Tachycardic Abdomen: Present: Normal Bowel Sounds. No: Tenderness, Distention, Peritoneal Signs, Rebound, Guarding Upper Extremity: Present: Normal Inspection. No: Cyanosis, Edema Lower Extremity: Present: Normal Inspection. No: Edema, CALF TENDERNESS Neurological: Present: GCS=15, CN II-XII Intact, Speech Normal Skin: Present: Warm, Dry, Normal Color. No: Rashes Psychiatric: Present: Alert, Oriented x 3, Normal Insight, Normal Concentration Medical Decision Making ED Course and Treatment: 12/05/18 13:47 Impression 48 yo male w/ PMH of Hypertension, DM2, pinched nerve, and panic attacks comes to ED for evaluation of a panic attack. Plan -Alprazolam Prior Visits All prior documentation and lab work reviewed prior to evaluation Progress Notes discharge s/p medication administration denies all cardiac symptoms recommended to followup outpatient to get refills on his chronic medications Re-evaluation Time: 13:58 Reassessment Condition: Re-examined, Improving,but remains with symptoms Disposition/Present on Arrival - Present on Arrival Any Indicators Present on Arrival: No History of DVT/PE: No History of Uncontrolled Diabetes: No Urinary Catheter: No History of Decub. Ulcer: No History Surgical Site Infection Following: None - Disposition Have Diagnosis and Disposition been Completed?: Yes Diagnosis: Panic attack Disposition: HOME/ ROUTINE Disposition Time: 14:02 Patient Plan: Discharge Condition: FAIR Additional Instructions: 1. Please followup with primary medical doctor for refill of chronic medical conditions Forms: [email or web address] (Chinese)
[2018-12-05 14:44] VITALS: BP 127/81; PULSE 85; O2SAT 100
--- NOTE | 2018-12-05 19:13 | CARD ---
APPROVED REPORT Date of service: 12/05/2018 EKG Measurement Heart [id number] [id number] <Conclusion> Normal sinus rhythm Normal ECG
== END 2018-12-05 14:46 | disposition home or self-care (01) ==
LOC: ED 11:33
DX: F41.0 Panic disorder [episodic paroxysmal anxiety] (principal); I10 Essential (primary) hypertension; E11.9 Type 2 diabetes mellitus without complications; F17.210 Nicotine dependence, cigarettes, uncomplicated; J44.9 Chronic obstructive pulmonary disease, unspecified